=== PATIENT | male | born 1950 | race Caucasian/White ===

== ENCOUNTER 2017-01-09 20:58 | Observation (INO) | payer MEDICARE, OTHER ==
[~2017-01-09] VITALS: Ht 167.6 cm; Wt 79.6 kg
[~2017-01-09 20:58] MED LIST: ACET325T PO; BACL10TA PO; CARV3.12 PO; CLON0.5T PO; CLOP75TA PO; DEXI30CA PO; DONE10TA7 PO; FERR325T PO; FLUO40CA PO; GABA600T PO; LOVA10TA PO; MUCI30TA2 PO; MUCI600T PO; MULT-135 PO; NORC5TAB PO; OXYGENTANK NAS.CANULA; PRED10PA2 PO; SINE25TA PO; SYMB160A INH; TAMS0.4C4 PO; VENTAER INH
[2017-01-09 20:59] VITALS: BP 132/61; PULSE 100; RESP 18; TEMP 98.6; O2SAT 96
[2017-01-09 21:00] VITALS: O2SAT 91
[2017-01-09 21:08] VITALS: BP 101/56; PULSE 105; RESP 16; O2SAT 94
[2017-01-09] MEDS ORDERED: SODIUM CHLOR 0.9% 1000 ML INJ 1,000 ML IV ONE (21:16)
--- NOTE | 2017-01-09 21:16 | PD ---
HPI Chief Complaint: headache Time Seen by Provider: 21:16 Travel History International Travel<30 days: No Contact w/Intl Traveler<30days: No Traveled to known affect area: No History of Present Illness HPI 66-year-old male presents to the emergency department by EMS transport with 1-1/ 2 hour complaint of sudden onset right retro-orbital severe headache with photophobia and nausea no vomiting and en route to the hospital development of slurred speech. Patient with prior history of subarachnoid hemorrhage 3 years ago. Patient is presently on Plavix. Patient was found to be normotensive en route to the hospital. Blood sugar in normal range. Patient with history of COPD, anxiety depression, dyslipidemia, dementia, hematuria, parkinsonism, subarachnoid hemorrhage with seizure with previous coil placement 3 years ago in [place], [place] and laminectomy of cervical spine. PFSH Past Medical History Asthma: No Autoimmune Disease: No Blood Disorders: No Anxiety: Yes Depression: Yes Heart Rhythm Problems: Yes (Palpitations) Cancer: No Cardiovascular Problems: Yes (Stents) High Cholesterol: Yes Chemotherapy: No Chest Pain: No COPD: Yes Dementia: Yes Diabetes: No Diminished Hearing: No Diverticulitis: Yes Endocrine: No Genitourinary: Yes Hepatitis: No Hiatal Hernia: No Hypertension: Yes Immune Disorder: No Insomnia: Yes Musculoskeletal: Yes (Neck) Neurologic: Yes (Parkinsons) Psychiatric: Yes Reproductive: No Respiratory: Yes Immunizations Current: Yes Radiation Therapy: No Seizures: Yes (WHEN HAD SUARACHNOID HEMORRHAGE) Sleep Apnea: No Thyroid Disease: No Past Surgical History Abdominal Surgery: No Cardiac Surgery: No Ear Surgery: No Endocrine Surgery: No Eye Surgery: No Genitourinary Surgery: No Neurologic Surgery: Yes (STENT IN SUBARACHNOID ARTERY) Oral Surgery: No Thoracic Surgery: Yes (BACK, CERVICLE FUSION, LAMENECTOMY) Social History Alcohol Use: No (QUIT 3 MONTHS AGO) Tobacco Use: Yes (1 PPD) Substance Use: No Allergies-Medications (Allergen,Severity, Reaction): Coded Allergies: No Known Allergies (Unverified , 01/09/17) Reported Meds & Prescriptions Reported Meds & Active Scripts Active Oxygen tank (Oxygen) 1 Ea Tank 2 Liter CAMERON.CANULA CONTINUOUS Oxygen Concentrator Portable Gaseous 2 L/min via Nasal Cannula Continuous For 99 months Reported Meloxicam 15 Mg Tab 15 Mg PO DAILY Potassium Chloride ER (Potassium Chloride) 10 Meq Cap 10 Meq PO DAILY Lasix (Furosemide) 40 Mg Tab 40 Mg PO DAILY Acetaminophen 325 Mg Tab 650 Mg PO Q4H PRN Mucinex DM (Dextromethorphan-Guaifenesin) 30-600 Mg Tab 1 Tab PO BID PRN Gabapentin 600 Mg Tab 600 Mg PO TID Tamsulosin (Tamsulosin HCl) 0.4 Mg Cap 0.4 Mg PO HS Lovastatin 10 Mg Tab 10 Mg PO HS Donepezil 10 Mg Tab 10 Mg PO HS [place] (Hydrocodone-Acetaminophen) 5-325 mg Tab 1 Tab PO BID Sinemet (Carbidopa-Levodopa) 25-100 Mg Tab 1 Tab PO TID Symbicort Inh (Budesonide/Formoterol Fumarate) 160-4.5 Mcg/Act Aero 1 Puff INH Q12HR Mucinex ER 12 HR (Guaifenesin) 600 Mg Tasha 600 Mg PO BID Ferrous Sulfate 325 Mg Tab 325 Mg PO BID Clonazepam 0.5 Mg Tab 0.5 Mg PO BID Carvedilol 3.125 Mg Tab 3.125 Mg PO BID Multi Vitamin (Multiple Vitamin) 1 Tab Tab 1 Tab PO DAILY Fluoxetine (Fluoxetine HCl) 40 Mg Cap 40 Cap PO DAILY Dexilant (Dexlansoprazole) 30 Mg Cap 30 Mg PO DAILY Clopidogrel (Clopidogrel Bisulfate) 75 Mg Tab 75 Mg PO DAILY Ventolin Hfa 18 GM Inh (Albuterol Sulfate) 90 Mcg/Act Aer 2 Puff INH Q4H PRN Baclofen 10 Mg Tab 10 Mg PO TID Review of Systems Except as stated in HPI: all other systems reviewed are Neg General / Constitutional: No: Fever Eyes: Positive: Visual changes ( left field deficit --old) HENT: No: Congestion Cardiovascular: No: Chest Pain or Discomfort Respiratory: No: Cough Gastrointestinal: No: Nausea, Vomiting Genitourinary: No: Flank Pain Musculoskeletal: No: Myalgias, Arthralgias Skin: No Rash Neurologic: Positive: Weakness, Headache, Slurred Speech, No: Paresthesia Psychiatric: No: Anxiety Hematologic/Lymphatic: No: Easy Bruising Physical Exam Narrative GENERAL: Well-developed well-nourished male in obvious discomfort holding his head;; GCS 15 SKIN: Warm and dry. HEAD: Atraumatic. Normocephalic. EYES: Pupils equal and round. No scleral icterus. No injection or drainage. ENT: No nasal bleeding or discharge. Mucous membranes pink and moist. NECK: Trachea midline. No JVD. No nuchal rigidity. CARDIOVASCULAR: Regular rate and rhythm. RESPIRATORY: No accessory muscle use. Clear to auscultation. Breath sounds equal bilaterally. GASTROINTESTINAL: Abdomen soft, non-tender, nondistended. Hepatic and splenic margins not palpable. MUSCULOSKELETAL: Extremities without clubbing, cyanosis, or edema. No obvious deformities. NEUROLOGICAL: Awake and alert. No obvious cranial nerve deficits; patient was noted left eye left lateral field cut. Motor grossly within normal limits. Five out of 5 muscle strength in the arms and legs. Mild right-sided pronator drift. Mild lower extremity limb ataxia. Mild slurred speech speech. NIHSS:4 PSYCHIATRIC: Appropriate mood and affect; insight and judgment normal. Data Data Last Documented VS Vital Signs Date Time Temp Pulse Resp B/P Pulse Ox O2 Delivery O2 Flow Rate FiO2 01/09/17 21:39 94 Nasal Cannula 2 01/09/17 21:08 105 16 101/56 01/09/17 20:59 98.6 Orders Diet Npo (01/10/17 Breakfast) Activity Bed Rest (01/09/17 ) Electrocardiogram (01/09/17 ) I-Stat Creatinine (01/09/17 21:16) I-Stat Profile (01/09/17 21:16) Prothrombin Time / Inr (Pt) (01/09/17 21:16) Act Partial Throm Time (Ptt) (01/09/17 21:16) Complete Blood Count With Diff (01/09/17 21:16) Fibrinogen (01/09/17 21:16) Creatine Kinase (Cpk) (01/09/17 21:16) Troponin I (01/09/17 21:16) Ua Includes Microscopic (01/09/17 21:16) Drug Screen, Random Urine (01/09/17 21:16) Type And Screen (01/09/17 21:16) Ct Brain W/O Iv Contrast(Rout) (01/09/17 ) Consult Neurology (01/09/17 ) Blood Glucose (01/09/17 21:16) Ecg Monitoring (01/09/17 21:16) Neuro Checks Q2HX12,Q4H (01/09/17 21:16) Nursing Bedside Swallow Assess .ONCE (01/09/17 21:16) Iv Access Insert/Monitor (01/09/17 21:16) NPO (01/09/17 21:16) Oximetry (01/09/17 21:16) Oxygen Administration (01/09/17 21:16) Sodium Chlor 0.9% 1000 Ml Inj (Ns 1000 M (01/09/17 21:16) Resp Oxygen Cameron C Titrat 1-4 L (01/09/17 21:16) Cath For Specimen (01/09/17 21:16) (Hub Use Only)Inp Phy Cons/Ref (01/09/17 ) Iohexol 350 Inj (Omnipaque 350 Inj) (01/09/17 21:25) Cta Brain W Iv Contrast W 3d (01/09/17 ) Cta Neck W Iv Contrast W 3d (01/09/17 ) Ondansetron Inj (Zofran Inj) (01/09/17 21:45) Sodium Chlor 0.9% 1000 Ml Inj (Ns 1000 M (01/09/17 21:45) Morphine Inj (Morphine Inj) (01/09/17 22:15) Alcohol (Ethanol) (01/09/17 22:05) Magnesium (Mg) (01/09/17 22:05) Admit Order (Ed Use Only) (01/09/17 ) ^ Saline Lock (01/09/17 22:42) Resp Oxygen Cameron C Titrat 1-4 L (01/09/17 ) ^ Notify Dr: Other (01/09/17 22:42) Sodium Chloride 0.9% Flush (Ns Flush) (01/10/17 09:00) Sodium Chloride 0.9% Flush (Ns Flush) (01/09/17 22:45) Labs Laboratory Tests Test 01/09/17 21:00 White Blood Count 6.3 TH/MM3 Red Blood Count 4.68 MIL/MM3 Hemoglobin 15.5 GM/DL Bedside Hemoglobin 16.0 G/DL Hematocrit 45.5 % Bedside Hematocrit 47.0 % Mean Corpuscular Volume 97.3 FL Mean Corpuscular Hemoglobin 33.2 PG Mean Corpuscular Hemoglobin 34.1 % Concent Red Cell Distribution Width 13.2 % Platelet Count 217 TH/MM3 Mean Platelet Volume 8.4 FL Neutrophils (%) (Auto) 62.6 % Lymphocytes (%) (Auto) 27.1 % Monocytes (%) (Auto) 9.8 % Eosinophils (%) (Auto) 0.4 % Basophils (%) (Auto) 0.1 % Neutrophils # (Auto) 3.9 TH/MM3 Lymphocytes # (Auto) 1.7 TH/MM3 Monocytes # (Auto) 0.6 TH/MM3 Eosinophils # (Auto) 0.0 TH/MM3 Basophils # (Auto) 0.0 TH/MM3 CBC Comment DIFF FINAL Differential Comment Prothrombin Time 10.0 SEC Prothromb Time International 0.9 RATIO Ratio Activated Partial 25.9 SEC Thromboplast Time Fibrinogen 356 mg/dL Bedside Sodium 141 MMOL/L Bedside Potassium 3.9 MMOL/L Bedside Chloride 102 MMOL/L Bedside Blood Urea Nitrogen 18 MG/DL Bedside Creatinine 1.0 MG/DL Bedside Glucose 116 MG/DL Total Creatine Kinase 162 U/L Troponin I LESS THAN 0.02 NG/ML MDM Medical Decision Making Medical Screen Exam Complete: Yes Emergency Medical Condition: Yes Interpretation(s) I-STAT chemistries within normal range with normal creatinine 1.0; hemoglobin hematocrit 16/47% EKG normal sinus rhythm rate 87 first-degree AV block no acute ST elevation or injury pattern change noted baseline artifact is present. Differential Diagnosis stroke alert, ICH/SAH, migraine variant Narrative Course Stroke alert called @ 8:57PM NSR no h/o afib; prior SAH 3 years ago "same symptoms"; NIHSS: 4 patient is alert not his name and month and unknown age has normal opening and closing of eyes resolved gaze appears intact does have a visual field except deficit to the left upper outer field no facial paralysis slight drift of right upper extremity left upper extremity normal right lower extremity normal function right lower extremity normal function mild limb ataxia of right lower extremity normal sensory exam no aphasia mild dysarthria and no inattention. To CT @ 9:05 PM Patient has returned from CT patient reassessed still noted to have field deficit however upon further investigation this is a chronic issue for him also continues to have some minimal drift of right upper extremity alkalosis not as noticed at this time and patient notes that has chronic lower extremity weakness related to previous and patient now reports he has noted a change in his speech over the past 1-2 days but the severe sudden onset headache today just prior to arrival. CTA resulted no vascula or aneurysmal changes; patient relays that he has noted a change in his speech at least since yesterday but his speech is different and slurred. Again -- the patient reports that the headache is new, the left visual disturbance is not new, the lower extremity weakness is not new and he has chronic weakness of all of his extremities since his SAH and his cervical laminectomy. Patient states his headache is the same as his prior SAH and he does not normally have severe headaches and denies migraine or cluster headaches. No FH SAH or ICH. No injury or fall. No recent infections Critical Care Narrative Aggregate critical care time was 35 minutes. Time to perform other separately billable procedures was not included in the critical care time. My time did not include minutes spent treating any other patients simultaneously or on activities that did not directly contribute to the patient's treatment. The services I provided to this patient were to treat and/or prevent clinically significant deterioration that could result in: Intracranial hemorrhage, I provided critical care services requiring my management, as noted below: Chart data review, documentation time, medication orders and management, vital sign assessments/reviewing monitor data, ordering and reviewing lab tests, ordering and interpreting/reviewing x-rays and diagnostic studies, care of the patient and discussion of the patient with the admitting physicians. Physician Communication Physician Communication @ 21:[address] Galeana [phone] --not good TPA candidate in view of SAH history--notify w rad CT read ( no obvious bleed by my read); rad reading called to Dr Galeana 21:34 not TPA candidate -- per nathaly Howard "no bleed, questionable left cerebellar infarct" ---:>wants CTA --images done at time of non contrast CT results pending. @ 21:56 CTA results conveyed to the neurologist; per Dr Galeana --patient is not a TPA candidate Discussed with ASHLYN Landaverde --admit to Dr Carey Diagnosis Primary Impression: Cephalalgia Additional Impressions: TIA (transient ischemic attack) Qualified Code: G45.9 - Transient cerebral ischemia, unspecified type COPD (chronic obstructive pulmonary disease) Qualified Code: J44.9 - Chronic obstructive pulmonary disease, unspecified COPD type History of subarachnoid hemorrhage Parkinsons Dementia Qualified Code: F03.90 - Dementia without behavioral disturbance, unspecified dementia type Admitting Information Admitting Physician Requests: Admit Manju Rios MD Jan 09, 2017 21:16
[2017-01-09 21:24] LABS: I-STAT POTASSIUM 3.9 MMOL/L (3.5-4.9); I-STAT SODIUM 141 MMOL/L (138-146)
[2017-01-09] MEDS ORDERED: IOHEXOL 350 MG/ML 10 ML VIAL (for RAD DIAG) IV ONE (21:25)
[2017-01-09 21:32] LABS: AUTOMATED NEUTROPHIL # 3.9 TH/MM3 (1.8-7.7); BASOPHIL % 0.1 % (0.0-2.0); EOSINOPHIL % 0.4 % (0.0-4.0); HEMATOCRIT 45.5 % (39.0-51.0); HEMO FLAGS DIFF FINAL; LYMPH % 27.1 % (9.0-44.0); LYMPHOCYTE # 1.7 TH/MM3 (1.0-4.8); MEAN CELL VOLUME 97.3 FL (80.0-100.0); MEAN CORPUSCULAR HEMOGLOBIN 33.2 PG (27.0-34.0); MEAN CORPUSCULAR HGB CONC 34.1 % (32.0-36.0); MONO % 9.8 % (0.0-8.0); NEUT % 62.6 % (16.0-70.0); PLATELET COUNT 217 TH/MM3 (150-450); RED BLOOD COUNT 4.68 MIL/MM3 (4.50-5.90); RED CELL DISTRIBUTION WIDTH 13.2 % (11.6-17.2); WHITE BLOOD COUNT 6.3 TH/MM3 (4.0-11.0)
--- NOTE | 2017-01-09 21:35 | RADRPT ---
EXAM DATE/TIME: 01/09/2017 21:11 [facility] COMPARISON: No previous studies available for comparison. INDICATIONS : Stroke alert; right sided weakness and slurred speech. RADIATION DOSE: 37.79 CTDIvol (mGy) Dr. Rios notified of these findings at 9: [address] Howard. MEDICAL HISTORY : Non-responsive. SURGICAL HISTORY : Non-responsive. ENCOUNTER: Initial ACUITY: 1 day PAIN SCALE: Non-responsive LOCATION: cranial TECHNIQUE: Multiple contiguous axial images were obtained of the head. Using automated exposure control and adj ustment of the mA and/or kV according to patient size, radiation dose was kept as low as reasonably a chievable to obtain optimal diagnostic quality images. FINDINGS: CEREBRUM: Coils in the right suprasellar cistern. Nonspecific white matter changes. The ventricles are normal f or age. No evidence of midline shift, mass lesion, hemorrhage or acute infarction. No extra-axial f luid collections are seen. POSTERIOR FOSSA: Questionable left cerebellar infarct. The brainstem is intact. The 4th ventricle is midline. The ce rebellopontine angle is unremarkable. EXTRACRANIAL: The visualized portion of the orbits is intact. SKULL: The calvaria is intact. No evidence of skull fracture. CONCLUSION: 1. Questionable left cerebellar infarct. 2. Status post coiling in the right suprasellar cistern/distal internal carotid artery. Constantine Howard MD on January 09, 2017 at 21:29 Board Certified Radiologist. This report was verified electronically.
[2017-01-09 21:37] LABS: APTT (PATIENT) 25.9 SEC (24.3-30.1); INTERNATIONAL NORMALIZED RATIO 0.9 RATIO
[2017-01-09 21:43] LABS: CREATINE KINASE 162 U/L (39-308)
--- NOTE | 2017-01-09 21:44 | RADRPT ---
EXAM DATE/TIME: 01/09/2017 21:11 [facility] COMPARISON: No previous studies available for comparison. INDICATIONS : Stroke alert, right sided weakness, blurred vision. IV CONTRAST: 79 cc Omnipaque 350 (iohexol) IV ; Cumulative dose for multiple exams. RADIATION DOSE: 28.07 CTDIvol (mGy) ; Combined studies MEDICAL HISTORY : None SURGICAL HISTORY : None. ENCOUNTER: Initial ACUITY: 1 day PAIN SCALE: 0/10 LOCATION: cranial TECHNIQUE: Volumetric scanning was performed using a multi-row detector CT scanner. The data was post processed with a variety of visualization algorithms including full volume maximum intensity projection, multi -planar sliding thin slab reformation, curved planar reformation, and surface rendering techniques. Using automated exposure control and adjustment of the mA and/or kV according to patient size, radiat ion dose was kept as low as reasonably achievable to obtain optimal diagnostic quality images. FINDINGS: There is excellent visualization of the major intracranial arteries out to the second-order branch ve ssels. There is no evidence for aneurysm, vessel truncation or stenosis, and no evidence for vascula r malformation. There is a stent within the distal right internal carotid artery. There are also adjacent coils from previous intervention. No residual aneurysm. No thrombosis, aneurysm or significant stenosis within t he middle, anterior or posterior vertebral arteries. Vertebrobasilar junction normal. CONCLUSION: 1. Stent within the distal right internal carotid artery and adjacent coils. No residual aneurysm see n. 2. No thrombus or stenosis. Constantine Howard MD on January 09, 2017 at 21:35 Board Certified Radiologist. This report was verified electronically.
[2017-01-09] MEDS ORDERED: SODIUM CHLOR 0.9% 1000 ML INJ 1,000 ML IV SCH ×2 (21:45→23:09)
[2017-01-09] MEDS ORDERED: ONDANSETRON HCL 4 MG/2 ML VIAL IV PUSH ONE (21:45)
[2017-01-09] MEDS ORDERED: MORPHINE SULFATE 4 MG/ML INJ IV PUSH ONE (22:15)
--- NOTE | 2017-01-09 22:23 | RADRPT ---
EXAM DATE/TIME: 01/09/2017 21:11 [facility] COMPARISON: No previous studies available for comparison. INDICATIONS : Stroke alert; slurred speech. IV CONTRAST: 79 cc Omnipaque 350 (iohexol) IV ; Cumulative dose for multiple exams. RADIATION DOSE: 28.07 CTDIvol (mGy) ; Combined studies MEDICAL HISTORY : Non-responsive. SURGICAL HISTORY : Non-responsive. ENCOUNTER: Initial ACUITY: 1 day PAIN SCALE: Non-responsive LOCATION: neck Elevated flow velocities and ICA/CCA ratios have been found to correlate with increased degrees of vessel stenosis, calculated as percentage of diameter relative to a normal segment of distal ICA/CCA. TECHNIQUE: Volumetric scanning was performed using a multirow detector CT scanner. The data was post processed with a variety of visualization algorithms including full-volume maximum intensity projection, multip lanar sliding thin-slab reformation, curved-planar reformation, and surface-rendering techniques. Us ing automated exposure control and adjustment of the mA and/or kV according to patient size, radiatio n dose was kept as low as reasonably achievable to obtain optimal diagnostic quality images. FINDINGS: AORTIC ARCH: There is a three-vessel origin of the great vessels from the aorta. No evidence of ostial narrowing. RIGHT CAROTID: The common carotid artery is intact. The carotid bulb has a normal configuration without ulceration o r narrowing. The internal carotid artery lumen is smooth without stenosis. The external carotid zac ry is intact. LEFT CAROTID: The common carotid artery is intact. The carotid bulb has a normal configuration without ulceration or narrowing. The internal carotid artery lumen is smooth without stenosis. The external carotid ar aziza is intact. VERTEBRALS: The vertebral arteries have a symmetric diameter. No stenotic lesions are seen. CONCLUSION: 1. No carotid stenosis or thrombus. Constantine Howard MD on January 09, 2017 at 22:18 Board Certified Radiologist. This report was verified electronically.
[2017-01-09] MEDS ORDERED: POTA10CA PO (22:29)
[2017-01-09] MEDS ORDERED: MELO-1 PO (22:29)
[2017-01-09] MEDS ORDERED: FURO1TAB60 PO (22:29)
[2017-01-09 22:45] LABS: MAGNESIUM 2.3 MG/DL (1.5-2.5)
[2017-01-09] MEDS ORDERED: SODIUM CHLORIDE 0.9% FLUSH 5 ML FLUSH IVF PRN (22:45)
[2017-01-09 22:48] VITALS: O2SAT 91
[2017-01-09] MEDS ORDERED: ONDANSETRON HCL 4 MG/2 ML VIAL IVP PRN (23:15)
[2017-01-09] MEDS ORDERED: LORazepam 1 MG TAB PO PRN (23:15)
[2017-01-09] MEDS ORDERED: LORazepam 2 MG/ML VIAL IV PUSH PRN ×4 (23:15)
[2017-01-09] MEDS ORDERED: NALOXONE HCL 0.4 MG/ML AMP IV PRN (23:15)
[2017-01-09] MEDS ORDERED: SODIUM CHLORIDE 0.9% FLUSH 5 ML FLUSH FLUSH PRN (23:15)
[2017-01-09] MEDS ORDERED: LORazepam 2 MG TAB PO PRN (23:15)
[2017-01-09] MEDS ORDERED: ACETAMINOPHEN 325 MG TAB PO PRN (23:15)
[2017-01-10] VITALS (7 sets, daily range): BP systolic 106–130; BP diastolic 67–78; PULSE 66–75; RESP 18–20; TEMP 95.8–97; O2SAT 90–94
[2017-01-10 00:07] LABS: BLOOD, URINE NEG (NEG); GLUCOSE,URINE NEG (NEG); HYALINE CAST, URINE 4 /lpf (RARE); KETONE, URINE NEG (NEG); MUCUS URINE FEW /lpf (OCC); NITRITE,URINE NEG (NEG); PH, URINE 5.5 (5.0-8.5); URINE COLOR YELLOW (YELLW/STRAW)
[2017-01-10 00:09] LABS: AMPHETAMINE, URINE NEG (NEG); BARBITURATES, URINE NEG (NEG); COCAINE, URINE NEG (NEG)
[2017-01-10] MEDS: THIAMINE INJ 100 MG in SODIUM CHLORIDE 0.9% INJ 100 ML IV SCH (00:46)
[2017-01-10] MEDS ORDERED: MORPHINE SULFATE 4 MG/ML INJ IV ONE (02:45)
[2017-01-10] MEDS ORDERED: ACETAMINOPHEN 325 MG TAB PO PRN (02:45)
--- NOTE | 2017-01-10 08:50 | HHI.HP ---
[facility] Unknown Admission Diagnosis Acute cephalgia h/o SAH; TIA/CVA; COPD Diagnoses: Chief Complaint: headache (Zaida Shrestha Wil AGUIRRE) Travel History International Travel<30 Days: No Contact w/Intl Traveler <30 Da: No Traveled to Known Affected Are: No (Zaida ShresthaEryn AGUIRRE) History of Present Illness This is a 66-year-old male patient with history hypertension, bladder cancer on remission, seizure after subarachnoid hemorrhage 3 years ago for which she had stent placed intracranially, brain aneurysms, tobacco abuse, chronic back and neck pain secondary to cervical spine laminectomy. Patient has residual short- term memory and has chronic weakness of legs left greater than right as well as arms. He does use a walker for ambulation. Patient presented to the emergency room via EMS complaining of 1-1/2 hour sudden onset of right frontal orbital headache associated with photophobia and nausea no vomiting. Patient was concerned as this was the type of headache he had when he had the subarachnoid hemorrhage 3 years ago. Patient is on Plavix. Patient is also a resident at assisted living facility for the last year. Patient presented as a stroke alert. Initially he was thought to have a left lateral visual cut defect but this was noted to be old. He was also noted with some mild slurred speech. NIH stroke scale was 4. A CT of the head was completed that was suggestive of possible old left cerebellar infarct. CTA was negative. Head CTA shows stent within the right distal internal carotid artery and adjacent coils. No residual aneurysms were seen. No thrombus or stenosis. Neurology was contacted from the emergency room. No TPA was given. Last Impressions Neck CTA 01/09/17 0000 Signed Impressions: Service Date/Time: Monday, January 09, 2017 21:11 - CONCLUSION: 1. No carotid stenosis or thrombus. Constantine Howard MD Head CTA 01/09/17 0000 Signed Impressions: Service Date/Time: Monday, January 09, 2017 21:11 - CONCLUSION: 1. Stent within the distal right internal carotid artery and adjacent coils. No residual aneurysm seen. 2. No thrombus or stenosis. Constantine Howard MD Head CT 01/09/17 0000 Signed Impressions: Service Date/Time: Monday, January 09, 2017 21:11 - CONCLUSION: 1. Questionable left cerebellar infarct. 2. Status post coiling in the right suprasellar cistern/distal internal carotid artery. Constantine Howard MD Patient has been evaluated per neurology, neurology workup is in progress. At this time patient indicates headache is relieved. He is slow to respond, and has occasional trouble with more finding which is not new. He is a poor historian, endorses short-term memory loss. He does have some mild tremors to upper extremities for which he is on Sinemet. Patient denies alcohol abuse, however his ethyl alcohol level was 162. Patient is admitted for further evaluation and treatment. (Zaida Shrestha) Review of Systems ROS Limitations: Speech Impaired, Poor Historian Respiratory: COMPLAINS OF: Wheezing, Shortness of breath Neurologic: COMPLAINS OF: Abnormal gait, Headache, Localized weakness, Tremor, Poor Balance (Zaida Shrestha) Past Family Social History Past Medical History COPD Parkinson's disease SAH s/p stenting (seizures only with acute SAH) HTN HLD anxiety BPH Chronic neck/back pain Bladder cancer, on remission, sees Dr. Isabel Tobacco abuse ? ETOH use Short term memory loss Past Surgical History Cerebral artery stenting Cervical spine fusion Laminectomy Cystoscopies Reported Medications Reported Meds & Active Scripts Active Oxygen tank (Oxygen) 1 Ea Tank 2 Liter [place] CONTINUOUS Oxygen Concentrator Portable Gaseous 2 L/min via Nasal Cannula Continuous For 99 months Reported Meloxicam 15 Mg Tab 15 Mg PO DAILY Potassium Chloride ER (Potassium Chloride) 10 Meq Cap 10 Meq PO DAILY Lasix (Furosemide) 40 Mg Tab 40 Mg PO DAILY Acetaminophen 325 Mg Tab 650 Mg PO Q4H PRN Mucinex DM (Dextromethorphan-Guaifenesin) 30-600 Mg Tab 1 Tab PO BID PRN Gabapentin 600 Mg Tab 600 Mg PO TID Tamsulosin (Tamsulosin HCl) 0.4 Mg Cap 0.4 Mg PO HS Lovastatin 10 Mg Tab 10 Mg PO HS Donepezil 10 Mg Tab 10 Mg PO HS [place] (Hydrocodone-Acetaminophen) 5-325 mg Tab 1 Tab PO BID Sinemet (Carbidopa-Levodopa) 25-100 Mg Tab 1 Tab PO TID Symbicort Inh (Budesonide/Formoterol Fumarate) 160-4.5 Mcg/Act Aero 1 Puff INH Q12HR Mucinex ER 12 HR (Guaifenesin) 600 Mg Tasha 600 Mg PO BID Ferrous Sulfate 325 Mg Tab 325 Mg PO BID Clonazepam 0.5 Mg Tab 0.5 Mg PO BID Carvedilol 3.125 Mg Tab 3.125 Mg PO BID Multi Vitamin (Multiple Vitamin) 1 Tab Tab 1 Tab PO DAILY Fluoxetine (Fluoxetine HCl) 40 Mg Cap 40 Cap PO DAILY Dexilant (Dexlansoprazole) 30 Mg Cap 30 Mg PO DAILY Clopidogrel (Clopidogrel Bisulfate) 75 Mg Tab 75 Mg PO DAILY Ventolin Hfa 18 GM Inh (Albuterol Sulfate) 90 Mcg/Act Aer 2 Puff INH Q4H PRN Baclofen 10 Mg Tab 10 Mg PO TID (Zaida Shrestha) Allergies: Coded Allergies: No Known Allergies (Unverified , 01/09/17) Active Ordered Medications Inpatient Medications Acetaminophen (Tylenol) 650 mg Q4H PRN PO TEMP > 100.4; Start 01/09/17 at 23:15 Acetaminophen 650 mg 650 mg Q4H PRN PO PAIN SCALE 1 TO 10; Start 01/10/17 at 02 :45 Clopidogrel Bisulfate (Plavix) 75 mg DAILY PO ; Start 01/10/17 at 09:00 Folic Acid (Folate) 1 mg DAILY PO ; Start 01/10/17 at 09:00; Stop 01/15/17 at 08 :59 IV Flush (NS Flush) 2 ml BID FLUSH ; Start 01/10/17 at 09:00 Lorazepam (Ativan Inj) 2 mg Q15M PRN IV PUSH CIWA > 20; Start 01/09/17 at 23:15 Lorazepam (Ativan) 2 mg Q2H PRN PO CIWA 11-14; Start 01/09/17 at 23:15 Morphine Sulfate (Morphine Inj) 2 mg ONCE ONCE IV Last administered on t 04:47; Start 01/10/17 at 02:45; Stop 01/10/17 at 02:46; Status DC Multivitamins/ Minerals Therapeutic 1 tab 1 tab DAILY PO ; Start 01/10/17 at 09: 00; Stop 01/15/17 at 08:59 Naloxone HCl (Narcan Inj) 0.4 mg UNSCH PRN IV SEE LABEL COMMENTS; Start at 23:15 Ondansetron HCl (Zofran Inj) 4 mg Q6H PRN IVP NAUSEA OR VOMITING; Start at 23:15 Sodium Chloride (NS 1000 ml Inj) 1,000 ml @ 75 mls/hr [id number] IV ; Start at 08:03 Thiamine HCl (Vitamin B1) 100 mg DAILY PO ; Start 01/13/17 at 09:00 Thiamine HCl/ Sodium Chloride (Thiamine Inj/NS Inj) 101 ml @ 100 mls/hr Q24H IV Last administered on 01/10/17t 00:46; Start 01/10/17 at 00:00; Stop at 00:00 Family History Mother from old age Father from brain bleed Social History , has grown kids, lives at [facility] x 1 years. Smokes 1 ppd for "many years" , no illegal drug use, quit drinking 1 year ago. Uses walker for ambulation ( Zaida Shrestha) Physical Exam Vital Signs Vital Signs Date Time Temp Pulse Resp B/P Pulse Ox O2 Delivery O2 Flow Rate FiO2 01/10/17 08:14 95.8 67 18 130/78 94 01/10/17 04:45 96.3 71 20 118/68 92 01/10/17 02:24 95.8 73 18 106/73 93 01/09/17 22:48 91 Nasal Cannula 2.00 01/09/17 21:39 94 Nasal Cannula 2 01/09/17 21:08 105 16 101/56 94 Nasal Cannula 2 01/09/17 21:00 91 4.00 01/09/17 21:00 91 Nasal Cannula 4.00 01/09/17 20:59 98.6 100 18 132/61 96 Nasal Cannula 3 Physical Exam GENERAL: This is a well-nourished, well-developed patient, in no apparent distress. SKIN: No rashes, ecchymoses or lesions. Cool and dry. HEAD: Atraumatic. Normocephalic. No temporal or scalp tenderness. EYES: Pupils equal round and reactive. Extraocular motions intact. No scleral icterus. No injection or drainage. ENT: Nose without bleeding, purulent drainage or septal hematoma. Throat without erythema, tonsillar hypertrophy or exudate. Uvula midline. Airway patent. NECK: Trachea midline. No JVD or lymphadenopathy. Supple, nontender, no meningeal signs. CARDIOVASCULAR: Regular rate and rhythm without murmurs, gallops, or rubs. RESPIRATORY: Diminished, poor inspiratory effort, diffuse expiratory wheezing. GASTROINTESTINAL: Abdomen soft, non-tender, nondistended. No hepato-splenomegaly , or palpable masses. No guarding. MUSCULOSKELETAL: Extremities without clubbing, cyanosis, or edema. No joint tenderness, effusion, or edema noted. No calf tenderness. Negative Homans sign bilaterally. NEUROLOGICAL: Awake, alert oriented 3, slow to respond. Poor historian. At times has trouble with word finding. Follow simple commands. He is noted with mild tremors to upper extremities. Slight weakness noted lower extremities left greater than right which she indicates is chronic. Laboratory Laboratory Tests Test 01/09/17 01/09/17 01/09/17 21:00 23:40 23:50 White Blood Count 6.3 Red Blood Count 4.68 Hemoglobin 15.5 Bedside Hemoglobin 16.0 Hematocrit 45.5 Bedside Hematocrit 47.0 Mean Corpuscular Volume 97.3 Mean Corpuscular Hemoglobin 33.2 Mean Corpuscular Hemoglobin 34.1 Concent Red Cell Distribution Width 13.2 Platelet Count 217 Mean Platelet Volume 8.4 Neutrophils (%) (Auto) 62.6 Lymphocytes (%) (Auto) 27.1 Monocytes (%) (Auto) 9.8 Eosinophils (%) (Auto) 0.4 Basophils (%) (Auto) 0.1 Neutrophils # (Auto) 3.9 Lymphocytes # (Auto) 1.7 Monocytes # (Auto) 0.6 Eosinophils # (Auto) 0.0 Basophils # (Auto) 0.0 CBC Comment DIFF FINAL Differential Comment Prothrombin Time 10.0 Prothromb Time International 0.9 Ratio Activated Partial 25.9 Thromboplast Time Fibrinogen 356 Bedside Sodium 141 Bedside Potassium 3.9 Bedside Chloride 102 Bedside Blood Urea Nitrogen 18 Bedside Creatinine 1.0 Bedside Glucose 116 Magnesium Level 2.3 Total Creatine Kinase 162 Troponin I LESS THAN 0.02 Ethyl Alcohol Level 162 Urine Color YELLOW Urine Turbidity CLEAR Urine pH 5.5 Urine Specific [place] 1.033 Urine Protein NEG Urine Glucose (UA) NEG Urine Ketones NEG Urine Occult Blood NEG Urine Nitrite NEG Urine Bilirubin NEG Urine Urobilinogen LESS THAN 2.0 Urine Leukocyte Esterase NEG Urine RBC LESS THAN 1 Urine WBC 1 Urine Hyaline Casts 4 Urine Mucus FEW Microscopic Urinalysis Comment Urine Opiates Screen POS Urine Barbiturates Screen NEG Urine Amphetamines Screen NEG Urine Benzodiazepines Screen NEG Urine Cocaine Screen NEG Urine Cannabinoids Screen NEG Blood Type O POSITIVE Antibody Screen NEGATIVE Blood Bank Comment (Zaida Shrestha) Result Diagram: 01/09/17 2100 Imaging Last Impressions Neck CTA 01/09/17 0000 Signed Impressions: Service Date/Time: Monday, January 09, 2017 21:11 - CONCLUSION: 1. No carotid stenosis or thrombus. Constantine Howard MD Head CTA 01/09/17 0000 Signed Impressions: Service Date/Time: Monday, January 09, 2017 21:11 - CONCLUSION: 1. Stent within the distal right internal carotid artery and adjacent coils. No residual aneurysm seen. 2. No thrombus or stenosis. Constantine Howard MD Head CT 01/09/17 0000 Signed Impressions: Service Date/Time: Monday, January 09, 2017 21:11 - CONCLUSION: 1. Questionable left cerebellar infarct. 2. Status post coiling in the right suprasellar cistern/distal internal carotid artery. Constantine Howard MD (Zaida Shrestha) Assessment and Plan Problem List: (1) Cephalalgia (2) History of subarachnoid hemorrhage (3) COPD (chronic obstructive pulmonary disease) (4) Dementia (5) Parkinsons (6) HLD (hyperlipidemia) (7) HTN (hypertension) (8) Anxiety Assessment and Plan Admit to Dr. Carey 66-year-old male patient with history of brain aneurysm, seizure after subarachnoid hemorrhage 3 years ago for which he had stent placed intracranially , chronic back and neck pain secondary to cervical spine laminectomy. Patient presented with right frontal headache associated with photophobia, nausea, no vomiting. There was also reported slurred speech. Patient presented initially to stroke alert, however symptoms appear to be chronic and not new. CT showed possible cerebellar infarct. Admitted for possible CVA versus migraine, also with elevated blood alcohol level -Continue with neuro checks Head of bed down -Normal saline at 75 an hour Neurology has been consulted, workup is in progress. Their input is appreciated. -Brain MRI has been ordered, we will follow up on results PT, OT and speech therapy -Echo, EEG have been ordered. -Seizure precautions -Continue with thiamine Positive alcohol use -CIWA protocol -Continue with Thiamine Chronic back and neck pain, history of cervical laminectomy Continue with [place] twice a day for pain COPD, continues to smoke Tobacco abuse counseling completed Duo nebs when necessary for wheezing Hypertension, actually blood pressure is running 100s to 130s Permissive hypertension for the next 24 hours Hyperlipidemia Lipid profile has been ordered Resume statins Home medications have been reviewed, initiated as indicated SCDs for DVT prophylaxis Protonix for GI prophylaxis Plan of care has been discussed with the patient, attending and registered nurse. Further management of the patient will be dependent on the hospital course This patient was seen by myself and Dr. aCrey, this H&P is written on his behalf (Zaida Shrestha) Assessment and Plan pt is seen & Examined d.w PT d/w Zaida d/w RN Neuro input appreciated MRI brain [p] EEG [p] cont current tx see Orders will f/u (Sugar Carey MD) Physician Certification 2 Midnight Certification Type: Admission for Inpatient Services Order for Inpatient Services The services are ordered in accordance with Medicare regulations or non- Medicare payer requirements, as applicable. In the case of services not specified as inpatient-only, they are appropriately provided as inpatient services in accordance with the 2-midnight benchmark. Estimated LOS (days): 2 2 days is the estimated time the patient will need to remain in the hospital, assuming treatment plan goals are met and no additional complications. Post-Hospital Plan: [facility]E (Zaida Shrestha) Problem Qualifiers (1) Cephalalgia: (2) COPD (chronic obstructive pulmonary disease): Qualified Code: J44.9 - Chronic obstructive pulmonary disease, unspecified COPD type (3) Dementia: Qualified Code: F03.90 - Dementia without behavioral disturbance, unspecified dementia type (4) HLD (hyperlipidemia): Qualified Code: E78.5 - Hyperlipidemia, unspecified hyperlipidemia type (5) HTN (hypertension): Qualified Code: I10 - Essential hypertension Zaida Shrestha Jan 10, 2017 08:50 Sugar Carey MD Jan 10, 2017 11:42
[2017-01-10] MEDS ORDERED: SODIUM CHLORIDE 0.9% FLUSH 5 ML FLUSH IVF SCH (09:00)
[2017-01-10] MEDS: BUDESONIDE-FORMOTEROL 160/4.5 MCG INHALER INH SCH ×2 (09:00→20:37)
[2017-01-10] MEDS: BACLOFEN 10 MG TAB PO SCH ×3 (09:42→17:24)
[2017-01-10] MEDS: CARBIDOPA/LEVODOPA 25 MG/100 MG TAB PO SCH ×3 (09:42→17:25)
[2017-01-10] MEDS: GABAPENTIN 300 MG CAP PO SCH ×3 (09:42→17:25)
[2017-01-10] MEDS: FOLIC ACID 1 MG TAB PO SCH (09:42)
[2017-01-10] MEDS: MULTIVITAMINS/MINERALS THERAPEUTIC TAB PO SCH (09:42)
[2017-01-10] MEDS: guaiFENesin E.R. 600 MG TAB PO SCH ×2 (09:43→20:38)
[2017-01-10] MEDS: CLOPIDOGREL 75 MG TAB PO SCH (09:43)
[2017-01-10] MEDS: FERROUS SULFATE 325 MG (65 MG ELEMENTAL IRON) TAB PO SCH ×2 (09:43→20:40)
[2017-01-10] MEDS: PANTOPRAZOLE SOD 20 MG DELAYED RELEASE TAB PO SCH (09:44)
[2017-01-10] MEDS: FLUoxetine HCL 20 MG CAP PO SCH (09:44)
[2017-01-10] MEDS: SODIUM CHLORIDE 0.9% FLUSH 5 ML FLUSH FLUSH SCH ×2 (09:45→20:43)
[2017-01-10] MEDS: SODIUM CHLOR 0.9% 1000 ML INJ 1,000 ML IV SCH (09:45)
--- NOTE | 2017-01-10 10:23 | MB ---
cc: AURELIA BLACKMAN DATE OF CONSULTATION 01/10/2017 HISTORY OF PRESENT ILLNESS A 66-year-old right-handed man with a history of hypertension, bladder cancer about a year ago not currently being treated, seizure with subarachnoid hemorrhage three years ago for which he had Abie placed in his aneurysms and also a stent intracranially the which he takes Plavix at [facility] in [place], [place]. He has had a little bit of short-term memory problems, some tremors for which he has been treated with Sinemet for. He walks sometimes with a walker, sometimes without it. He is fairly independent, lives at [facility]. He had a headache, about one per week, usually starts at the back of his head on the left and comes up, then yesterday over about an hour he had developed a headache started in the front; it was throbbing, had some nausea and came into the hospital. A Stroke Alert was called. He had photophobia. He had some slurred speech. He was normotensive. His sugar was normal. He was noted to have a history of COPD, anxiety, depression, laminectomy of the cervical spine and it was thought he had a left lateral visual field cut but then it was noted that that was old. He says the sun [place] He had some mild slurred speech. His NIH Stroke Scale was 4. It was decided that the vision problem was old, his slurred speech was minimal and he was not given TPA. A CT scan of the brain suggested possible old left cerebellar infarct. The patient then noted he had some slurred speech over the last 1-2 days. CTA showed no aneurysm change. He was subsequently not given t-PA. REVIEW OF SYSTEMS He denies any history of diabetes, hypercholesterolemia, ID, stent angioplasty, A-fib, Coumadin, renal, hepatic disease. There is a history of COPD. No history of thyroid disease, lupus, ulcer. SOCIAL HISTORY He still smokes. I have asked him to stop. He is not a drinker. Lives in an [facility]. FAMILY HISTORY Negative for cancer, seizure or stroke. MEDICATIONS He takes oxygen. ALLERGIES No known drug allergies. MEDICATIONS 1. He is on Mobic 15 mg a day. 2. Potassium. 3. Lasix. 4. Tylenol. 5. Mucinex. 6. Neurontin 600 t.i.d. 7. Tamsulosin. 8. Lovastatin. 9. Aricept 10 at night. 10. [place]. 11. Sinemet 25/100 t.i.d. 12. Symbicort. 13. Iron. 14. Klonopin 0.5 b.i.d. 15. Carvedilol. 16. Multiple vitamin. 17. Duloxetine 40 a day. 18. Dexilant 30 mg per day. 19. Plavix 75 a day for the stent. 20. Ventolin. 21. Baclofen 10 t.i.d. PHYSICAL EXAMINATION VITAL SIGNS: Afebrile, 71, 21, 118/68. NECK: There are no carotid bruits. HEART: Regular rhythm. I do not detect a murmur. NEUROLOGIC: Pupils are equal. Visual trinh normal and full including the left eye. Extraocular movements intact without nystagmus. Face is symmetric with normal station. Tongue was midline. There is no drift. He had normal strength in upper and lower extremities bilaterally. Toes downgoing bilaterally. Pinprick and vibratory sense are intact throughout. He is not ataxic on [id number] but he does have a coarse tremor right more the left upper extremity with intention but not at rest and a little bit of tremor in the lower extremities also with intention. He is not ataxic on [id number]. LABORATORY DATA CBC was normal. The urine drug screen positive for opiates. Alcohol level was 162, although he says he is not really much of a drinker. UA was negative. Basic metabolic profile essentially normal. CPK and troponin normal. LFTs were normal in August of last year. Coags normal. 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 CTA [place] of [place] - Stent of the distal right internal carotid artery with adjacent coils. No aneurysm noted, although the patient said he did not have any coils. Neck CTA - No carotid stenosis, vertebrals were symmetric. IMPRESSION AND PLAN He appears to be back to his baseline. I wonder how much he was drinking. Although he says he does not drink much, he had some alcohol in his blood. Most likely a migraine attack. He says he is MRI compatible and we will go ahead and do an MRI of the brain and an EEG, check some B12 and thyroid on him. We can get him up, out of bed. He can ambulate. I would recommend he quit smoking. We will check an echo on him. Watch him on telemetry. MD SACHIN Franklin/JAMIE /8:00 AM /10:20 AM
[2017-01-10 10:32] LABS: FREE T4 0.86 NG/DL (0.76-1.46); HDL CHOLESTEROL 112.7 MG/DL (40.0-60.0)
[2017-01-10] MEDS: POTASSIUM CHLORIDE 10 MEQ CAP PO SCH (11:18)
--- NOTE | 2017-01-10 14:41 | EKG ---
Date Performed: 01/09/2017 Time Performed: 21:50:51 PTAGE: 66 years EKG: Sinus rhythm WITH FIRST DEGREE AV BLOCK ABNORMAL ECG PREVIOUS TRACING : 09/12/2016 15.19 Compared to prior tracing no significant change DOCTOR: Ramin Klein Interpretating Date/Time 01/10/2017 14:39:41
[2017-01-10 14:48] LABS: ANA SCREEN NEG (NEG)
--- NOTE | 2017-01-10 15:45 | EC ---
Study Study Date:01/10/2017 STUDY CONCLUSIONS SUMMARY - Left ventricle: The cavity size was normal. Wall thickness was normal. Systolic function was normal. The estimated ejection fraction was in the range of 55% to 60%. Wall motion was normal; there were no regional wall motion abnormalities. - Tricuspid valve: Mild regurgitation. If LV function is below 40, please consider prescribing an ACEI or ARB or document rationale for non-use. PROCEDURE DATA STUDY STATUS: Elective. Procedure: Transthoracic echocardiography. Image quality was good. Scanning was performed from the parasternal, apical, and subcostal acoustic windows. Study completion: The patient tolerated the procedure well. Transthoracic echocardiography. M-mode, complete 2D, complete spectral Doppler, and color Doppler. Patient status: Inpatient. CARDIAC ANATOMY LEFT VENTRICLE: The cavity size was normal. Wall thickness was normal. Systolic function was normal. The estimated ejection fraction was in the range of 55% to 60%. Wall motion was normal; there were no regional wall motion abnormalities. AORTIC VALVE: Trileaflet; normal thickness leaflets. Doppler: Transvalvular velocity was within the normal range. There was no stenosis. No regurgitation. AORTA: Aortic root: The aortic root was normal in size. MITRAL VALVE: Structurally normal valve. Doppler: Transvalvular velocity was within the normal range. There was no evidence for stenosis. No regurgitation. Peak gradient: 2mm Hg (D). LEFT ATRIUM: The atrium was normal in size. RIGHT VENTRICLE: The cavity size was normal. Wall thickness was normal. PULMONIC VALVE: Doppler: Transvalvular velocity was within the normal range. There was no evidence for stenosis. No regurgitation. TRICUSPID VALVE: Structurally normal valve. Doppler: Transvalvular velocity was within the normal range. Mild regurgitation. PULMONARY ARTERY: The main pulmonary artery was normal-sized. Systolic pressure was within the normal range. RIGHT ATRIUM: The atrium was normal in size. PERICARDIUM: There was no pericardial effusion. SYSTEMIC VEINS: Inferior vena cava: The vessel was normal in size. BASIC MEASUREMENTS ADULT Normal Left ventricle LV internal dimension, ED, chordal level, *40.6 mm 43-52 PLAX LV internal dimension, ES, chordal level, 31.2 mm 23-38 PLAX Fractional shortening, chordal level, PLAX *23 % >29 LV posterior wall thickness, ED 6.03 mm IVS/LVPW ratio, ED *1.44 <1.3 Ventricular septum Septal thickness, ED 8.69 mm Left atrium Anterior-posterior dimension 23 mm Right ventricle RV internal dimension, ED, PLAX 19.2 mm 19-38 DOPPLER MEASUREMENTS ADULT Normal Mitral valve Peak E-wave velocity 78.5 cm/s Peak A-wave velocity 86.9 cm/s Peak gradient, D 2 mm Hg Peak E/A ratio 0.9 Tricuspid valve Regurgitant peak velocity 262 cm/s Peak RV-RA gradient, S 27 mm Hg Maximal regurgitant velocity 262 cm/s LEGEND: Mean values are shown as u=mean value. Asterisk (*) vasquez values outside specified normal range. Prepared and signed by Sony Cardoso [id number]
[2017-01-10] MEDS ORDERED: GADODIAMIDE PF 287 MG/ML 5 ML VIAL (for RAD MRI) IV ONE (15:54)
[2017-01-10] MEDS: RESP: ALBUTEROL 2.5 MG/IPRATROPIUM 0.5 MG NEB (SCH) NEB ×2 (16:00→19:52)
[2017-01-10 16:53] LABS: RAPID PLASMA REAGIN SCREEN NON-REACTIVE (NON-REACTVE)
--- NOTE | 2017-01-10 17:05 | RADRPT ---
EXAM DATE/TIME: 01/10/2017 15:20 [place] COMPARISON: CTA BRAIN W 3D RECON, January 09, 2017, 21:11. INDICATIONS : CVA. CONTRAST: 15 cc Omniscan (gadodiamide) IV MEDICAL HISTORY : Chronic obstructive pulmonary disease. Hypertension. Asthma. SURGICAL HISTORY : Fusion, cervical. Intercranial coils. ENCOUNTER: Subsequent ACUITY: 2 day PAIN SCORE: 3/10 LOCATION: cranial TECHNIQUE: Multiplanar, multisequence MRI of the brain was performed both prior to and following the administrat ion of paramagnetic contrast. FINDINGS: CEREBRUM: The ventricles are normal for age. No evidence of midline shift, mass lesion, hemorrhage or acute in farction. No extraaxial fluid collections are seen. The pituitary gland and suprasellar cistern are normal in configuration. WHITE MATTER: There is some scattered areas of increased T2 signal in the white matter most consistent with mild mi crovascular ischemic demyelinative change. No significant signal abnormalities are seen in the white matter. POSTERIOR FOSSA: The cerebellum and brainstem are intact. The 4th ventricle is midline. The cerebellopontine angle is unremarkable. The cerebellar tonsils are normal in position. DIFFUSION IMAGING: No focal areas of restricted diffusion are seen. No evidence of acute infarction. EXTRACRANIAL: The visualized portions of the orbits and paranasal sinuses are unremarkable. POST-CONTRAST: No abnormal areas of parenchymal or dural enhancement. No evidence of blood-brain barrier breakdown. CONCLUSION: 1. Punctate areas of increased T2 signal white matter most consistent with mild microvascular ischemi c demyelinative change. 2. No findings to indicate acute cortical infarction identified. Wilfredo Fitch MD on January 10, 2017 at 16:59 Board Certified Radiologist. This report was verified electronically.
--- NOTE | 2017-01-10 18:33 | MG ---
cc: TERESA MEDINA MD Lab No: Date: 01/10/2017 Age: Sex: M Race: ELECTROENCEPHALOGRAM NUMBER [id number] DATE OF 1950 INDICATION A 66-year-old, there is some history of subarachnoid hemorrhage. Seizure history, headache. Taking DESCRIPTION High frequency beta alpha activity on the posterior channels, 10-30 microvolts. Good driving overall with photic stimulation. Good EEG variability reactivity. Some blink artifact noted. Attenuation background slowing suggestive of drowsy state. Single lead EKG showing sinus rhythm. INTERPRETATION Normal awake drowsy EEG. Clinical correlation. Teresa Medina MD MG/KK /5:28 PM /6:25 PM
[2017-01-10] MEDS: ACETAMINOPHEN/HYDROcodone 325 MG/5 MG TAB PO SCH (20:38)
[2017-01-10] MEDS: clonazePAM 0.5 MG TAB PO SCH (20:39)
[2017-01-10] MEDS: TAMSULOSIN HCL 0.4 MG CAP PO SCH (20:40)
[2017-01-10] MEDS: DONEPEZIL HCL 5 MG TAB PO SCH (20:40)
[2017-01-10] MEDS: PRAVASTATIN SOD 10 MG TAB PO SCH (20:41)
[2017-01-11] VITALS (10 sets, daily range): BP systolic 105–163; BP diastolic 63–83; PULSE 61–65; RESP 18–21; TEMP 96.4–98.7; O2SAT 94–98
[2017-01-11] MEDS: THIAMINE INJ 100 MG in SODIUM CHLORIDE 0.9% INJ 100 ML IV SCH ×2 (01:50→23:39)
[2017-01-11] MEDS: SODIUM CHLOR 0.9% 1000 ML INJ 1,000 ML IV SCH ×3 (01:50→22:21)
--- NOTE | 2017-01-11 07:48 | HHI.PR ---
Subjective Remarks sr Objective Vital Signs Date Time Temp Pulse Resp B/P Pulse Ox O2 Delivery O2 Flow Rate FiO2 01/11/17 07:45 97.2 64 18 133/83 95 01/11/17 05:04 65 01/11/17 04:56 97.5 62 20 127/77 95 01/11/17 00:57 97.1 63 21 105/63 94 01/10/17 20:09 97.0 75 19 110/67 91 01/10/17 16:26 96.9 66 18 111/69 91 01/10/17 11:59 92 Nasal Cannula 21 01/10/17 11:40 96.4 69 18 106/69 90 01/10/17 08:14 95.8 67 18 130/78 94 I/O 01/10/17 01/10/17 01/10/17 01/11/17 01/11/17 01/11/17 07:00 15:00 23:00 07:00 15:00 23:00 Intake Total 240 ml 1431 ml Output Total 600 ml Balance -360 ml 1431 ml Intake Oral 240 ml IV Total 1431 ml Output Urine Total 600 ml # Voids 1 0 0 # Bowel Movements 0 0 Result Diagram: 01/09/17 2100 Other Results mri eeg echo nl labs ok Objective Remarks awake alert no deficit focal Assessment and Plan Assessment and Plan imp he was drinking and may have been just that i added asa 81 to plavix ok dc by me after holter put on no cva Sony Hardin MD Jan 11, 2017 07:48
[2017-01-11] MEDS: RESP: ALBUTEROL 2.5 MG/IPRATROPIUM 0.5 MG NEB (SCH) NEB ×4 (07:52→19:58)
[2017-01-11] MEDS: ASPIRIN EC 81 MG TABEC PO SCH (09:00)
[2017-01-11] MEDS: BUDESONIDE-FORMOTEROL 160/4.5 MCG INHALER INH SCH ×2 (09:00→22:00)
[2017-01-11] MEDS: guaiFENesin E.R. 600 MG TAB PO SCH ×2 (10:00→21:57)
[2017-01-11] MEDS: FLUoxetine HCL 20 MG CAP PO SCH (10:00)
[2017-01-11] MEDS: ACETAMINOPHEN/HYDROcodone 325 MG/5 MG TAB PO SCH ×2 (10:01→18:13)
[2017-01-11] MEDS: CLOPIDOGREL 75 MG TAB PO SCH (10:01)
[2017-01-11] MEDS: FOLIC ACID 1 MG TAB PO SCH (10:01)
[2017-01-11] MEDS: POTASSIUM CHLORIDE 10 MEQ CAP PO SCH (10:01)
[2017-01-11] MEDS: BACLOFEN 10 MG TAB PO SCH ×3 (10:02→18:13)
[2017-01-11] MEDS: FERROUS SULFATE 325 MG (65 MG ELEMENTAL IRON) TAB PO SCH ×2 (10:02→21:58)
[2017-01-11] MEDS: MULTIVITAMINS/MINERALS THERAPEUTIC TAB PO SCH (10:02)
[2017-01-11] MEDS: PANTOPRAZOLE SOD 20 MG DELAYED RELEASE TAB PO SCH (10:02)
[2017-01-11] MEDS: clonazePAM 0.5 MG TAB PO SCH ×2 (10:02→21:58)
[2017-01-11] MEDS: GABAPENTIN 300 MG CAP PO SCH ×3 (10:02→18:12)
[2017-01-11] MEDS: CARBIDOPA/LEVODOPA 25 MG/100 MG TAB PO SCH ×3 (10:02→18:12)
[2017-01-11] MEDS: SODIUM CHLORIDE 0.9% FLUSH 5 ML FLUSH FLUSH SCH ×2 (10:03→22:06)
--- NOTE | 2017-01-11 14:07 | HHI.PR ---
Subjective Remarks sitting up in chair no paresthesias no headache no acute changes overnight admits to ETOH use, 2 glasses of wine Objective Objective Results - Vital Signs Date Time Temp Pulse Resp B/P Pulse Ox O2 Delivery O2 Flow Rate FiO2 01/11/17 12:11 96.8 64 20 163/79 98 01/11/17 11:01 15 01/11/17 08:00 65 01/11/17 07:53 95 Nasal Cannula 2.00 01/11/17 07:45 97.2 64 18 133/83 95 01/11/17 05:04 65 01/11/17 04:56 97.5 62 20 127/77 95 01/11/17 00:57 97.1 63 21 105/63 94 01/10/17 20:09 97.0 75 19 110/67 91 01/10/17 16:26 96.9 66 18 111/69 91 I/O 01/10/17 01/10/17 01/10/17 01/11/17 01/11/17 01/11/17 07:00 15:00 23:00 07:00 15:00 23:00 Intake Total 240 ml 1431 ml Output Total 600 ml Balance -360 ml 1431 ml Intake Oral 240 ml IV Total 1431 ml Output Urine Total 600 ml # Voids 1 0 0 # Bowel Movements 0 0 Result Diagram: 01/09/17 2100 Imaging Last Impressions Neck CTA 01/09/17 0000 Signed Impressions: Service Date/Time: Monday, January 09, 2017 21:11 - CONCLUSION: 1. No carotid stenosis or thrombus. Constantine Howard MD Head CTA 01/09/17 0000 Signed Impressions: Service Date/Time: Monday, January 09, 2017 21:11 - CONCLUSION: 1. Stent within the distal right internal carotid artery and adjacent coils. No residual aneurysm seen. 2. No thrombus or stenosis. Constantine Howard MD Head CT 01/09/17 0000 Signed Impressions: Service Date/Time: Monday, January 09, 2017 21:11 - CONCLUSION: 1. Questionable left cerebellar infarct. 2. Status post coiling in the right suprasellar cistern/distal internal carotid artery. Constantine Howard MD ROS General: Weakness, Other (poor historian ) Pulmonary: Wheezing Physical Exam Physical Exam GENERAL: This is a well-nourished, well-developed patient, in no apparent distress. SKIN: No rashes, ecchymoses or lesions. Cool and dry. HEAD: Atraumatic. Normocephalic. No temporal or scalp tenderness. EYES: Pupils equal round and reactive. Extraocular motions intact. No scleral icterus. No injection or drainage. ENT: Nose without bleeding, purulent drainage or septal hematoma. Throat without erythema, tonsillar hypertrophy or exudate. Uvula midline. Airway patent. NECK: Trachea midline. No JVD or lymphadenopathy. Supple, nontender, no meningeal signs. CARDIOVASCULAR: Regular rate and rhythm without murmurs, gallops, or rubs. RESPIRATORY: Diminished, poor inspiratory effort, diffuse expiratory wheezing. GASTROINTESTINAL: Abdomen soft, non-tender, nondistended. No hepato-splenomegaly , or palpable masses. No guarding. MUSCULOSKELETAL: Extremities without clubbing, cyanosis, or edema. No joint tenderness, effusion, or edema noted. No calf tenderness. Negative Homans sign bilaterally. NEUROLOGICAL: Awake, alert oriented 3, slow to respond. Poor historian. Following commands. He is noted with mild tremors to upper extremities. Slight weakness noted lower extremities left greater than right chronic Urinary Catheter: No Vascular Central Line Catheter: No A/P Diagnosis: (1) Cephalalgia (2) History of subarachnoid hemorrhage (3) COPD (chronic obstructive pulmonary disease) (4) Dementia (5) Parkinsons (6) HLD (hyperlipidemia) (7) HTN (hypertension) (8) Anxiety Assessment and Plan 66-year-old male patient with history of brain aneurysm, seizure after subarachnoid hemorrhage 3 years ago for which he had stent placed intracranially , chronic back and neck pain secondary to cervical spine laminectomy. Patient presented with right frontal headache associated with photophobia, nausea, no vomiting. There was also reported slurred speech. Patient presented initially to stroke alert, however symptoms appear to be chronic and not new. CT showed possible cerebellar infarct. Admitted for possible CVA versus migraine, also with elevated blood alcohol level. Neuro changes poss. sec. ETOH use. -work up negative -Echo EF 55-60% Head of bed down -DC IVF Neurology input appreciated, added ASA to Plavix PT, OT and speech therapy -EEG neg -Seizure precautions -Continue with thiamine -counselled about ETOH use -Holter ordered, has in place. Positive alcohol use -CIWA protocol -Continue with Thiamine -counseling done Chronic back and neck pain, history of cervical laminectomy Continue with [place] twice a day for pain COPD, continues to smoke Tobacco abuse counseling completed Duo nebs when necessary for wheezing Hypertension, actually blood pressure is running 100s to 130s stable, resume home meds tomorrow Hyperlipidemia Lipid profile results noted -continue statins SCDs for DVT prophylaxis Protonix for GI prophylaxis CM for HHC/PT Poss dc today F/U PCP F/U Dr. Hardin 2 weeks Diet -heart healthy, needs to stop drinking Activity-as tolerated. D/W RN D/W Dr. Carey D/W pt D/W CM This patient was seen by myself and Dr. Carey, this note is written on his behalf Problem Qualifiers (1) Cephalalgia: (2) COPD (chronic obstructive pulmonary disease): Qualified Code: J44.9 - Chronic obstructive pulmonary disease, unspecified COPD type (3) Dementia: Qualified Code: F03.90 - Dementia without behavioral disturbance, unspecified dementia type (4) HLD (hyperlipidemia): Qualified Code: E78.5 - Hyperlipidemia, unspecified hyperlipidemia type (5) HTN (hypertension): Qualified Code: I10 - Essential hypertension Zaida Shrestha Jan 11, 2017 14:07
[2017-01-11] MEDS ORDERED: ASPI81TA11 PO (15:00)
--- NOTE | 2017-01-11 15:14 | HHI.FF ---
Face to Face Verification Diagnosis: (1) History of subarachnoid hemorrhage (2) Parkinsons (3) Cephalalgia (4) ETOH abuse Physical Therapy Order: Evaluate and Treat Home Health Nursing Order: Medical education Nursing assessment with vital signs I have seen patient Tucker Campbell on 01/11/17. My clinical findings support the need for the requested home health care services because: Deconditioned w/ increased weakness Need for psychosocial assistance Impaired cognition/judgement I certify that my clinical findings support that this patient is homebound because: Impaired cognitive ability/safety Need for psychosocial assistance Zaida Shrestha Jan 11, 2017 15:14
--- NOTE | 2017-01-11 15:24 | HHI.DCPOC ---
Discharge Care Plan Diagnosis: (1) Dementia (2) Cephalalgia (3) HTN (hypertension) (4) HLD (hyperlipidemia) (5) Parkinsons (6) History of subarachnoid hemorrhage (7) ETOH abuse Your Health Problems Are: Anxiety Difficulty with ADL Goals to Promote Your Health * To prevent worsening of your condition and complications * To maintain your health at the optimal level Directions to Meet Your Goals Take your medications as prescribed Follow your dietary instruction Follow activity as directed Keep your appointments as scheduled Take your immunizations and boosters as scheduled If your symptoms worsen call your PCP, if no PCP go to Urgent Care Center or Emergency Room Smoking is Dangerous to Your Health. Avoid second hand smoke Call the 24-hour hour crisis hotline for domestic abuse at Zaida Shrestha Jan 11, 2017 15:24
[2017-01-11] MEDS: PRAVASTATIN SOD 10 MG TAB PO SCH (21:57)
[2017-01-11] MEDS: DONEPEZIL HCL 5 MG TAB PO SCH (21:58)
[2017-01-11] MEDS: TAMSULOSIN HCL 0.4 MG CAP PO SCH (21:58)
[2017-01-12] VITALS: BP 142/85; PULSE 63; RESP 20; TEMP 97.6; O2SAT 98
[2017-01-12] MEDS ORDERED: ACETAMINOPHEN/HYDROcodone 325 MG/5 MG TAB PO ONE
[2017-01-12 04:00] VITALS: BP 158/88; PULSE 57; RESP 20; TEMP 96.2; O2SAT 92
--- NOTE | 2017-01-12 07:58 | HHI.PR ---
Subjective Remarks sr Objective Vital Signs Date Time Temp Pulse Resp B/P Pulse Ox O2 Delivery O2 Flow Rate FiO2 01/12/17 04:00 96.2 57 20 158/88 92 01/12/17 00:39 18 01/12/17 00:00 97.6 63 20 142/85 98 01/11/17 20:01 94 21 01/11/17 20:00 98.7 61 20 141/75 94 01/11/17 20:00 98.7 61 20 141/75 94 01/11/17 16:08 96.4 61 20 163/82 95 01/11/17 12:11 96.8 64 20 163/79 98 01/11/17 11:01 15 01/11/17 08:00 65 I/O 01/11/17 01/11/17 01/11/17 01/12/17 01/12/17 01/12/17 07:00 15:00 23:00 07:00 15:00 23:00 Intake Total 120 ml 450 ml 450 ml Balance 120 ml 450 ml 450 ml Intake Oral 120 ml 450 ml 450 ml # Voids 0 2 1 1 # Bowel Movements 1 Result Diagram: 01/09/17 2100 Objective Remarks awake alert no deficit focal up walks with walker Assessment and Plan Assessment and Plan imp he was drinking and may have been just that i added asa 81 to plavix ok dc by me after holter put on no cva as above stable Sony Hardin MD Jan 12, 2017 07:58
[2017-01-12 08:11] VITALS: BP 160/93; PULSE 62; RESP 18; TEMP 97.1; O2SAT 93
[2017-01-12] MEDS: RESP: ALBUTEROL 2.5 MG/IPRATROPIUM 0.5 MG NEB (SCH) NEB ×2 (08:15→11:33)
[2017-01-12 08:16] VITALS: O2SAT 94
[2017-01-12] MEDS: BUDESONIDE-FORMOTEROL 160/4.5 MCG INHALER INH SCH (09:00)
[2017-01-12] MEDS: SODIUM CHLORIDE 0.9% FLUSH 5 ML FLUSH FLUSH SCH (09:37)
[2017-01-12] MEDS: ASPIRIN EC 81 MG TABEC PO SCH (09:39)
[2017-01-12] MEDS: POTASSIUM CHLORIDE 10 MEQ CAP PO SCH (09:39)
[2017-01-12] MEDS: guaiFENesin E.R. 600 MG TAB PO SCH (09:39)
[2017-01-12] MEDS: ACETAMINOPHEN/HYDROcodone 325 MG/5 MG TAB PO SCH (09:39)
[2017-01-12] MEDS: GABAPENTIN 300 MG CAP PO SCH (09:39)
[2017-01-12] MEDS: CLOPIDOGREL 75 MG TAB PO SCH (09:40)
[2017-01-12] MEDS: BACLOFEN 10 MG TAB PO SCH (09:40)
[2017-01-12] MEDS: PANTOPRAZOLE SOD 20 MG DELAYED RELEASE TAB PO SCH (09:40)
[2017-01-12] MEDS: FLUoxetine HCL 20 MG CAP PO SCH (09:40)
[2017-01-12] MEDS: CARBIDOPA/LEVODOPA 25 MG/100 MG TAB PO SCH (09:40)
[2017-01-12] MEDS: MULTIVITAMINS/MINERALS THERAPEUTIC TAB PO SCH (09:40)
[2017-01-12] MEDS: FOLIC ACID 1 MG TAB PO SCH (09:40)
[2017-01-12] MEDS: FERROUS SULFATE 325 MG (65 MG ELEMENTAL IRON) TAB PO SCH (09:40)
[2017-01-12] MEDS: clonazePAM 0.5 MG TAB PO SCH (09:41)
--- NOTE | 2017-01-12 10:34 | HHI.PR ---
Subjective Remarks sitting up in chair no paresthesias no headache no acute neuro changes pleasant, admits to drinking, will try to cut down Objective Objective Results - Vital Signs Date Time Temp Pulse Resp B/P Pulse Ox O2 Delivery O2 Flow Rate FiO2 01/12/17 08:16 94 21 01/12/17 08:11 97.1 62 18 160/93 93 01/12/17 04:00 96.2 57 20 158/88 92 01/12/17 00:39 18 01/12/17 00:00 97.6 63 20 142/85 98 01/11/17 20:01 94 21 01/11/17 20:00 98.7 61 20 141/75 94 01/11/17 20:00 98.7 61 20 141/75 94 01/11/17 16:08 96.4 61 20 163/82 95 01/11/17 12:11 96.8 64 20 163/79 98 01/11/17 11:01 15 I/O 01/11/17 01/11/17 01/11/17 01/12/17 01/12/17 01/12/17 07:00 15:00 23:00 07:00 15:00 23:00 Intake Total 120 ml 450 ml 450 ml Balance 120 ml 450 ml 450 ml Intake Oral 120 ml 450 ml 450 ml # Voids 0 2 1 1 # Bowel Movements 1 Result Diagram: 01/09/17 2100 Imaging Last Impressions Neck CTA 01/09/17 0000 Signed Impressions: Service Date/Time: Monday, January 09, 2017 21:11 - CONCLUSION: 1. No carotid stenosis or thrombus. Constantine Howard MD Head CTA 01/09/17 0000 Signed Impressions: Service Date/Time: Monday, January 09, 2017 21:11 - CONCLUSION: 1. Stent within the distal right internal carotid artery and adjacent coils. No residual aneurysm seen. 2. No thrombus or stenosis. Constantine Howard MD Head CT 01/09/17 0000 Signed Impressions: Service Date/Time: Monday, January 09, 2017 21:11 - CONCLUSION: 1. Questionable left cerebellar infarct. 2. Status post coiling in the right suprasellar cistern/distal internal carotid artery. Constantine Howard MD ROS General: Other (tremors, no headache) Pulmonary: Wheezing Physical Exam Physical Exam GENERAL: This is a well-nourished, well-developed patient, in no apparent distress. SKIN: No rashes, ecchymoses or lesions. Cool and dry. HEAD: Atraumatic. Normocephalic. No temporal or scalp tenderness. EYES: Pupils equal round and reactive. Extraocular motions intact. No scleral icterus. No injection or drainage. ENT: Nose without bleeding, purulent drainage or septal hematoma. Throat without erythema, tonsillar hypertrophy or exudate. Uvula midline. Airway patent. NECK: Trachea midline. No JVD or lymphadenopathy. Supple, nontender, no meningeal signs. CARDIOVASCULAR: Regular rate and rhythm without murmurs, gallops, or rubs. RESPIRATORY: Diminished, poor inspiratory effort, faint wheezing. GASTROINTESTINAL: Abdomen soft, non-tender, nondistended. No hepato-splenomegaly , or palpable masses. No guarding. MUSCULOSKELETAL: Extremities without clubbing, cyanosis, or edema. No joint tenderness, effusion, or edema noted. No calf tenderness. Negative Homans sign bilaterally. NEUROLOGICAL: Awake, alert oriented 3, slow to respond. Poor historian. Following commands. He is noted with mild tremors to upper extremities. Slight weakness noted lower extremities left greater than right chronic Urinary Catheter: No Vascular Central Line Catheter: No A/P Diagnosis: (1) Cephalalgia (2) History of subarachnoid hemorrhage (3) COPD (chronic obstructive pulmonary disease) (4) Dementia (5) Parkinsons (6) HLD (hyperlipidemia) (7) HTN (hypertension) (8) Anxiety Assessment and Plan 66-year-old male patient with history of brain aneurysm, seizure after subarachnoid hemorrhage 3 years ago for which he had stent placed intracranially , chronic back and neck pain secondary to cervical spine laminectomy. Patient presented with right frontal headache associated with photophobia, nausea, no vomiting. There was also reported slurred speech. Patient presented initially to stroke alert, however symptoms appear to be chronic and not new. CT showed possible cerebellar infarct. Admitted for possible CVA versus migraine, also with elevated blood alcohol level. Neuro changes poss. sec. ETOH use. -work up negative -Echo EF 55-60% -Neurology input appreciated, added ASA to Plavix. Cleared for discharge PT, OT and speech therapy -EEG neg -Seizure precautions -Continue with thiamine -counselled about ETOH use -Holter done, results pending, f/u neurology for results and further work up Positive alcohol use -CIWA protocol -Continue with Thiamine -counseling done Chronic back and neck pain, history of cervical laminectomy Continue with [place] twice a day for pain COPD, continues to smoke Tobacco abuse counseling completed Duo nebs when necessary for wheezing Hypertension, actually blood pressure is running 100s to 130s stable, resume home meds tomorrow Hyperlipidemia Lipid profile results noted -continue statins SCDs for DVT prophylaxis Protonix for GI prophylaxis CM for HHC/PT Discharge today to [facility] with HHC F/U PCP F/U Dr. Hardin 2 weeks Diet -heart healthy, needs to stop drinking, doubtful but will try to cut down Activity-as tolerated. D/W RN D/W Dr. Carey D/W pt D/W CM This patient was seen by myself and Dr. Carey, this note is written on his behalf Problem Qualifiers (1) Cephalalgia: (2) COPD (chronic obstructive pulmonary disease): Qualified Code: J44.9 - Chronic obstructive pulmonary disease, unspecified COPD type (3) Dementia: Qualified Code: F03.90 - Dementia without behavioral disturbance, unspecified dementia type (4) HLD (hyperlipidemia): Qualified Code: E78.5 - Hyperlipidemia, unspecified hyperlipidemia type (5) HTN (hypertension): Qualified Code: I10 - Essential hypertension Zaida Shrestha Jan 12, 2017 10:34
[2017-01-12 12:39] VITALS: BP 157/91; PULSE 67; RESP 19; TEMP 97.2; O2SAT 95
[2017-01-13] MEDS ORDERED: THIAMINE HCL 100 MG TAB PO SCH (09:00)
--- NOTE | 2017-01-14 17:56 | HHI.DS ---
Discharge Summary Admission Date Jan 09, 2017 at 22:45 Discharge Date: Jan 12, 2017 Admitting Diagnosis Acute cephalgia h/o SAH; TIA/CVA; COPD (1) Cephalalgia Diagnosis: Principal (2) History of subarachnoid hemorrhage Diagnosis: Secondary (3) COPD (chronic obstructive pulmonary disease) Diagnosis: Principal (4) Dementia Diagnosis: Secondary (5) Parkinsons Diagnosis: Secondary (6) HLD (hyperlipidemia) Diagnosis: Secondary (7) HTN (hypertension) Diagnosis: Secondary (8) Anxiety Diagnosis: Secondary Brief History This was a 66-year-old male patient with history hypertension, bladder cancer on remission, seizure after subarachnoid hemorrhage 3 years ago for which she had stent placed intracranially, brain aneurysms, tobacco abuse, chronic back and neck pain secondary to cervical spine laminectomy. Patient had residual short-term memory and has chronic weakness of legs left greater than right as well as arms. He did use a walker for ambulation. Patient presented to the emergency room via EMS complaining of 1-1/2 hour sudden onset of right frontal orbital headache associated with photophobia and nausea no vomiting. Patient was concerned as this was the type of headache he had when he had the subarachnoid hemorrhage 3 years ago. Patient was on Plavix. Patient was also a resident at assisted living facility for the last year. Neck CTA 01/09/17 0000 Signed Impressions: Service Date/Time: Monday, January 09, 2017 21:11 - CONCLUSION: 1. No carotid stenosis or thrombus. Constantine Howard MD Head CTA 01/09/17 0000 Signed Impressions: Service Date/Time: Monday, January 09, 2017 21:11 - CONCLUSION: 1. Stent within the distal right internal carotid artery and adjacent coils. No residual aneurysm seen. 2. No thrombus or stenosis. Constantine Howard MD Head CT 01/09/17 0000 Signed Impressions: Service Date/Time: Monday, January 09, 2017 21:11 - CONCLUSION: 1. Questionable left cerebellar infarct. 2. Status post coiling in the right suprasellar cistern/distal internal carotid artery. Constantine Howard MD Patient has been evaluated per neurology, neurology workup is in progress. At this time patient indicates headache is relieved. He is slow to respond, and has occasional trouble with more finding which is not new. He is a poor historian, endorses short-term memory loss. He does have some mild tremors to upper extremities for which he is on Sinemet. Patient denies alcohol abuse, however his ethyl alcohol level was 162. Patient is admitted for further evaluation and treatment. Imaging Last Impressions Brain MRI 01/10/17 0803 Signed Impressions: Service Date/Time: Tuesday, January 10, 2017 15:20 - CONCLUSION: 1. Punctate areas of increased T2 signal white matter most consistent with mild microvascular ischemic demyelinative change. 2. No findings to indicate acute cortical infarction identified. Wilfredo Fitch MD Neck CTA 01/09/17 0000 Signed Impressions: Service Date/Time: Monday, January 09, 2017 21:11 - CONCLUSION: 1. No carotid stenosis or thrombus. Constantine Howard MD Head CTA 01/09/17 0000 Signed Impressions: Service Date/Time: Monday, January 09, 2017 21:11 - CONCLUSION: 1. Stent within the distal right internal carotid artery and adjacent coils. No residual aneurysm seen. 2. No thrombus or stenosis. Constantine Howard MD Head CT 01/09/17 Signed Impressions: Service Date/Time: Monday, January 09, 2017 21:11 - CONCLUSION: 1. Questionable left cerebellar infarct. 2. Status post coiling in the right suprasellar cistern/distal internal carotid artery. Constantine Howard MD PE at Discharge GENERAL: This was a well-nourished, well-developed patient, in no apparent distress. SKIN: No rashes, ecchymoses or lesions. Cool and dry. HEAD: Atraumatic. Normocephalic. No temporal or scalp tenderness. EYES: Pupils equal round and reactive. Extraocular motions intact. No scleral icterus. No injection or drainage. ENT: Nose without bleeding, purulent drainage or septal hematoma. Throat without erythema, tonsillar hypertrophy or exudate. Uvula midline. Airway patent. NECK: Trachea midline. No JVD or lymphadenopathy. Supple, nontender, no meningeal signs. CARDIOVASCULAR: Regular rate and rhythm without murmurs, gallops, or rubs. RESPIRATORY: Diminished, poor inspiratory effort, faint wheezing. GASTROINTESTINAL: Abdomen soft, non-tender, nondistended. No hepato-splenomegaly , or palpable masses. No guarding. MUSCULOSKELETAL: Extremities without clubbing, cyanosis, or edema. No joint tenderness, effusion, or edema noted. No calf tenderness. Negative Homans sign bilaterally. NEUROLOGICAL: Awake, alert oriented 3, slow to respond. Poor historian. Following commands. He is noted with mild tremors to upper extremities. Slight weakness noted lower extremities left greater than right chronic Hospital Course In the ED, Patient presented as a stroke alert. Initially he was thought to have a left lateral visual cut defect but this was noted to be old. He was also noted with some mild slurred speech. NIH stroke scale was 4. A CT of the head was completed that was suggestive of possible old left cerebellar infarct. CTA was negative. Head CTA shows stent within the right distal internal carotid artery and adjacent coils. No residual aneurysms were seen. No thrombus or stenosis. Neurology was contacted from the emergency room. No TPA was given. After being admitted to the hospital these are the diagnoses that were used to treat patient and plan of care. (1) Cephalalgia (2) History of subarachnoid hemorrhage (3) COPD (chronic obstructive pulmonary disease) (4) Dementia (5) Parkinsons (6) HLD (hyperlipidemia) (7) HTN (hypertension) (8) Anxiety 66-year-old male patient with history of brain aneurysm, seizure after subarachnoid hemorrhage 3 years ago for which he had stent placed intracranially , chronic back and neck pain secondary to cervical spine laminectomy. Patient presented with right frontal headache associated with photophobia, nausea, no vomiting. There was also reported slurred speech. Patient presented initially to stroke alert, however symptoms appear to be chronic and not new. CT showed possible cerebellar infarct. Admitted for possible CVA versus migraine, also with elevated blood alcohol level. Neuro changes poss. sec. ETOH use. -work up negative -Echo was done which showed EF 55-60% -Neurology input appreciated, added ASA to Plavix. Cleared for discharge after MRI MRA reviewed PT, OT and speech therapy -EEG was obtained which showed negative results. -Seizure precautions -Continue with thiamine -counselled about ETOH use -Holter done, results pending, f/u neurology for results and further work up Positive alcohol use -CIWA protocol -Continue with Thiamine -counseling done Chronic back and neck pain, history of cervical laminectomy Continue with [place] twice a day for pain COPD, continues to smoke Tobacco abuse counseling completed Duo nebs when necessary for wheezing Hypertension, actually blood pressure is running 100s to 130s stable, resume home meds tomorrow Hyperlipidemia Lipid profile results noted -continue statins SCDs for DVT prophylaxis Protonix for GI prophylaxis Case management assisted with discharge planning. Patient was evaluated and seen date of discharge per ENGINEERING DRAWINGS CHECKER and physician. It was felt that he was safe to discharge today to [facility] with C F/U PCP F/U Dr. Hardin 2 weeks Diet -heart healthy, needs to stop drinking, doubtful but will try to cut down Activity-as tolerated. Pt Condition on Discharge: Stable Discharge Disposition: [facility] with [facility] Discharge Instructions DIET: Follow Instructions for: Heart Healthy Diet Speech Therapy-Diet Recommends: Regular Additional Diet Instructions: do not drink alcohol Activities you can perform: Weight Bearing as Leela Follow up Referrals: Neurology - 3 Weeks PCP Follow-up - 1 Week New Medications: Aspirin DR (Aspirin EC) 81 Mg Tabdr 81 MG PO DAILY blood thinner #30 TAB Continued Medications: Acetaminophen (Acetaminophen) 325 Mg Tab 650 MG PO Q4H PRN PAIN SCALE 3 TO 5 TAB Albuterol 18 GM Inh (Ventolin Hfa 18 GM Inh) 90 Mcg/Act Aer 2 PUFF INH Q4H PRN SHORTNESS OF BREATH #1 Ref 0 INHALER Baclofen (Baclofen) 10 Mg Tab 10 MG PO TID Muscle Spasm Ref 0 TAB Budesonide-Formoterol Inh (Symbicort Inh) 160-4.5 Mcg/Act Aero 1 PUFF INH Q12HR #1 Ref 0 INHALER Carbidopa-Levodopa (Sinemet) 25-100 Mg Tab 1 TAB PO TID Parkinson Disease Mgmt #90 Ref 0 TAB Carvedilol (Carvedilol) 3.125 Mg Tab 3.125 MG PO BID #60 Ref 0 TAB Clonazepam (Clonazepam) 0.5 Mg Tab 0.5 MG PO BID #60 Ref 0 TAB Clopidogrel (Clopidogrel) 75 Mg Tab 75 MG PO DAILY Blood Clot Prevention #30 Ref 0 TAB Dexlansoprazole (Dexilant) 30 Mg Cap 30 MG PO DAILY #30 Ref 0 CAP Dextromethorphan-Guaifenesin (Mucinex DM) 30-600 Mg Tab 1 TAB PO BID PRN CHEST CONGESTION AND/OR COUGH Ref 0 TAB Donepezil (Donepezil) 10 Mg Tab 10 MG PO HS Dementia #30 Ref 0 TAB Ferrous Sulfate (Ferrous Sulfate) 325 Mg Tab 325 MG PO BID Nutritional Supplement #30 Ref 0 TAB Fluoxetine (Fluoxetine) 40 Mg Cap 40 CAP PO DAILY #30 Ref 0 CAP Furosemide (Lasix) 40 Mg Tab 40 MG PO DAILY #30 Ref 0 TAB Gabapentin (Gabapentin) 600 Mg Tab 600 MG PO TID #90 Ref 0 TAB Hydrocodone-Acetaminophen ([place]) 5-325 mg Tab 1 TAB PO BID PAIN Ref 0 TAB Lovastatin (Lovastatin) 10 Mg Tab 10 MG PO HS Cholesterol Management #30 Ref 0 TAB Meloxicam (Meloxicam) 15 Mg Tab 15 MG PO DAILY Arthritis Pain #30 Ref 0 TAB Multiple Vitamin (Multi Vitamin) 1 Tab Tab 1 TAB PO DAILY TAB Potassium Chloride ER (Potassium Chloride ER) 10 Meq Cap 10 MEQ PO DAILY Electrolyte Replacement #30 Ref 0 CAP Tamsulosin (Tamsulosin) 0.4 Mg Cap 0.4 MG PO HS Manage Prostate Problems #30 Ref 0 CAP Discontinued Medications: Guaifenesin ER 12 HR (Mucinex ER 12 HR) 600 Mg Tasha 600 MG PO BID Chest Congestion/Cough Ref 0 TAB Alexandria Laboy Jan 14, 2017 17:56
== END 2017-01-12 14:19 ==
LOC: NEPC 20:58 → NEDA 22:45 → INTOOBSV 22:45 → N05A 01-10 01:12
PROVIDERS: ADMIT Specialist; ATTEND Specialist
DX: R51 Headache (principal); G20 Parkinson's disease; I10 Essential (primary) hypertension; E78.5 Hyperlipidemia, unspecified; J44.9 Chronic obstructive pulmonary disease, unspecified; F03.90 Unspecified dementia, unspecified severity, without behavioral disturbance, psychotic disturbance, mood disturbance, and anxiety; F41.9 Anxiety disorder, unspecified; G89.29 Other chronic pain; M54.9 Dorsalgia, unspecified; N40.0 Benign prostatic hyperplasia without lower urinary tract symptoms; F17.200 Nicotine dependence, unspecified, uncomplicated; F32.9 Major depressive disorder, single episode, unspecified; E78.00 Pure hypercholesterolemia, unspecified; Z85.51 Personal history of malignant neoplasm of bladder; Z86.69 Personal history of other diseases of the nervous system and sense organs; Z98.1 Arthrodesis status; Z79.02 Long term (current) use of antithrombotics/antiplatelets; Z79.51 Long term (current) use of inhaled steroids; Z79.899 Other long term (current) drug therapy; R94.31 Abnormal electrocardiogram [ECG] [EKG]
CPT/HCPCS: 70450; 70496; 70498; 70553; 80061; 80307; 81001; 82435; 82550; 82565; 82607; 82947; 83735; 84132; 84295; 84425; 84439; 84443; 84484; 84520; 85025; 85384; 85610; 85652; 85730; 86038; 86592; 86850; 86900; 86901; 92526; 92610; 93005; 93306; 94640; 94664; 95819; 96361; 96374; 96375; 97162; 97167; 99291; A9579; G0378; G8987; G8988; G8989; J2060; J2270; J2405; J3411; J7030; Q9967

== ENCOUNTER 2017-04-09 21:03 | Inpatient (IN) | payer MEDICARE, MEDICAID ==
[~2017-04-09] VITALS: Ht 170.2 cm; Wt 76.0 kg
[~2017-04-09 21:03] MED LIST changes: +ASPI81TA11 PO; +FURO1TAB60 PO; +MELO-1 PO; -MUCI600T PO; +POTA10CA PO; -PRED10PA2 PO
[2017-04-09 21:10] VITALS: BP 113/69; PULSE 92; RESP 26; TEMP 99; O2SAT 96
[2017-04-09 21:13] VITALS: BP 113/69; PULSE 105; RESP 14; O2SAT 97
[2017-04-09] MEDS ORDERED: SODIUM CHLORIDE 0.9% FLUSH 10 ML FLUSH IVF PRN (21:15)
[2017-04-09] MEDS ORDERED: methylPREDNISolone SOD SUCC 125 MG/2 ML VIAL IVP ONE (21:15)
--- NOTE | 2017-04-09 21:20 | PD ---
HPI Chief Complaint: Respiratory Symptoms Time Seen by Provider: 21:12 Travel History International Travel<30 days: No Contact w/Intl Traveler<30days: No Traveled to known affect area: No History of Present Illness HPI Patient is a 66-year-old with history of COPD still smoking, bladder cancer who presents emergency Department with shortness of breath. Patient had bladder cancer status post cystoscopy/turbt by Dr. Isabel. States that he is supposed to follow up in [facility] a 4-6 months, but at this time he believes he is cancer free. Patient has not been doing his breathing treatments at home "just because". He has them, but is simply noncompliant. He notes that for the last 1-2 hours he's had increasing shortness of breath, cough, chest congestion. No fevers or chills. Patient also notes that he's been unable to urinate throughout the day today. He has not had any burning, dysuria, hematuria. He' s had 5 cups of coffee, 3 glasses of soda and 3 glasses of water throughout the day and has not been able to urinate. Notes associated suprapubic pressure and the urge to urinate but cannot. PFSH Past Medical History Hx Anticoagulant Therapy: Yes Asthma: No Autoimmune Disease: No Blood Disorders: No Anxiety: Yes Depression: Yes Heart Rhythm Problems: Yes (Palpitations) Cancer: Yes (bladder) Cardiovascular Problems: Yes (carotid stents) High Cholesterol: Yes Chemotherapy: No Chest Pain: No COPD: Yes Cerebrovascular Accident: Yes Dementia: Yes Diabetes: No Diminished Hearing: No Diverticulitis: Yes Endocrine: No Genitourinary: Yes Hepatitis: No Hiatal Hernia: No Hypertension: Yes Immune Disorder: No Insomnia: Yes Musculoskeletal: Yes (Neck) Neurologic: Yes (Parkinsons) Parkinson's Disease: Yes Psychiatric: Yes Reproductive: No Respiratory: Yes Immunizations Current: Yes Radiation Therapy: No Seizures: Yes (WHEN HAD SUARACHNOID HEMORRHAGE) Sleep Apnea: No Thyroid Disease: No Past Surgical History Abdominal Surgery: No Cardiac Surgery: No Ear Surgery: No Endocrine Surgery: No Eye Surgery: No Genitourinary Surgery: No Neurologic Surgery: Yes (STENT IN SUBARACHNOID ARTERY) Oral Surgery: No Thoracic Surgery: Yes (BACK, CERVICLE FUSION, LAMENECTOMY) Social History Alcohol Use: Yes (several times per week) Tobacco Use: Yes (1ppd) Substance Use: No Allergies-Medications (Allergen,Severity, Reaction): Coded Allergies: No Known Allergies (Unverified , 04/09/17) Reported Meds & Prescriptions Reported Meds & Active Scripts Active Aspirin EC (Aspirin) 81 Mg Tabdr 81 Mg PO DAILY Oxygen tank (Oxygen) 1 Ea Tank 2 Liter [place]ER[place].CANULA CONTINUOUS Oxygen Concentrator Portable Gaseous 2 L/min via Nasal Cannula Continuous For 99 months Reported Ventolin Hfa 18 GM Inh (Albuterol Sulfate) 90 Mcg/Act Aer 2 Puff INH Q4-6H PRN Tramadol (Tramadol HCl) 50 Mg Tab 50 Mg PO Q6H PRN Trazodone (Trazodone HCl) 50 Mg Tab 50 Mg PO HS Buspirone (Buspirone HCl) 10 Mg Tab 10 Mg PO TID Symbicort Inh (Budesonide/Formoterol Fumarate) 160-4.5 Mcg/Act Aero 1 Puff INH Q12HR Feosol (Ferrous Sulfate) 200 Mg Tab 325 Mg PO DAILY Multiple Vitamin 1 Tab 1 Tab PO DAILY Meloxicam 15 Mg Tab 15 Mg PO DAILY Potassium Chloride ER (Potassium Chloride) 10 Meq Cap 10 Meq PO DAILY Lasix (Furosemide) 40 Mg Tab 40 Mg PO DAILY Gabapentin 600 Mg Tab 600 Mg PO TID Tamsulosin (Tamsulosin HCl) 0.4 Mg Cap 0.4 Mg PO HS Lovastatin 10 Mg Tab 10 Mg PO HS Donepezil 10 Mg Tab 10 Mg PO HS Sinemet (Carbidopa-Levodopa) 25-100 Mg Tab 1 Tab PO TID Clonazepam 0.5 Mg Tab 0.5 Mg PO BID Carvedilol 3.125 Mg Tab 3.125 Mg PO BID Fluoxetine (Fluoxetine HCl) 40 Mg Cap 40 Cap PO DAILY Clopidogrel (Clopidogrel Bisulfate) 75 Mg Tab 75 Mg PO DAILY Ventolin Hfa 18 GM Inh (Albuterol Sulfate) 90 Mcg/Act Aer 2 Puff INH Q4H PRN Review of Systems Except as stated in HPI: all other systems reviewed are Neg Physical Exam Narrative GENERAL: Well-appearing male appearing older than stated age smelling heavily of tobacco in moderate respiratory distress SKIN: Focused skin assessment warm/dry. HEAD: Normocephalic. EYES: No scleral icterus. No injection or drainage. ENT: Mucous membranes pink and moist. NECK: Supple CARDIOVASCULAR: Borderline tachycardia with heart rate in the 90s to 100s, regular rhythm. No murmur appreciated. RESPIRATORY: Mild to moderate respiratory distress with tachypnea wrist respiratory rate in the mid 20s, increased work of breathing with pursed lips, diffuse expiratory wheezing GASTROINTESTINAL: Abdomen soft, suprapubic tenderness to palpation without rebound or guarding MUSCULOSKELETAL: No obvious deformities. No edema. NEUROLOGICAL: Awake and alert. Normal speech. PSYCHIATRIC: Appropriate mood and affect; insight and judgment normal. Data Data Last Documented VS Vital Signs Date Time Temp Pulse Resp B/P Pulse Ox O2 Delivery O2 Flow Rate FiO2 04/09/17 21:30 96 Nasal Cannula 3.00 04/09/17 21:13 93 26 04/09/17 21:13 113/69 04/09/17 21:10 99.0 Orders Complete Blood Count With Diff (04/09/17 21:12) Basic Metabolic Panel (Bmp) (04/09/17 21:12) D-Dimer (04/09/17 21:12) Troponin I (04/09/17 21:12) Urinalysis - C+S If Indicated (04/09/17 21:12) Iv Access Insert/Monitor (04/09/17 21:12) Electrocardiogram (04/09/17 21:12) Ecg Monitoring (04/09/17 21:12) Oximetry (04/09/17 21:12) Chest, Single Ap (04/09/17 21:12) Sodium Chloride 0.9% Flush (Ns Flush) (04/09/17 21:15) Methylprednisolone So Succ Inj (Solumedr (04/09/17 21:15) Albuterol-Ipratropium Neb (Duoneb Neb) (04/09/17 21:15) Urinary Catheter Insert/Apply (04/09/17 21:12) Lorazepam Inj (Ativan Inj) (04/09/17 22:00) Arterial Blood Gas (Abg) (04/09/17 21:49) Resp Bipap / Cpap Non Invas Vt (04/09/17 21:49) Ct Pulmonary Angiogram (04/09/17 21:58) Cefepime Inj (Maxipime Inj) (04/09/17 22:24) Azithromycin Inj (Zithromax Inj) (04/09/17 22:24) Iohexol 350 Inj (Omnipaque 350 Inj) (04/09/17 22:34) Labs Laboratory Tests Test 04/09/17 04/09/17 04/09/17 21:15 21:49 22:04 White Blood Count 5.9 TH/MM3 Red Blood Count 4.64 MIL/MM3 Hemoglobin 15.4 GM/DL Hematocrit 45.2 % Mean Corpuscular Volume 97.6 FL Mean Corpuscular Hemoglobin 33.2 PG Mean Corpuscular Hemoglobin 34.1 % Concent Red Cell Distribution Width 14.3 % Platelet Count 249 TH/MM3 Mean Platelet Volume 8.5 FL Neutrophils (%) (Auto) 57.5 % Lymphocytes (%) (Auto) 30.2 % Monocytes (%) (Auto) 11.1 % Eosinophils (%) (Auto) 0.8 % Basophils (%) (Auto) 0.4 % Neutrophils # (Auto) 3.4 TH/MM3 Lymphocytes # (Auto) 1.8 TH/MM3 Monocytes # (Auto) 0.7 TH/MM3 Eosinophils # (Auto) 0.0 TH/MM3 Basophils # (Auto) 0.0 TH/MM3 CBC Comment DIFF FINAL Differential Comment D-Dimer Quantitative (PE/DVT) 0.51 MG/L FEU Sodium Level 137 MEQ/L Potassium Level 3.5 MEQ/L Chloride Level 100 MEQ/L Carbon Dioxide Level 25.1 MEQ/L Anion Gap 12 MEQ/L Blood Urea Nitrogen 8 MG/DL Creatinine 0.81 MG/DL Estimat Glomerular Filtration 95 ML/MIN Rate Random Glucose 79 MG/DL Calcium Level 8.7 MG/DL Troponin I LESS THAN 0.02 NG/ML Urine Color YELLOW Urine Turbidity CLEAR Urine pH 5.5 Urine Specific [place] 1.007 Urine Protein NEG mg/dL Urine Glucose (UA) NEG mg/dL Urine Ketones NEG mg/dL Urine Occult Blood NEG Urine Nitrite NEG Urine Bilirubin NEG Urine Urobilinogen LESS THAN 2.0 MG/DL Urine Leukocyte Esterase NEG Urine RBC LESS THAN 1 /hpf Urine WBC LESS THAN 1 /hpf Urine Squamous Epithelial <1 /hpf Cells Microscopic Urinalysis Comment CULT NOT INDICATED Blood Gas Puncture Site RT RADIAL Blood Gas Patient Temperature 98.6 Blood Gas HCO3 24 mmol/L Blood Gas Base Excess 0.0 mmol/L Blood Gas Oxygen Saturation 93 % Arterial Blood pH 7.43 Arterial Blood Partial 36 mmHg Pressure CO2 Arterial Blood Partial 113 mmHG Pressure O2 Arterial Blood Oxygen Content 19.6 Vol % Arterial Blood 5.4 % Carboxyhemoglobin Arterial Blood Methemoglobin 0.7 % Blood Gas Hemoglobin 15.0 G/DL Oxygen Delivery Device BiPAP Blood Gas Ventilator Setting IPAP12/[id number] Blood Gas Inspired Oxygen 40 % MDM Medical Decision Making Medical Screen Exam Complete: Yes Emergency Medical Condition: Yes Medical Record Reviewed: Yes Differential Diagnosis 66-year-old male with history of COPD still smoking, bladder cancer here with shortness of breath and inability to urinate. With regard to his shortness of breath, differential includes COPD exacerbation, pneumonia, pulmonary embolism, medication nonadherence, arrhythmia, symptomatic anemia, and less likely ACS. With regards to his inability to urinate this is likely obstructive uropathy from enlarged prostate, differential includes UTI, ureterolithiasis. Narrative Course Patient placed on monitor, IV established and blood obtained. Given 125 mg Solu -Medrol and DuoNeb 3. Twelve-lead EKG showed sinus rhythm without notable ST or T-wave abnormalities and normal intervals. Portable chest x-ray obtained that shows mild/early pneumonia in the right midlung. CBC, BMP, d-dimer, troponin, urinalysis notable for d-dimer 0.51. Breathing did not significantly improved with the above treatment and patient was placed on BiPAP. ABG was obtained shortly after patient was placed on BiPAP showing pH 7.43, PCO2 36, PO2 113, bicarbonate 24. Carboxyhemoglobin level elevated at 5.4, consistent with patient's continued tobacco abuse. Patient was treated with cefepime and azithromycin for pneumonia. Patient is adamant that he is DNR and would not want intubation or chest compressions, has his DNR paperwork with him. CT pulmonary angiogram showed showed a right middle lobe infiltrate but no evidence of PE. Patient will be admitted for further management of his COPD exacerbation and concurrent pneumonia. Critical Care Narrative Aggregate critical care time was 55 minutes. Time to perform other separately billable procedures was not included in the critical care time. My time did not include minutes spent treating any other patients simultaneously or on activities that did not directly contribute to the patient's treatment. The services I provided to this patient were to treat and/or prevent clinically significant deterioration that could result in: Cardiopulmonary decompensation, , disability I provided critical care services requiring my management, as noted below: Chart data review, documentation time, medication orders and management, vital sign assessments/reviewing monitor data, ordering and reviewing lab tests, ordering and interpreting/reviewing x-rays and diagnostic studies, care of the patient and discussion of the patient with the admitting physicians. Diagnosis Primary Impression: Pneumonia Qualified Code: J18.1 - Pneumonia of right middle lobe due to infectious organism Additional Impressions: Acute respiratory failure Qualified Code: J96.00 - Acute respiratory failure, unspecified whether with hypoxia or hypercapnia Dyspnea Qualified Code: R06.02 - Shortness of breath Obstructive uropathy COPD (chronic obstructive pulmonary disease) Qualified Code: J44.1 - Chronic obstructive pulmonary disease with acute exacerbation Admitting Information Admitting Physician Requests: it Patt Yang MD Apr 09, 2017 21:20
[2017-04-09 21:30] VITALS: O2SAT 96
[2017-04-09] MEDS: RESP: ALBUTEROL 2.5 MG/IPRATROPIUM 0.5 MG NEB (SCH) INH (21:31)
[2017-04-09] MEDS ORDERED: SYMB160A INH (21:33)
[2017-04-09] MEDS ORDERED: MULTTAB67 PO (21:33)
[2017-04-09] MEDS ORDERED: TRAZ50TA12 PO (21:33)
[2017-04-09] MEDS ORDERED: VENTAER INH (21:33)
[2017-04-09] MEDS ORDERED: BUSP10TA PO (21:33)
[2017-04-09] MEDS ORDERED: TRAM50TA PO (21:33)
[2017-04-09] MEDS ORDERED: FERR200T PO (21:33)
[2017-04-09 21:43] LABS: AUTOMATED NEUTROPHIL # 3.4 TH/MM3 (1.8-7.7); BASOPHIL % 0.4 % (0.0-2.0); EOSINOPHIL % 0.8 % (0.0-4.0); HEMATOCRIT 45.2 % (39.0-51.0); HEMO FLAGS DIFF FINAL; LYMPH % 30.2 % (9.0-44.0); LYMPHOCYTE # 1.8 TH/MM3 (1.0-4.8); MEAN CELL VOLUME 97.6 FL (80.0-100.0); MEAN CORPUSCULAR HEMOGLOBIN 33.2 PG (27.0-34.0); MEAN CORPUSCULAR HGB CONC 34.1 % (32.0-36.0); MONO % 11.1 % (0.0-8.0); NEUT % 57.5 % (16.0-70.0); PLATELET COUNT 249 TH/MM3 (150-450); RED BLOOD COUNT 4.64 MIL/MM3 (4.50-5.90); RED CELL DISTRIBUTION WIDTH 14.3 % (11.6-17.2); WHITE BLOOD COUNT 5.9 TH/MM3 (4.0-11.0)
--- NOTE | 2017-04-09 21:55 | RADRPT ---
EXAM DATE/TIME: 04/09/2017 21:29 [facility] COMPARISON: CHEST SINGLE AP, September 12, 2016, 15:47. INDICATIONS : Shortness of Breath MEDICAL HISTORY : Chronic obstructive pulmonary disease. SURGICAL HISTORY : None. ENCOUNTER: Initial ACUITY: 1 day PAIN SCORE: 0/10 LOCATION: Bilateral chest FINDINGS: Chronic left hemidiaphragm elevation and mild left base atelectasis again noted. On the right, a mild infiltrate is suspected in the mid lung. No effusion seen. No pneumothorax. Heart size stable, within normal limits. CONCLUSION: 1. Early/mild pneumonia suspected in the right midlung. 2. Chronic atelectasis and hemidiaphragm elevation again noted on the left. Kirill Conte MD on April 09, 2017 at 21:51 Board Certified Radiologist. This report was verified electronically.
[2017-04-09 21:59] LABS: ANION GAP 12 MEQ/L (5-15); BICARBONATE 25.1 MEQ/L (21.0-32.0); BLOOD UREA NITROGEN 8 MG/DL (7-18); CHLORIDE 100 MEQ/L (98-107); GLOMERULAR FILTRATION RATE 95 ML/MIN (>89); POTASSIUM 3.5 MEQ/L (3.5-5.1); SODIUM (NA) 137 MEQ/L (136-145)
[2017-04-09 22:00] VITALS: BP 102/59; PULSE 96; O2SAT 98
[2017-04-09] MEDS ORDERED: LORazepam 2 MG/ML VIAL IV PUSH ONE (22:00)
[2017-04-09 22:16] LABS: BLOOD GAS CARBOXYHEMOGLOBIN 5.4 % (0-4); BLOOD GAS HCO3 24 mmol/L (22-26); BLOOD GAS METHEMOGLOBIN 0.7 % (0-2); BLOOD GAS O2 HGB SATURATION 93 % (90-100); BLOOD GAS OXYGEN CONTENT 19.6 Vol % (12.0-20.0); BLOOD GAS PCO2 36 mmHg (38-42); BLOOD GAS PO2 113 mmHG (61-120); CRITICAL VALUE YES; DRAW SITE RT RADIAL; FIO2 40 %; NUMBER OF ARTERIAL PUNCTURES 1; OXYGEN DEVICE BiPAP; STAT YES; TEMP CORR TO 98.6; ULNAR PULSE PRESENT; VENT SETTINGS IPAP12/EPAP5
[2017-04-09] MEDS ORDERED: CEFEPIME INJ 2,000 MG in SODIUM CHLORIDE 0.9% INJ 100 ML IV STA (22:24)
[2017-04-09] MEDS ORDERED: AZITHROMYCIN INJ 500 MG in SODIUM CHLOR 0.9% 250 ML INJ 250 ML IV STA (22:24)
[2017-04-09 22:30] VITALS: O2SAT 98
[2017-04-09] MEDS ORDERED: IOHEXOL 350 MG/ML 10 ML VIAL (for RAD DIAG) IV ONE (22:34)
[2017-04-09 22:44] LABS: BLOOD, URINE NEG (NEG); GLUCOSE,URINE NEG (NEG); KETONE, URINE NEG (NEG); NITRITE,URINE NEG (NEG); PH, URINE 5.5 (5.0-8.5); SQUAMOUS EPITHELIAL CELL URINE <1 /hpf (0-5); URINE COLOR YELLOW (YELLW/STRAW)
[2017-04-09 22:49] LABS: COMMENT (UR) CULT NOT INDICATED; CULTURE IF INDICATED CULT NOT INDICATED
--- NOTE | 2017-04-09 22:53 | RADRPT ---
EXAM DATE/TIME: 04/09/2017 22:31 [facility] COMPARISON: CHEST SINGLE AP, March 20, 2015, 15:58. CHEST SINGLE AP, April 09, 2017, 21:29. INDICATIONS : Dyspnea; rule out pulmonary embolus. IV CONTRAST: 70 cc Omnipaque 350 (iohexol) IV RADIATION DOSE: 13.72 CTDIvol (mGy) MEDICAL HISTORY : Chronic obstructive pulmonary disease. Hypertension. Parkinsons.Cardiac stents, prior SAH SURGICAL HISTORY : None. ENCOUNTER: Initial ACUITY: 1 day PAIN SCALE: 2/10 LOCATION: chest TECHNIQUE: Volumetric scanning of the chest was performed using a pulmonary embolism protocol MIP images were re constructed. Using automated exposure control and adjustment of the mA and/or kV according to patien t size, radiation dose was kept as low as reasonably achievable to obtain optimal diagnostic quality images. FINDINGS: There is no pulmonary embolus. Heart size is normal. There is right and left-sided coronary artery ca lcification. Thoracic aorta is tortuous, non-aneurysmal. Mild infiltrate seen in the right mid lung, mostly posterior segment of the right upper lobe area and there is trace atelectasis at both bases. Chronic elevation of the left hemidiaphragm noted. CONCLUSION: 1. No pulmonary embolus. 2. Mild right upper lobe infiltrate. 3. Mild bibasilar atelectasis. 4. Elevated left hemidiaphragm, at least present since February of 2015 but exact age uncertain and etiolo gy also uncertain. 5. Coronary artery calcification. Kirill Conte MD on April 09, 2017 at 22:45 Board Certified Radiologist. This report was verified electronically.
[2017-04-09 23:00] VITALS: BP 99/61; PULSE 84; RESP 19; O2SAT 96
[2017-04-09] MEDS ORDERED: ONDANSETRON HCL 4 MG/2 ML VIAL IV PRN (23:45)
[2017-04-09] MEDS ORDERED: SODIUM CHLORIDE 0.9% FLUSH 10 ML FLUSH IV FLUSH PRN (23:45)
[2017-04-09] MEDS ORDERED: RESP: ALBUTEROL 2.5 MG/IPRATROPIUM 0.5 MG NEB (PRN) INH (23:45)
[2017-04-09] MEDS ORDERED: ACETAMINOPHEN 325 MG TAB PO PRN (23:45)
[2017-04-10] VITALS (14 sets, daily range): BP systolic 95–140; BP diastolic 58–75; PULSE 65–98; RESP 16–34; TEMP 96.8–98.4; O2SAT 94–99
[2017-04-10] MEDS: ENOXAPARIN SODIUM 40 MG/0.4 ML SYRINGE SQ SCH ×2 (00:10→23:11)
[2017-04-10] MEDS: SODIUM CHLOR 0.9% 1000 ML INJ 1,000 ML IV SCH ×4 (00:32→21:53)
[2017-04-10] MEDS ORDERED: CHLORHEXIDINE GLUCONATE 2 % 1 PACK (2 CLOTHS)(extra cloths) TOPICAL PRN (02:00)
[2017-04-10] MEDS: methylPREDNISolone SOD SUCC 40 MG/1 ML VIAL IV SCH ×4 (03:00→21:50)
[2017-04-10] MEDS: RESP: ALBUTEROL 2.5 MG/IPRATROPIUM 0.5 MG NEB (SCH) INH ×4 (03:34→19:23)
[2017-04-10] MEDS: CHLORHEXIDINE GLUCONATE 2 % 1 PACK (2 CLOTHS)(taper/protocol) TOPICAL SCH (04:00)
--- NOTE | 2017-04-10 06:55 | HHI.HP ---
HPI Service [facility] Primary Care Physician Mal Bey MD (Paul) Admission Diagnosis respiratory failure, pneumonia, COPD exacerbation Diagnoses: Chief Complaint: SOB (Zaida Shrestha) Travel History International Travel<30 Days: No Contact w/Intl Traveler <30 Da: No Traveled to Known Affected Are: No (Zaida Shrestha) History of Present Illness This is a 66-year-old male patient with history hypertension, bladder cancer on remission, seizure after subarachnoid hemorrhage 3 years ago for which he had stent placed intracranially, brain aneurysms, tobacco abuse, chronic back and neck pain secondary to cervical spine laminectomy. Patient presented to the emergency room for increasing shortness of breath. Patient indicates increased shortness of breath, cough, minimal sputum, chest congestion. Denies any fever , no chills. He also complained of difficulty urinating and had been drinking water all day long. He complain of suprapubic pressure and urge to urinate. In the emergency room, patient was evaluated and was noted in respiratory distress with tachypnea and diffuse expiratory wheezes. Patient was given IV Solu-Medrol and DuoNeb's. Laboratory workup was completed, he was noted with elevated d-dimer 0.51. CTA of the chest was negative for pulmonary emboli, showed a right middle lobe infiltrate. Patient was started on empiric antibiotics. Patient indicated that he is DNR and will not want intubation or chest compressions. He had his DNR paperwork with him. Patient was put on BiPAP and admitted to the intensive care unit for closer monitoring. A Blum catheter was placed and patient indicated relief. At this time, patient is evaluated in the intensive care unit. He is on BiPAP and feels improved. He is asking if the mass can be removed. He denies any chest pain at this time, shortness of breath has improved. Indicates that he still smokes 1 pack every 3 days. Patient indicates that his cancer is in remission, he follows up regularly with Dr. Isabel. Patient is admitted for further evaluation and treatment. (Zaida Shrestha) Review of Systems Constitutional: DENIES: Diaphoretic episodes, Fatigue, Fever, Weight gain, Weight loss, Chills, Dizziness, Change in appetite, Night Sweats Endocrine: DENIES: Heat/cold intolerance, Polydipsia, Polyuria, Polyphagia Eyes: DENIES: Blurred vision, Diplopia, Eye inflammation, Eye pain, Vision loss , Photosensitivity, Double Vision Ears, nose, mouth, throat: DENIES: Tinnitus, Hearing loss, Vertigo, Nasal discharge, Oral lesions, Throat pain, Hoarseness, Ear Pain, Running Nose, Epistaxis, Sinus Pain, Toothache, Odynophagia Respiratory: COMPLAINS OF: Cough, Wheezing, Shortness of breath, DENIES: Apneas, Snoring, Hemoptysis, Sputum production Cardiovascular: DENIES: Chest pain, Palpitations, Syncope, Dyspnea on Exertion , PND, Lower Extremity Edema, Orthopnea, Claudication Gastrointestinal: DENIES: Abdominal pain, Black stools, Bloody stools, Constipation, Diarrhea, Nausea, Vomiting, Difficulty Swallowing, Anorexia Genitourinary: DENIES: Sexual dysfunction, Urinary frequency, Urinary incontinence, Urgency, Hematuria, Dysuria, Nocturia, Penile Discharge, Testicular Pain, Testicular Swelling Musculoskeletal: COMPLAINS OF: Back pain, DENIES: Joint pain, Muscle aches, Stiffness, Joint Swelling, Neck pain Integumentary: DENIES: Abnormal pigmentation, Nail changes, Pruritus, Rash Hematologic/lymphatic: DENIES: Bruising, Lymphadenopathy Immunologic/allergic: DENIES: Eczema, Urticaria Neurologic: DENIES: Abnormal gait, Headache, Localized weakness, Paresthesias, Seizures, Speech Problems, Tremor, Poor Balance Psychiatric: DENIES: Anxiety, Confusion, Mood changes, Depression, Hallucinations, Agitation, Suicidal Ideation, Homicidal Ideation, Delusions Other could not void (Zaida Shrestha) Past Family Social History Past Medical History COPD Parkinson's disease SAH s/p stenting (seizures only with acute SAH) HTN HLD anxiety BPH Chronic neck/back pain Bladder cancer, on remission, sees Dr. Isabel Tobacco abuse ? ETOH use Short term memory loss Past Surgical History Cerebral artery stenting Cervical spine fusion Laminectomy Cystoscopies Reported Medications Reported Meds & Active Scripts Active Aspirin EC (Aspirin) 81 Mg Tabdr 81 Mg PO DAILY Oxygen tank (Oxygen) 1 Ea Tank 2 Liter CAMERON.CANULA CONTINUOUS Oxygen Concentrator Portable Gaseous 2 L/min via Nasal Cannula Continuous For 99 months Reported Ventolin Hfa 18 GM Inh (Albuterol Sulfate) 90 Mcg/Act Aer 2 Puff INH Q4-6H PRN Tramadol (Tramadol HCl) 50 Mg Tab 50 Mg PO Q6H PRN Trazodone (Trazodone HCl) 50 Mg Tab 50 Mg PO HS Buspirone (Buspirone HCl) 10 Mg Tab 10 Mg PO TID Symbicort Inh (Budesonide/Formoterol Fumarate) 160-4.5 Mcg/Act Aero 1 Puff INH Q12HR Feosol (Ferrous Sulfate) 200 Mg Tab 325 Mg PO DAILY Multiple Vitamin 1 Tab 1 Tab PO DAILY Meloxicam 15 Mg Tab 15 Mg PO DAILY Potassium Chloride ER (Potassium Chloride) 10 Meq Cap 10 Meq PO DAILY Lasix (Furosemide) 40 Mg Tab 40 Mg PO DAILY Gabapentin 600 Mg Tab 600 Mg PO TID Tamsulosin (Tamsulosin HCl) 0.4 Mg Cap 0.4 Mg PO HS Lovastatin 10 Mg Tab 10 Mg PO HS Donepezil 10 Mg Tab 10 Mg PO HS Sinemet (Carbidopa-Levodopa) 25-100 Mg Tab 1 Tab PO TID Clonazepam 0.5 Mg Tab 0.5 Mg PO BID Carvedilol 3.125 Mg Tab 3.125 Mg PO BID Fluoxetine (Fluoxetine HCl) 40 Mg Cap 40 Cap PO DAILY Clopidogrel (Clopidogrel Bisulfate) 75 Mg Tab 75 Mg PO DAILY Ventolin Hfa 18 GM Inh (Albuterol Sulfate) 90 Mcg/Act Aer 2 Puff INH Q4H PRN ( Zaida Shrestha) Allergies: Coded Allergies: No Known Allergies (Unverified , 04/09/17) Active Ordered Medications Inpatient Medications Acetaminophen (Tylenol) 650 mg Q4H PRN PO TEMPERATURE > 101 F; Start 04/09/17 at 23:45 Albuterol/ Ipratropium (Duoneb Neb) 1 ampule Q4HR NEB PRN INH SHORTNESS OF BREATH; Start 04/09/17 at 23:45 Azithromycin 500 mg/Sodium Chloride 250 ml @ 250 mls/hr ONCE STAT IV Last administered on 04/09/17 22:49; Start 04/09/17 at 22:24; Stop 04/09/17 at 23:23 ; Status DC Azithromycin/ Sodium Chloride (Zithromax Inj/ NS 250 ml Inj) 250 ml @ 250 mls/ hr Q24H IV ; Start 04/10/17 at 23:00 Cefepime HCl 2000 mg/Sodium Chloride 100 ml @ 200 mls/hr ONCE STAT IV Last administered on 04/10/17 00:31; Start 04/09/17 at 22:24; Stop 04/09/17 at 22:53 ; Status DC Ceftriaxone Sodium 1000 mg/ Sodium Chloride 100 ml @ 200 mls/hr Q24H IV ; Start 04/10/17 at 22:00 Chlorhexidine Gluconate (Chlorhexidine 2% Cloth) 3 pack UNSCH PRN TOPICAL HYGIENIC CARE; Start 04/10/17 at 02:00; Stop 04/15/17 at 01:49 Enoxaparin Sodium (Lovenox Inj) 40 mg Q24H SQ Last administered on 04/10/17 00 :10; Start 04/10/17 at 00:00 Lorazepam 1 mg 1 mg ONCE ONCE IV PUSH Last administered on 04/09/17 22:00; Start 04/09/17 at 22:00; Stop 04/09/17 at 22:01; Status DC Methylprednisolone Sodium Succinate (SoluMEDROL INJ) 40 mg Q6H IV Last administered on 04/10/17 03:00; Start 04/10/17 at 03:00 Miscellaneous Information Patient in critical care unit? Ass... [id number] .[id number] ; Start 04/10/17 at 02:00 Ondansetron HCl (Zofran Inj) 4 mg Q6H PRN IV NAUSEA; Start 04/09/17 at 23:45 Sodium Chloride (NS 1000 ml Inj) 1,000 ml @ 100 mls/hr Q10H IV Last administered on 04/10/17 00:32; Start 04/09/17 at 23:37 Sodium Chloride (NS Flush) 2 ml UNSCH PRN IV FLUSH FLUSH AFTER USING IV ACCESS ; Start 04/09/17 at 23:45 Sodium Chloride 2 ml 2 ml BID IV FLUSH ; Start 04/10/17 at 09:00 Family History Reported Medications Reported Meds & Active Scripts Active Oxygen tank (Oxygen) 1 Ea Tank 2 Liter CAMERON.CANULA CONTINUOUS Oxygen Concentrator Portable Gaseous 2 L/min via Nasal Cannula Continuous For 99 months Reported Meloxicam 15 Mg Tab 15 Mg PO DAILY Potassium Chloride ER (Potassium Chloride) 10 Meq Cap 10 Meq PO DAILY Lasix (Furosemide) 40 Mg Tab 40 Mg PO DAILY Mother from old age Father from brain bleed Social History , has grown kids, lives at [facility] x 1 years. Smokes 1 ppd for "many years" , no illegal drug use, quit drinking 1 year ago. Uses walker for ambulation ( Zaida Shrestha) Physical Exam Vital Signs Vital Signs Date Time Temp Pulse Resp B/P Pulse Ox O2 Delivery O2 Flow Rate FiO2 04/10/17 04:00 98.0 70 17 95/58 97 04/10/17 04:00 70 04/10/17 03:34 99 40 04/10/17 02:14 74 04/10/17 02:11 98.4 74 16 110/63 97 04/10/17 01:45 98 40 04/10/17 01:30 99 15.00 100 04/10/17 00:00 96 20 101/72 98 BiPAP 40 04/09/17 23:00 84 19 99/61 96 BiPAP 40 04/09/17 22:30 98 15.00 100 04/09/17 22:00 98 40 04/09/17 22:00 96 102/59 BiPAP 40 04/09/17 21:30 96 Nasal Cannula 3.00 04/09/17 21:13 93 26 97 Room Air 04/09/17 21:13 105 14 113/69 97 Room Air 04/09/17 21:10 99.0 92 26 113/69 96 Physical Exam GENERAL: This is a well-nourished, well-developed patient, in no apparent distress. PT. currently on BIPAP SKIN: No rashes, ecchymoses or lesions. Cool and dry. HEAD: Atraumatic. Normocephalic. No temporal or scalp tenderness. EYES: Pupils equal round and reactive. Extraocular motions intact. No scleral icterus. No injection or drainage. ENT: Nose without bleeding, purulent drainage or septal hematoma. Throat without erythema, tonsillar hypertrophy or exudate. Uvula midline. Airway patent. NECK: Trachea midline. No JVD or lymphadenopathy. Supple, nontender, no meningeal signs. CARDIOVASCULAR: Regular rate and rhythm without murmurs, gallops, or rubs. RESPIRATORY: on BIPAP, breath sounds diminished at bases GASTROINTESTINAL: Abdomen soft, non-tender, nondistended. No hepato-splenomegaly , or palpable masses. No guarding. MUSCULOSKELETAL: Extremities without clubbing, cyanosis, or edema. No joint tenderness, effusion, or edema noted. No calf tenderness. Negative Homans sign bilaterally. NEUROLOGICAL: Awakes to voice, oriented x 3. Following commands, appropriate, speech clear. No focal deficits. Mild tremors to LUE Laboratory Laboratory Tests Test 04/09/17 04/09/17 04/09/17 04/10/17 21:15 21:49 22:04 02:00 White Blood Count 5.9 Red Blood Count 4.64 Hemoglobin 15.4 Hematocrit 45.2 Mean Corpuscular Volume 97.6 Mean Corpuscular Hemoglobin 33.2 Mean Corpuscular Hemoglobin 34.1 Concent Red Cell Distribution Width 14.3 Platelet Count 249 Mean Platelet Volume 8.5 Neutrophils (%) (Auto) 57.5 Lymphocytes (%) (Auto) 30.2 Monocytes (%) (Auto) 11.1 Eosinophils (%) (Auto) 0.8 Basophils (%) (Auto) 0.4 Neutrophils # (Auto) 3.4 Lymphocytes # (Auto) 1.8 Monocytes # (Auto) 0.7 Eosinophils # (Auto) 0.0 Basophils # (Auto) 0.0 CBC Comment DIFF FINAL Differential Comment D-Dimer Quantitative (PE/DVT) 0.51 Sodium Level 137 Potassium Level 3.5 Chloride Level 100 Carbon Dioxide Level 25.1 Anion Gap 12 Blood Urea Nitrogen 8 Creatinine 0.81 Estimat Glomerular Filtration 95 Rate Random Glucose 79 Calcium Level 8.7 Troponin I LESS THAN 0.02 Urine Color YELLOW Urine Turbidity CLEAR Urine pH 5.5 Urine Specific [place] 1.007 Urine Protein NEG Urine Glucose (UA) NEG Urine Ketones NEG Urine Occult Blood NEG Urine Nitrite NEG Urine Bilirubin NEG Urine Urobilinogen LESS THAN 2.0 Urine Leukocyte Esterase NEG Urine RBC LESS THAN 1 Urine WBC LESS THAN 1 Urine Squamous Epithelial <1 Cells Microscopic Urinalysis Comment CULT NOT INDICATED Blood Gas Puncture Site RT RADIAL Blood Gas Patient Temperature 98.6 Blood Gas HCO3 24 Blood Gas Base Excess 0.0 Blood Gas Oxygen Saturation 93 Arterial Blood pH 7.43 Arterial Blood Partial 36 Pressure CO2 Arterial Blood Partial 113 Pressure O2 Arterial Blood Oxygen Content 19.6 Arterial Blood 5.4 Carboxyhemoglobin Arterial Blood Methemoglobin 0.7 Blood Gas Hemoglobin 15.0 Oxygen Delivery Device BiPAP Blood Gas Ventilator Setting IPAP12/EPAP5 Blood Gas Inspired Oxygen 40 Nasal Screen MRSA (PCR) MRSA NOT DETECTED (Zaida Shrestha) Result Diagram: 04/09/17211404/09/172114 Imaging Last Impressions CT Angiography 04/09/172157 Signed Impressions: Service Date/Time: Sunday, April 09, 2017 22:31 - CONCLUSION: 1. No pulmonary embolus. 2. Mild right upper lobe infiltrate. 3. Mild bibasilar atelectasis. 4. Elevated left hemidiaphragm, at least present since February of 2015 but exact age uncertain and etiology also uncertain. 5. Coronary artery calcification. Kirill Conte MD Chest X-Ray 04/09/172111 Signed Impressions: Service Date/Time: Sunday, April 09, 2017 21:29 - CONCLUSION: 1. Early/mild pneumonia suspected in the right midlung. 2. Chronic atelectasis and hemidiaphragm elevation again noted on the left. Kirill Conte MD (Zaida Shrestha [facility]) Assessment and Plan Problem List: (1) Acute respiratory failure (2) COPD (chronic obstructive pulmonary disease) (3) Obstructive uropathy (4) History of subarachnoid hemorrhage (5) Parkinsons (6) HLD (hyperlipidemia) (7) HTN (hypertension) (8) hx brain aneurysm Assessment and Plan Admit to Dr. Carey 66-year-old male with history of COPD still smoking, history of bladder cancer. Patient presented to the emergency room with shortness of breath and difficulty urinating complaining of suprapubic tenderness. Acute respiratory failure on BIPAP COPD exacerbation with possible pneumonia versus bronchitis. CXR showing RML infiltrate Tobaccoism Continue with Solu-Medrol 40 mg IV every 6 Continue with BiPAP and wean off as tolerated Pulmonology has been consulted Continue with empiric antibiotics and follow cultures Continue with [facility] Tobacco abuse counseling Urinary retention, history of BPH History of bladder cancer, now in remission according to patient. Previous cystoscopy with TURBT per Dr. Isabel. Continue Blum catheter Resume Flomax 0.4 mg by mouth daily We will DC Blum catheter tomorrow and monitor for voiding Chronic back and neck pain, history of cervical laminectomy Continue with pain management Hypertension, -continue home meds Hyperlipidemia -continue statins Parkinson -continue home medications Home medications have been reviewed, initiated as indicated SCDs/Lovenox for DVT prophylaxis Protonix for GI prophylaxis Pt. is a DNR, this was confirmed with pt. His wishes will be respected. Plan of care has been discussed with the patient, attending and registered nurse. Further management of the patient will be dependent on the hospital course This patient was seen by myself and Dr. Carey, this H&P is written on his behalf (Zaida Shrestha) Assessment and Plan PT is seen & Examined d/w PT d/w Zaida turner w above cont current tx am labs Dr Arauz will f/u (Sugar Carey MD) Physician Certification 2 Midnight Certification Type: Admission for Inpatient Services Order for Inpatient Services The services are ordered in accordance with Medicare regulations or non- Medicare payer requirements, as applicable. In the case of services not specified as inpatient-only, they are appropriately provided as inpatient services in accordance with the 2-midnight benchmark. Estimated LOS (days): 2 2 days is the estimated time the patient will need to remain in the hospital, assuming treatment plan goals are met and no additional complications. Post-Hospital Plan: [facility]it[facility] (Zaida Shrestha) Problem Qualifiers (1) Acute respiratory failure: Qualified Code: J96.00 - Acute respiratory failure, unspecified whether with hypoxia or hypercapnia (2) COPD (chronic obstructive pulmonary disease): Qualified Code: J44.1 - Chronic obstructive pulmonary disease with acute exacerbation (3) HLD (hyperlipidemia): Qualified Code: E78.5 - Hyperlipidemia, unspecified hyperlipidemia type (4) HTN (hypertension): Qualified Code: I10 - Essential hypertension Zaida Shrestha Apr 10, 2017 06:55 Sugar Carey MD Apr 10, 2017 14:30
[2017-04-10] MEDS: SODIUM CHLORIDE 0.9% FLUSH 10 ML FLUSH IV FLUSH SCH ×2 (07:47→21:51)
[2017-04-10] MEDS: BUDESONIDE-FORMOTEROL 160/4.5 MCG INHALER INH SCH ×2 (09:00→21:50)
[2017-04-10] MEDS: POTASSIUM CHLORIDE 10 MEQ CAP PO SCH (09:00)
[2017-04-10] MEDS: CARBIDOPA/LEVODOPA 25 MG/100 MG TAB PO SCH ×3 (10:30→17:21)
[2017-04-10] MEDS: CARVEDILOL 3.125 MG TAB PO SCH ×2 (10:30→21:50)
[2017-04-10] MEDS: busPIRone HCL 10 MG TAB PO SCH ×3 (10:30→17:20)
[2017-04-10] MEDS: FUROSEMIDE 40 MG TAB PO SCH (10:30)
[2017-04-10] MEDS: FERROUS SULFATE 325 MG (65 MG ELEMENTAL IRON) TAB PO SCH (10:30)
[2017-04-10] MEDS: ASPIRIN EC 81 MG TABEC PO SCH (10:30)
[2017-04-10] MEDS: CLOPIDOGREL 75 MG TAB PO SCH (10:31)
[2017-04-10] MEDS: GABAPENTIN 300 MG CAP PO SCH ×3 (10:31→17:21)
[2017-04-10] MEDS: FLUoxetine HCL 20 MG CAP PO SCH (10:31)
--- NOTE | 2017-04-10 12:16 | EKG ---
Date Performed: 04/09/2017 Time Performed: 21:21:21 PTAGE: 66 years EKG: Sinus rhythm NORMAL ECG PREVIOUS TRACING : 01/09/2017 21.50 Compared to prior tracing no significant change DOCTOR: Ramin Klein Interpretating Date/Time 04/10/2017 12:12:48
--- NOTE | 2017-04-10 16:07 | MB ---
cc: KEM BROWNLEE M.D. DATE OF CONSULTATION: 04/10/2017. REASON FOR CONSULTATION: COPD exacerbation, respiratory failure. HISTORY OF PRESENT ILLNESS: Mr. Campbell is a 66-year-old male who was admitted with increasing shortness of breath, cough, expectoration of whitish yellowish mucoid sputum, failing outpatient therapy. The patient does have an extensive medical history including treated bladder cancer, hypertension, previous subarachnoid bleed. The patient had a CTA with evidence of right middle lobe lung infiltrate. His symptoms are improving with bronchodilator therapy and antibiotic therapy. PAST MEDICAL HISTORY: His past medical history is that of: 1. COPD. 2. Parkinson's disease. 3. Hypertension. 4. Hyperlipidemia. 5. History of treated bladder cancer. 6. He had a cervical spine fusion and laminectomy in the past. MEDICATIONS: His medications at home include: 1. Oxygen at 2 liters nasal cannula. 2. Tramadol. 3. Trazodone. 4. Buspirone. 5. Symbicort twice a day. 6. Albuterol PRN. 7. Lasix. 8. Potassium. 9. Meloxicam. 10. Gabapentin. 11. Tamsulosin. 12. Lovastatin. 13. Donepezil. 14. Sinemet. 15. Clonazepam. 16. Carvedilol. 17. Fluoxetine. ALLERGIES: NONE KNOWN TO MEDICATIONS. FAMILY HISTORY: Noncontributory. REVIEW OF SYSTEMS: A twelve-point review of systems is as per the history of present illness and past history, otherwise negative. PHYSICAL EXAMINATION: GENERAL: On exam, the patient is alert. VITAL SIGNS: Temperature is 98, pulse 80, respirations 18, blood pressure 113/70. HEAD, EYES, EARS, NOSE, THROAT: Unremarkable. Eyes without icterus. NECK: No adenopathy. No thyroid enlargement. CHEST: Scattered rhonchi bilaterally. CARDIAC: PMI distant. S1-S2 audible. 1/6 systolic ejection murmur at the left sternal border. ABDOMEN: Lax. Bowel sounds audible. EXTREMITIES: No cyanosis, clubbing or edema. LABS: White count 5.6, hemoglobin 15, hematocrit 45, platelet count 249,000. Sodium 137, potassium 3.5, BUN 8, creatinine 0.8. IMAGING STUDIES: CT angiogram: No pulmonary emboli identified. Right middle lobe infiltrate, elevated left hemidiaphragm and coronary artery calcification. IMPRESSION: 1. COPD exacerbation. 2. Acute respiratory failure. 3. Parkinson's disease. 4. Hypertension. 5. Hyperlipidemia. 6. History of subarachnoid bleed. 7. History of bladder cancer, treated. 8. Pneumonia. PLAN: 1. The patient was admitted to the hospital. 2. Oxygen therapy and bronchodilator therapy will be continued. 3. Antibiotic therapy instituted. 4. Counselling for tobacco abuse would be appropriate as well. 5. Follow up the patient's chest x-ray until complete resolution of lung infiltrate. I do thank you for asking me to partake in Mr. Campbell's care. Kem Brownlee MD WWW/Megha /2:15 PM /4:01 PM
[2017-04-10] MEDS: TAMSULOSIN HCL 0.4 MG CAP PO SCH (21:50)
[2017-04-10] MEDS: cefTRIAXone INJ 1,000 MG in SODIUM CHLORIDE 0.9% INJ 100 ML IV SCH (21:50)
[2017-04-10] MEDS: traZODone HCL 50 MG TAB PO SCH (21:50)
[2017-04-10] MEDS: PRAVASTATIN SOD 10 MG TAB PO SCH (21:50)
[2017-04-10] MEDS: DONEPEZIL HCL 5 MG TAB PO SCH (22:05)
[2017-04-10] MEDS: AZITHROMYCIN INJ 500 MG in SODIUM CHLOR 0.9% 250 ML INJ 250 ML IV SCH (23:11)
[2017-04-11] VITALS (8 sets, daily range): BP systolic 124–147; BP diastolic 64–79; PULSE 64–83; RESP 16–32; TEMP 98–98.8; O2SAT 94–98
[2017-04-11] MEDS: RESP: ALBUTEROL 2.5 MG/IPRATROPIUM 0.5 MG NEB (SCH) INH ×4 (04:00→21:17)
[2017-04-11] MEDS: CHLORHEXIDINE GLUCONATE 2 % 1 PACK (2 CLOTHS)(taper/protocol) TOPICAL SCH ×2 (04:00→21:10)
[2017-04-11] MEDS: methylPREDNISolone SOD SUCC 40 MG/1 ML VIAL IV SCH ×4 (05:04→21:08)
[2017-04-11] MEDS: FERROUS SULFATE 325 MG (65 MG ELEMENTAL IRON) TAB PO SCH (08:39)
[2017-04-11] MEDS: CARVEDILOL 3.125 MG TAB PO SCH ×2 (08:39→21:10)
[2017-04-11] MEDS: BUDESONIDE-FORMOTEROL 160/4.5 MCG INHALER INH SCH ×2 (08:39→21:07)
[2017-04-11] MEDS: GABAPENTIN 300 MG CAP PO SCH ×3 (08:39→17:18)
[2017-04-11] MEDS: CLOPIDOGREL 75 MG TAB PO SCH (08:40)
[2017-04-11] MEDS: busPIRone HCL 10 MG TAB PO SCH ×3 (08:40→17:18)
[2017-04-11] MEDS: ASPIRIN EC 81 MG TABEC PO SCH (08:40)
[2017-04-11] MEDS: SODIUM CHLORIDE 0.9% FLUSH 10 ML FLUSH IV FLUSH SCH ×2 (08:40→21:08)
[2017-04-11] MEDS: CARBIDOPA/LEVODOPA 25 MG/100 MG TAB PO SCH ×3 (08:40→17:18)
[2017-04-11] MEDS: FUROSEMIDE 40 MG TAB PO SCH (08:40)
[2017-04-11] MEDS: FLUoxetine HCL 20 MG CAP PO SCH (08:41)
[2017-04-11] MEDS: POTASSIUM CHLORIDE 10 MEQ CAP PO SCH (09:00)
--- NOTE | 2017-04-11 09:18 | HHI.PR ---
Subjective Subjective Remarks Alert Answering questions appropriately Generalized weakness Mild wheezing noted at rest O2 at 4 L nasal cannula Denies any chest pain (Alexandria Laboy) Review of Systems Constitutional Constitutional: Fatigue, Weakness Constitutional Remarks 12 point ROS done positives noted (Alexandria Laboy) Eyes Eyes Remarks PEA RLA (Alexandria Laboy) Pulmonary Respiratory: Coughing (randomly at rest), Shortness of Breath (low volumes), Wheezing (expiratory and audible) (Alexandria Laboy) Genitourinary Remarks Urinary retention Blum catheter in place, (Alexandria Laboy) Musculoskeletal MS: Weakness, Stiffness (Alexandria Laboy) Psychiatric Psychiatric: Normal Mood (Alexandria Laboy) Vitals/Results Intake & Output 04/10/17 04/10/17 04/11/17 15:00 23:00 07:00 Intake Total 1400 ml 1110 ml 708 ml Output Total 1350 ml 800 ml 625 ml Balance 50 ml 310 ml 83 ml Intake Oral 450 ml 240 ml 50 ml IV Total 950 ml 870 ml 658 ml Output Urine Total 1350 ml 800 ml 625 ml # Bowel Movements 0 0 1 Vital Signs Vital Signs Date Time Temp Pulse Resp B/P Pulse Ox O2 Delivery O2 Flow Rate FiO2 04/11/17 08:03 98 Nasal Cannula 4.00 04/11/17 08:00 98.0 83 22 147/70 97 04/11/17 08:00 83 04/11/17 04:00 98.5 74 32 126/64 98 04/11/17 00:00 98.3 66 16 124/64 97 04/10/17 20:00 98.0 98 28 111/63 94 04/10/17 19:29 95 Nasal Cannula 3.00 04/10/17 16:00 98.2 95 20 101/65 94 04/10/17 16:00 95 04/10/17 12:00 98.1 86 34 140/75 96 04/10/17 12:00 86 04/10/17 09:18 96 Nasal Cannula 3.00 (Alexandria Laboy) CBC/BMP: 04/09/17211404/09/172114 Current Medications Administered Medications Medications (Trade) Dose Ordered Sig/Kvng Route PRN Reason Start Time Stop Time Status Last Admin Dose Admin Sodium Chloride (NS 1000 ml Inj) 1,000 ml @ 100 mls/hr Q10H IV 04/09/17 23:37 04/10/17 21:53 Sodium Chloride 2 ml 2 ml BID IV FLUSH 04/10/17 09:00 04/11/17 08:40 Ceftriaxone Sodium 1000 mg/ Sodium Chloride 100 ml @ 200 mls/hr Q24H IV 04/10/17 22:00 04/10/17 21:50 Azithromycin/ Sodium Chloride (Zithromax Inj/ NS 250 ml Inj) 250 ml @ 250 mls/hr Q24H IV 04/10/17 23:00 04/10/17 23:11 Methylprednisolone Sodium Succinate (SoluMEDROL INJ) 40 mg Q6H IV 04/10/17 03:00 04/11/17 08:39 Enoxaparin Sodium (Lovenox Inj) 40 mg Q24H SQ 04/10/17 00:00 04/10/17 23:11 Chlorhexidine Gluconate (Chlorhexidine 2% Cloth) 3 pack DAILY@04 TOPICAL 04/10/17 04:00 04/14/17 04:01 04/11/17 04:00 Aspirin (Ecotrin Ec) 81 mg DAILY PO 04/10/17 09:00 04/11/17 08:40 Budesonide/ Formoterol Fumarate (Symbicort 160-4.5 Inh) 1 puff Q12HR INH 04/10/17 09:00 04/11/17 08:39 Buspirone HCl (Buspar) 10 mg TID PO 04/10/17 09:00 04/11/17 08:40 Carbidopa/Levodopa (Sinemet 25-100 Mg) 1 tab TID PO 04/10/17 09:00 04/11/17 08:40 Carvedilol (Coreg) 3.125 mg BID PO 04/10/17 09:00 04/11/17 08:39 Clopidogrel Bisulfate (Plavix) 75 mg DAILY PO 04/10/17 09:00 04/11/17 08:40 Donepezil HCl (Aricept) 10 mg HS PO 04/10/17 21:00 04/10/17 22:05 Ferrous Sulfate (Ferrous Sulfate) 325 mg DAILY PO 04/10/17 09:00 04/11/17 08:39 Fluoxetine HCl (PROzac) 40 mg DAILY PO 04/10/17 09:00 04/11/17 08:41 Furosemide (Lasix) 40 mg DAILY PO 04/10/17 09:00 04/11/17 08:40 Gabapentin (Neurontin) 600 mg TID PO 04/10/17 09:00 04/11/17 08:39 Pravastatin Sodium (Pravachol) 10 mg HS PO 04/10/17 21:00 04/10/17 21:50 Tamsulosin HCl (Flomax) 0.4 mg HS PO 04/10/17 21:00 04/10/17 21:50 Trazodone HCl (Desyrel) 50 mg HS PO 04/10/17 21:00 04/10/17 21:50 (Alexandria Laboy) Physical Exam General General Appearance: Comfortable, Anxious (mild) (Alexandria Laboy) Eyes Eye Exam: Pupils Equal (Alexandria Laboy) Ears & Nose Ears & Nose Exam: Nasal Mucosa [place] (Alexandria Laboy) Throat Throat Exam: Oral Mucosa [place] & Moist (pale) (Alexandria Laboy) Neck Neck Exam: Neck Supple (Alexandria Laboy) Pulmonary Resp Exam: Decreased Bases, Diminished Breath Sounds, Poor Inspiratory Effort ( low volumes) Resp Remarks Expiratory wheezes (Alexandria Laboy) Cardiology CV Exam: Regular (Alexandria Laboy) Gastrointestinal/Abdomen GI Exam: Soft, Bowel Sounds Present (Alexandria Laboy) Genitourinary Remarks Blum catheter recent urinary retention noted according to patient (Alexandria Laboy) Musculoskeletal MS Exam: Joints Intact, Atrophy (Alexandria Laboy) Integumentary Skin Exam: Warm, Dry, Intact (and turgor) (Alexandria Laboy) Extremeties Extremities Exam: No Edema (Alexandria Laboy) Neurologic Neuro Exam: Awake, Oriented (Alexandria Laboy) Assessment/Plan Assessment/Plan (1) Acute respiratory failure (2) COPD (chronic obstructive pulmonary disease) (3) Obstructive uropathy (4) History of subarachnoid hemorrhage (5) Parkinsons (6) HLD (hyperlipidemia) (7) HTN (hypertension) (8) hx brain aneurysm 66-year-old male with history of COPD still smoking, history of bladder cancer. Patient presented to the emergency room with shortness of breath and difficulty urinating complaining of suprapubic tenderness. Ruled out for PE, possible pneumonia seen on chest x-ray Acute respiratory failure, off BiPAP this morning, O2 noted at 4 L COPD exacerbation, medical management with dual nebs O2 and steroids, medications, antibiotics Patient continues to smoke, decreased amounts now he states, education given well as encouragement for smoking Pulmonology consult did and appreciate input Patient's now drinking by mouth fluids well we'll discontinue antibiotics and monitor labs Urinary retention, history of BPH History of bladder cancer, now in remission according to patient. Previous cystoscopy with TURBT per Dr. Isabel. Blum catheter, medical management, will discontinue Blum and monitor for voiding patterns. If unable to void we'll consult urology. Chronic back and neck pain, history of cervical laminectomy Continue with pain management Hypertension, -continue home meds Hyperlipidemia Medical management SCDs/Lovenox for DVT prophylaxis Protonix for GI prophylaxis Pt. is a DNR, this was confirmed with pt. His wishes will be respected. Plan of care has been discussed with the patient, attending and registered nurse. 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
[2017-04-11 12:37] LABS: HEMATOCRIT 41.2 % (39.0-51.0); MEAN CELL VOLUME 99.2 FL (80.0-100.0); MEAN CORPUSCULAR HGB CONC 33.3 % (32.0-36.0); PLATELET COUNT 214 TH/MM3 (150-450); RED BLOOD COUNT 4.16 MIL/MM3 (4.50-5.90); RED CELL DISTRIBUTION WIDTH 14.5 % (11.6-17.2); REVIEW FLAG FINAL; WHITE BLOOD COUNT 10.4 TH/MM3 (4.0-11.0)
[2017-04-11 13:09] LABS: POTASSIUM 3.9 MEQ/L (3.5-5.1)
--- NOTE | 2017-04-11 16:25 | HHI.PR ---
Subjective Remarks aler no SOB at rest on O2 via NC Objective Vital Signs Date Time Temp Pulse Resp B/P Pulse Ox O2 Delivery O2 Flow Rate FiO2 04/11/17 12:00 72 04/11/17 12:00 98.4 72 26 143/74 97 04/11/17 08:03 98 Nasal Cannula 4.00 04/11/17 08:00 98.0 83 22 147/70 97 04/11/17 08:00 83 04/11/17 04:00 98.5 74 32 126/64 98 04/11/17 00:00 98.3 66 16 124/64 97 04/10/17 20:00 98.0 98 28 111/63 94 04/10/17 19:29 95 Nasal Cannula 3.00 I/O 04/10/17 04/10/17 04/10/17 04/11/17 04/11/17 04/11/17 07:00 15:00 23:00 07:00 15:00 23:00 Intake Total 731 ml 1400 ml 1110 ml 708 ml Output Total 775 ml 1350 ml 800 ml 625 ml 1400 ml Balance -44 ml 50 ml 310 ml 83 ml -1400 ml Intake Oral 240 ml 450 ml 240 ml 50 ml IV Total 491 ml 950 ml 870 ml 658 ml Output Urine Total 775 ml 1350 ml 800 ml 625 ml 1400 ml # Bowel Movements 0 0 0 1 1 Result Diagram: 04/11/17 1222 04/11/17 1222 Objective Remarks GENERAL: SKIN: Warm and dry. HEAD: Atraumatic. Normocephalic. EYES: Pupils equal and round. No scleral icterus. No injection or drainage. ENT: No nasal bleeding or discharge. Mucous membranes pink and moist. NECK: Trachea midline. No JVD. CARDIOVASCULAR: Regular rate and rhythm. RESPIRATORY: No accessory muscle use. Clear to auscultation. Breath sounds equal bilaterally. GASTROINTESTINAL: Abdomen soft, non-tender, nondistended. Hepatic and splenic margins not palpable. MUSCULOSKELETAL: Extremities without clubbing, cyanosis, or edema. No obvious deformities. NEUROLOGICAL: Awake and alert. No obvious cranial nerve deficits. Motor grossly within normal limits. Five out of 5 muscle strength in the arms and legs. Normal speech. PSYCHIATRIC: Appropriate mood and affect; insight and judgment normal. Assessment and Plan Assessment and Plan ASS COPD RESPIRATORY FAILURE PLAN O2 NEEDED BRONCHODILATOR THERAPY INCREASE ACTIVITY Kem,Kem Wadie MD Apr 11, 2017 16:25
[2017-04-11] MEDS: PRAVASTATIN SOD 10 MG TAB PO SCH (21:09)
[2017-04-11] MEDS: DONEPEZIL HCL 5 MG TAB PO SCH (21:09)
[2017-04-11] MEDS: TAMSULOSIN HCL 0.4 MG CAP PO SCH (21:09)
[2017-04-11] MEDS: traZODone HCL 50 MG TAB PO SCH (21:09)
[2017-04-11] MEDS: cefTRIAXone INJ 1,000 MG in SODIUM CHLORIDE 0.9% INJ 100 ML IV SCH (21:10)
[2017-04-11] MEDS: AZITHROMYCIN INJ 500 MG in SODIUM CHLOR 0.9% 250 ML INJ 250 ML IV SCH (21:10)
[2017-04-11] MEDS: ENOXAPARIN SODIUM 40 MG/0.4 ML SYRINGE SQ SCH (23:17)
[2017-04-12] VITALS (11 sets, daily range): BP systolic 116–151; BP diastolic 67–91; PULSE 59–81; RESP 22–44; TEMP 97.9–98.3; O2SAT 89–96
[2017-04-12] MEDS: methylPREDNISolone SOD SUCC 40 MG/1 ML VIAL IV SCH ×2 (03:00→08:14)
[2017-04-12] MEDS: RESP: ALBUTEROL 2.5 MG/IPRATROPIUM 0.5 MG NEB (SCH) INH ×4 (04:00→21:05)
[2017-04-12 06:07] LABS: BICARBONATE 32.3 MEQ/L (21.0-32.0)
[2017-04-12] MEDS: BUDESONIDE-FORMOTEROL 160/4.5 MCG INHALER INH SCH ×2 (08:14→21:00)
[2017-04-12] MEDS: SODIUM CHLORIDE 0.9% FLUSH 10 ML FLUSH IV FLUSH SCH ×2 (08:14→20:51)
[2017-04-12] MEDS: CLOPIDOGREL 75 MG TAB PO SCH (08:15)
[2017-04-12] MEDS: POTASSIUM CHLORIDE 10 MEQ CAP PO SCH (08:15)
[2017-04-12] MEDS: GABAPENTIN 300 MG CAP PO SCH ×3 (08:16→20:32)
[2017-04-12] MEDS: FERROUS SULFATE 325 MG (65 MG ELEMENTAL IRON) TAB PO SCH (08:16)
[2017-04-12] MEDS: CARBIDOPA/LEVODOPA 25 MG/100 MG TAB PO SCH ×3 (08:16→20:32)
[2017-04-12] MEDS: busPIRone HCL 10 MG TAB PO SCH ×3 (08:16→20:33)
[2017-04-12] MEDS: FLUoxetine HCL 20 MG CAP PO SCH (08:16)
[2017-04-12] MEDS: ASPIRIN EC 81 MG TABEC PO SCH (08:16)
[2017-04-12] MEDS: CARVEDILOL 3.125 MG TAB PO SCH ×2 (08:16→20:33)
[2017-04-12] MEDS: FUROSEMIDE 40 MG TAB PO SCH (08:16)
--- NOTE | 2017-04-12 13:11 | HHI.PR ---
Subjective Subjective Remarks Awake Resting in bed Wearing O2 per nasal cannula, Denies any shortness of breath at rest Urinating since Blum has been DC'd several times (Alexandria Laboy) Review of Systems Constitutional Constitutional: Fatigue, Weakness Constitutional Remarks 12 point ROS done positives noted (Alexandria Laboy) Eyes Eyes Remarks PEA RLA (Alexandria Laboy) Pulmonary Respiratory: Coughing, Shortness of Breath, Wheezing (Alexandria Laboy) Genitourinary Remarks Blum catheter DC'd on 619 (Alexandria Laboy) Musculoskeletal MS: Weakness, Stiffness (Alexandria Laboy) Psychiatric Psychiatric: Normal Mood (Alexandria Laboy) Vitals/Results Intake & Output 04/11/17 04/11/17 04/12/17 15:00 23:00 07:00 Intake Total 625 ml 200 ml Output Total 1400 ml 425 ml 600 ml Balance -1400 ml 200 ml -400 ml Intake Oral 240 ml 200 ml IV Total 385 ml 0 ml Output Urine Total 1400 ml 425 ml 600 ml # Voids 1 # Bowel Movements 1 Vital Signs Vital Signs Date Time Temp Pulse Resp B/P Pulse Ox O2 Delivery O2 Flow Rate FiO2 04/12/17 08:00 98.3 68 22 151/84 95 04/12/17 08:00 61 04/12/17 04:00 60 04/12/17 04:00 98.1 60 23 134/76 96 04/12/17 00:00 97.9 59 25 116/67 96 04/12/17 00:00 59 04/11/17 20:00 98.3 67 22 131/71 94 04/11/17 20:00 67 04/11/17 19:05 95 Nasal Cannula 3.00 04/11/17 16:00 98.8 64 26 143/79 95 04/11/17 16:00 64 (Alexandria Laboy) CBC/BMP: 04/11/17 1222 04/12/17 0506 Lab Results Laboratory Tests Test 04/12/17 05:06 Sodium Level 142 MEQ/L Potassium Level 4.0 MEQ/L Chloride Level 104 MEQ/L Carbon Dioxide Level 32.3 MEQ/L Anion Gap 6 MEQ/L Blood Urea Nitrogen 18 MG/DL Creatinine 0.78 MG/DL Estimat Glomerular Filtration 99 ML/MIN Rate Random Glucose 123 MG/DL Calcium Level 8.4 MG/DL Current Medications Administered Medications Medications (Trade) Dose Ordered Sig/Kvng Route PRN Reason Start Time Stop Time Status Last Admin Dose Admin Sodium Chloride 2 ml 2 ml BID IV FLUSH 04/10/17 09:00 04/12/17 08:14 Ceftriaxone Sodium 1000 mg/ Sodium Chloride 100 ml @ 200 mls/hr Q24H IV 04/10/17 22:00 04/11/17 21:10 Azithromycin/ Sodium Chloride (Zithromax Inj/ NS 250 ml Inj) 250 ml @ 250 mls/hr Q24H IV 04/10/17 23:00 04/11/17 21:10 Methylprednisolone Sodium Succinate (SoluMEDROL INJ) 40 mg Q6H IV 04/10/17 03:00 04/12/17 08:14 Enoxaparin Sodium (Lovenox Inj) 40 mg Q24H SQ 04/10/17 00:00 04/11/17 23:17 Chlorhexidine Gluconate (Chlorhexidine 2% Cloth) 3 pack DAILY@04 TOPICAL 04/10/17 04:00 04/14/17 04:01 04/11/17 21:10 Aspirin (Ecotrin Ec) 81 mg DAILY PO 04/10/17 09:00 04/12/17 08:16 Budesonide/ Formoterol Fumarate (Symbicort 160-4.5 Inh) 1 puff Q12HR INH 04/10/17 09:00 04/12/17 08:14 Buspirone HCl (Buspar) 10 mg TID PO 04/10/17 09:00 04/12/17 08:16 Carbidopa/Levodopa (Sinemet 25-100 Mg) 1 tab TID PO 04/10/17 09:00 04/12/17 08:16 Carvedilol (Coreg) 3.125 mg BID PO 04/10/17 09:00 04/12/17 08:16 Clopidogrel Bisulfate (Plavix) 75 mg DAILY PO 04/10/17 09:00 04/12/17 08:15 Donepezil HCl (Aricept) 10 mg HS PO 04/10/17 21:00 04/11/17 21:09 Ferrous Sulfate (Ferrous Sulfate) 325 mg DAILY PO 04/10/17 09:00 04/12/17 08:16 Fluoxetine HCl (PROzac) 40 mg DAILY PO 04/10/17 09:00 04/12/17 08:16 Furosemide (Lasix) 40 mg DAILY PO 04/10/17 09:00 04/12/17 08:16 Gabapentin (Neurontin) 600 mg TID PO 04/10/17 09:00 04/12/17 08:16 Pravastatin Sodium (Pravachol) 10 mg HS PO 04/10/17 21:00 04/11/17 21:09 Tamsulosin HCl (Flomax) 0.4 mg HS PO 04/10/17 21:00 04/11/17 21:09 Trazodone HCl (Desyrel) 50 mg HS PO 04/10/17 21:00 04/11/17 21:09 (Alexandria Laboy) Physical Exam General General Appearance: Comfortable, Anxious (Alexandria Laboy) Eyes Eye Exam: Pupils Equal (Alexandria Laboy) Ears & Nose Ears & Nose Exam: Nasal Mucosa [place] (Alexandria Laboy) Throat Throat Exam: Oral Mucosa [place] & Moist (Alexandria Laboy) Neck Neck Exam: Neck Supple (Alexandria Laboy) Pulmonary Resp Exam: Decreased Bases, Diminished Breath Sounds, Poor Inspiratory Effort Resp Remarks Expiratory wheezes improved, and pretty much resolved (Alexandria Laboy) Cardiology CV Exam: Regular (Alexandria Laboy) Gastrointestinal/Abdomen GI Exam: Soft, Bowel Sounds Present (Alexandria Laboy) Genitourinary Remarks Blum catheter recent urinary retention noted according to patient (Alexandria Laboy) Musculoskeletal MS Exam: Joints Intact, Atrophy (Alexandria Laboy) Integumentary Skin Exam: Warm, Dry, Intact (Alexandria Laboy) Extremeties Extremities Exam: No Edema (Alexandria Laboy) Neurologic Neuro Exam: Awake, Oriented (Alexandria Laboy) Assessment/Plan Assessment/Plan Acute respiratory failure, currently managed on O2 per nasal cannula, IV steroids decreased today from every 6 hours to every 12 hours. COPD exacerbation, medical management with dual nebs O2 and steroids, medications, antibiotics Patient continues to smoke, decreased amounts now he states, education given well as encouragement for smoking Pulmonology consult did and appreciate input Appetite good, eating and drinking adequate amounts, no wheezing noted today Urinary retention, history of BPH History of bladder cancer, now in remission according to patient. Previous cystoscopy with TURBT per Dr. Isabel. Patient is voiding several times since Blum DC'd. Medical management with Flomax Hypertension, -continue home meds Hyperlipidemia Medical management SCDs/Lovenox for DVT prophylaxis Protonix for GI prophylaxis Pt. is a DNR, this was confirmed with pt. His wishes will be respected. Plan of care has been discussed with the patient, attending and registered nurse. (Alexandria Laboy) Discussed with nurse Discussed with patient Discussed with Dr. Arauz, patient seen on his behalf Patient has transfer orders out of the intensive care setting but no available beds, his care is based on stepdown level for now. Continuous monitoring Discharge planning , patient will need physical therapy on 6-21` (Alexandria Laboy) Assessment/Plan pt seen and examined labs and meds reviwed steroid chnage to po and monitor inhouse vickie pulm input if stable hopefully dc tomorrow dw pt alexis rn (Mikhail Arauz MD) Alexandria Laboy Apr 12, 2017 13:11 Mikhail Arauz MD Apr 12, 2017 15:09
--- NOTE | 2017-04-12 16:36 | HHI.PR ---
Subjective Remarks aler no SOB at rest on O2 via NC Objective Vital Signs Date Time Temp Pulse Resp B/P Pulse Ox O2 Delivery O2 Flow Rate FiO2 04/12/17 12:00 67 04/12/17 12:00 98.1 67 26 145/74 93 04/12/17 08:00 98.3 68 22 151/84 95 04/12/17 08:00 61 04/12/17 04:00 60 04/12/17 04:00 98.1 60 23 134/76 96 04/12/17 00:00 97.9 59 25 116/67 96 04/12/17 00:00 59 04/11/17 20:00 98.3 67 22 131/71 94 04/11/17 20:00 67 04/11/17 19:05 95 Nasal Cannula 3.00 I/O 04/11/17 04/11/17 04/11/17 04/12/17 04/12/17 04/12/17 07:00 15:00 23:00 07:00 15:00 23:00 Intake Total 708 ml 625 ml 200 ml Output Total 625 ml 1400 ml 425 ml 600 ml 1650 ml Balance 83 ml -1400 ml 200 ml -400 ml -1650 ml Intake Oral 50 ml 240 ml 200 ml IV Total 658 ml 385 ml 0 ml Output Urine Total 625 ml 1400 ml 425 ml 600 ml 1650 ml # Voids 1 # Bowel Movements 1 1 2 Result Diagram: 04/11/17 1222 04/12/17 0506 Objective Remarks GENERAL: SKIN: Warm and dry. HEAD: Atraumatic. Normocephalic. EYES: Pupils equal and round. No scleral icterus. No injection or drainage. ENT: No nasal bleeding or discharge. Mucous membranes pink and moist. NECK: Trachea midline. No JVD. CARDIOVASCULAR: Regular rate and rhythm. RESPIRATORY: No accessory muscle use. Clear to auscultation. Breath sounds equal bilaterally. GASTROINTESTINAL: Abdomen soft, non-tender, nondistended. Hepatic and splenic margins not palpable. MUSCULOSKELETAL: Extremities without clubbing, cyanosis, or edema. No obvious deformities. NEUROLOGICAL: Awake and alert. No obvious cranial nerve deficits. Motor grossly within normal limits. Five out of 5 muscle strength in the arms and legs. Normal speech. PSYCHIATRIC: Appropriate mood and affect; insight and judgment normal. Assessment and Plan Assessment and Plan ASS COPD RESPIRATORY FAILURE PLAN O2 NEEDED BRONCHODILATOR THERAPY INCREASE ACTIVITY F/U CXRAY Kem Brownlee MD Apr 12, 2017 16:36
--- NOTE | 2017-04-12 17:03 | RADRPT ---
EXAM DATE/TIME: 04/12/2017 16:41 [facility] COMPARISON: CT PULMONARY ANGIOGRAM, April 09, 2017, 22:31. CHEST SINGLE AP, April 09, 2017, 21:29. INDICATIONS : Shortness of breath. Pneumonia. MEDICAL HISTORY : Chronic obstructive pulmonary disease. SURGICAL HISTORY : None. ENCOUNTER: Subsequent ACUITY: 4 - 6 days PAIN SCORE: 0/10 LOCATION: Bilateral chest FINDINGS: There is elevation of the left hemidiaphragm. There is minimal atelectatic change at the left lung ba se. Right lung is clear. The osseous structures are intact. CONCLUSION: Elevated left hemidiaphragm. The lungs are clear. Wilfredo Fitch MD on April 12, 2017 at 16:59 Board Certified Radiologist. This report was verified electronically.
[2017-04-12] MEDS: DONEPEZIL HCL 5 MG TAB PO SCH (20:32)
[2017-04-12] MEDS: TAMSULOSIN HCL 0.4 MG CAP PO SCH (20:33)
[2017-04-12] MEDS: traZODone HCL 50 MG TAB PO SCH (20:33)
[2017-04-12] MEDS: predniSONE 20 MG TAB PO SCH (20:33)
[2017-04-12] MEDS: AZITHROMYCIN INJ 500 MG in SODIUM CHLOR 0.9% 250 ML INJ 250 ML IV SCH (20:33)
[2017-04-12] MEDS: PRAVASTATIN SOD 10 MG TAB PO SCH (20:33)
[2017-04-12] MEDS: cefTRIAXone INJ 1,000 MG in SODIUM CHLORIDE 0.9% INJ 100 ML IV SCH (20:34)
[2017-04-12] MEDS: CHLORHEXIDINE GLUCONATE 2 % 1 PACK (2 CLOTHS)(taper/protocol) TOPICAL SCH (20:51)
[2017-04-12] MEDS ORDERED: methylPREDNISolone SOD SUCC 40 MG/1 ML VIAL IV SCH (21:00)
[2017-04-13] VITALS: BP 129/80; PULSE 58; RESP 18; TEMP 97.8; O2SAT 91
[2017-04-13] MEDS: ENOXAPARIN SODIUM 40 MG/0.4 ML SYRINGE SQ SCH
[2017-04-13] MEDS: RESP: ALBUTEROL 2.5 MG/IPRATROPIUM 0.5 MG NEB (SCH) INH ×2 (02:58→08:48)
[2017-04-13 04:00] VITALS: BP 115/69; PULSE 60; RESP 32; TEMP 97.9; O2SAT 93
[2017-04-13 08:00] VITALS: BP 163/94; PULSE 68; RESP 27; TEMP 98; O2SAT 91
[2017-04-13] MEDS: predniSONE 20 MG TAB PO SCH (08:23)
[2017-04-13] MEDS: CARVEDILOL 3.125 MG TAB PO SCH (08:23)
[2017-04-13] MEDS: ASPIRIN EC 81 MG TABEC PO SCH (08:23)
[2017-04-13] MEDS: CARBIDOPA/LEVODOPA 25 MG/100 MG TAB PO SCH ×2 (08:23→13:28)
[2017-04-13] MEDS: GABAPENTIN 300 MG CAP PO SCH ×2 (08:23→13:28)
[2017-04-13] MEDS: FUROSEMIDE 40 MG TAB PO SCH (08:23)
[2017-04-13] MEDS: FERROUS SULFATE 325 MG (65 MG ELEMENTAL IRON) TAB PO SCH (08:23)
[2017-04-13] MEDS: CLOPIDOGREL 75 MG TAB PO SCH (08:23)
[2017-04-13] MEDS: POTASSIUM CHLORIDE 10 MEQ CAP PO SCH (08:23)
[2017-04-13] MEDS: busPIRone HCL 10 MG TAB PO SCH ×2 (08:23→13:28)
[2017-04-13] MEDS: SODIUM CHLORIDE 0.9% FLUSH 10 ML FLUSH IV FLUSH SCH (08:24)
[2017-04-13] MEDS: BUDESONIDE-FORMOTEROL 160/4.5 MCG INHALER INH SCH (08:24)
[2017-04-13] MEDS: FLUoxetine HCL 20 MG CAP PO SCH (08:30)
[2017-04-13 09:48] VITALS: O2SAT 93
[2017-04-13 12:00] VITALS: BP 173/98; PULSE 69; RESP 23; TEMP 98.2; O2SAT 91
[2017-04-13] MEDS ORDERED: PRED20 PO (14:10)
[2017-04-13] MEDS ORDERED: CEFT250S PO (14:10)
[2017-04-13] MEDS ORDERED: CLON0.5T PO (14:10)
[2017-04-13] MEDS ORDERED: TRAM50TA PO (14:10)
--- NOTE | 2017-04-13 14:21 | HHI.PR ---
Subjective Subjective Remarks Awake, anxious to go home Resting in bed, but wants to ambulate soon No acute SOB, feeling better Urinating since Blum has been DC'd several times (Alexandria Laboy) Review of Systems Constitutional Constitutional: Fatigue (improved), Weakness Constitutional Remarks 12 point ROS done positives noted (Alexandria Laboy) Eyes Eyes Remarks PEA RLA (Alexandria Laboy) Pulmonary Respiratory: Coughing, Shortness of Breath, Wheezing (Alexandria Laboy) Genitourinary Remarks Blum catheter DC'd on 619 (Alexandria Laboy) Musculoskeletal MS: Weakness, Stiffness (Alexandria Laboy) Psychiatric Psychiatric: Normal Mood Psychiatric Remarks wants to go home (Alexandria Laboy) Vitals/Results Intake & Output 04/12/17 04/12/17 04/13/17 15:00 23:00 07:00 Intake Total 400 ml Output Total 1650 ml 500 ml 400 ml Balance -1650 ml -100 ml -400 ml Intake Oral 400 ml Output Urine Total 1650 ml 500 ml 400 ml # Bowel Movements 2 Vital Signs Vital Signs Date Time Temp Pulse Resp B/P Pulse Ox O2 Delivery O2 Flow Rate FiO2 04/13/17 12:00 69 04/13/17 12:00 98.2 69 23 173/98 91 04/13/17 09:48 93 21 04/13/17 08:00 68 04/13/17 08:00 98.0 68 27 163/94 91 04/13/17 04:00 60 04/13/17 04:00 97.9 60 32 115/69 93 04/13/17 00:00 58 04/13/17 00:00 97.8 58 18 129/80 91 04/12/17 21:06 91 21 04/12/17 20:00 98.0 67 40 148/91 93 04/12/17 20:00 67 04/12/17 17:00 81 44 89 04/12/17 16:00 66 04/12/17 16:00 98.2 66 24 90 04/12/17 15:00 72 32 89 (Alexandria Laboy) CBC/BMP: 04/11/17 1222 04/12/17 0506 Physical Exam General General Appearance: Comfortable, Anxious (Alexandria Laboy. RN NEUROSURGICAL) Eyes Eye Exam: Pupils Equal (Alexandria Laboy M. RN NEUROSURGICAL) Ears & Nose Ears & Nose Exam: Nasal Mucosa [place] (WillitsShawna bradfordan M. RN NEUROSURGICAL) Throat Throat Exam: Oral Mucosa [place] & Moist (Alexandria Laboy M. RN NEUROSURGICAL) Neck Neck Exam: Neck Supple (Willits,Susan M. RN NEUROSURGICAL) Pulmonary Resp Exam: Decreased Bases, Diminished Breath Sounds, Poor Inspiratory Effort Resp Remarks low volumes, but clear sounds (Willits,Alexandria M. RN NEUROSURGICAL) Cardiology CV Exam: Regular (Willits,Alexandria M. RN NEUROSURGICAL) Gastrointestinal/Abdomen GI Exam: Soft, Bowel Sounds Present (Narda,Alexandria M. RN NEUROSURGICAL) Genitourinary Remarks Blum catheter recent urinary retention noted according to patient (Alexandria Laboy M. RN NEUROSURGICAL) Musculoskeletal MS Exam: Joints Intact, Atrophy (Alexandria Laboy M. RN NEUROSURGICAL) Integumentary Skin Exam: Warm, Dry, Intact (WillitsAlexandria bradford M. RN NEUROSURGICAL) Extremeties Extremities Exam: No Edema (Alexandria Laboy M. RN NEUROSURGICAL) Neurologic Neuro Exam: Awake, Oriented (Alexandria Laboy M. RN NEUROSURGICAL) Assessment/Plan Assessment/Plan vitals and labs reviewed. Acute respiratory failure, currently managed on O2 per nasal cannula, placed on PO steroids yesterday. tolerated well, No SOB COPD exacerbation, medical management , much improved. stable without SOB Patient continues to smoke, decreased amounts now he states, education given well as encouragement for smoking Pulmonology consult did and appreciate input Urinary retention, history of BPH History of bladder cancer, now in remission according to patient. Previous cystoscopy with TURBT per Dr. Isabel. Patient is voiding well since Kulwant GARCIA'd. Medical management with Flomax SCDs/Lovenox for DVT prophylaxis Protonix for GI prophylaxis Pt. is a DNR, this was confirmed with pt. His wishes will be respected. Plan of care has been discussed with the patient, attending and registered nurse. (Alexandria Laboy. RN NEUROSURGICAL) Discussed with nurse Discussed with patient Discussed with Dr. Arauz, patient seen on his behalf DC planning, ambulating around in with nurse present, will eval patient safety for dc today. Home, (Alexandria Laboy) Assessment/Plan Patient seen and examined as above Plan of care discussed with TIMOTHY Medications and labs reviewed Discussed with patient about DC planning. Counseling about smoking cessation has been given Discussed with RN Discussed with director case management Plan to discharge to [facility] to be followed by primary care doctor and pulmonary as outpatient (Mikhail Arauz MD) Alexandria Laboy Apr 13, 2017 14:21 Mikhail Arauz MD Apr 13, 2017 15:09
--- NOTE | 2017-04-13 14:50 | HHI.DS ---
Discharge Summary Admission Date Apr 09, 2017 at 23:22 Discharge Date: Apr 13, 2017 Admitting Diagnosis respiratory failure, pneumonia, COPD exacerbation (1) Acute respiratory failure Diagnosis: Principal (2) COPD (chronic obstructive pulmonary disease) Diagnosis: Principal (3) Obstructive uropathy Diagnosis: Principal (4) History of subarachnoid hemorrhage Diagnosis: Secondary (5) Parkinsons Diagnosis: Secondary (6) HLD (hyperlipidemia) Diagnosis: Secondary (7) HTN (hypertension) Diagnosis: Secondary (8) hx brain aneurysm Diagnosis: Secondary Brief History This was a 66-year-old male patient with history hypertension, bladder cancer on remission, seizure after subarachnoid hemorrhage 3 years ago for which he had stent placed intracranially, brain aneurysms, tobacco abuse, chronic back and neck pain secondary to cervical spine laminectomy. Patient presented to the emergency room for increasing shortness of breath. Patient indicated increased shortness of breath, cough, minimal sputum, chest congestion. Denied any fever, no chills. He also complained of difficulty urinating and had been drinking water all day long. He complain of suprapubic pressure and urge to urinate. CBC/BMP: 04/11/17 1222 04/12/17 0506 Significant Findings Laboratory Tests Test 04/11/17 04/12/17 12:22 05:06 Red Blood Count 4.16 MIL/MM3 (4.50-5.90) Random Glucose 140 MG/DL 123 MG/DL (74-106) (74-106) Calcium Level 8.2 MG/DL 8.4 MG/DL (8.5-10.1) (8.5-10.1) Carbon Dioxide Level 32.3 MEQ/L (21.0-32.0) Imaging Last Impressions Chest X-Ray 04/12/17 0000 Signed Impressions: Service Date/Time: Wednesday, April 12, 2017 16:41 - CONCLUSION: Elevated left hemidiaphragm. The lungs are clear. Wilfredo Fitch MD CT Angiography 04/09/17 2158 Signed Impressions: Service Date/Time: Sunday, April 09, 2017 22:31 - CONCLUSION: 1. No pulmonary embolus. 2. Mild right upper lobe infiltrate. 3. Mild bibasilar atelectasis. 4. Elevated left hemidiaphragm, at least present since February of 2015 but exact age uncertain and etiology also uncertain. 5. Coronary artery calcification. Kirill Conte MD PE at Discharge General Appearance: Comfortable, Anxious Eyes Eye Exam: Pupils Equal Ears & Nose Ears & Nose Exam: open and clear Throat Throat Exam: Oral Mucosa Orrum & Moist Neck Neck Exam: Neck Supple Pulmonary Resp Exam: Decreased Bases, Diminished Breath Sounds, Poor Inspiratory Effort Resp Remarks Expiratory wheezes improved, and pretty much resolved Cardiology CV Exam: Regular Gastrointestinal/Abdomen GI Exam: Soft, Bowel Sounds Present Genitourinary Remarks Blum catheter recent urinary retention noted according to patient Musculoskeletal MS Exam: Joints Intact, Atrophy Integumentary Skin Exam: Warm, Dry, Intact Extremeties Extremities Exam: No Edema Neurologic Neuro Exam: Awake, Oriented Hospital Course In the emergency room, patient was evaluated and was noted in respiratory distress with tachypnea and diffuse expiratory wheezes. Patient was given IV Solu-Medrol and DuoNeb's. Laboratory workup was completed, he was noted with elevated d-dimer 0.51. CTA of the chest was negative for pulmonary emboli, showed a right middle lobe infiltrate. Patient was started on empiric antibiotics. Patient indicated that he is DNR and will not want intubation or chest compressions. He had his DNR paperwork with him. Patient was put on BiPAP and admitted to the intensive care unit for closer monitoring. A Blum catheter was placed and patient indicated relief. At this time, patient was evaluated in the intensive care unit. He was on BiPAP and feels improved. He was asking if the mass can be removed. He denied any chest pain at this time, shortness of breath has improved. Indicated that he still smokes 1 pack every 3 days. Patient indicated that his cancer is in remission, he follows up regularly with Dr. Isabel. Patient was admitted for further evaluation and treatment. Please note the diagnoses listed above for patient's plan of care. Patient was initially placed in the ICU setting, and stabilized from his respiratory failure and COPD exacerbation with the medical management listed below. Patient responded well to O2 dual nebs, antibiotics and home medication. Patient was transitioned to by mouth steroids 24 hours before discharge and tolerated well. Test x-ray reevaluated his lung status and showed his lungs to be essentially clear. Patient was started on Flomax and Blum catheter was used for approximately 24 hours until medication was effective. Patient was able to void and has had no issues for the rest of the admission. He will follow-up with urology on an outpatient basis for any further needs. Acute respiratory failure, currently managed on O2 per nasal cannula, IV steroids decreased today from every 6 hours to every 12 hours. COPD exacerbation, medical management with dual nebs O2 and steroids, medications, antibiotics Patient continues to smoke, decreased amounts now he states, education given well as encouragement for smoking Pulmonology consult did and appreciate input Appetite good, eating and drinking adequate amounts, no wheezing noted today Urinary retention, history of BPH History of bladder cancer, now in remission according to patient. Previous cystoscopy with TURBT per Dr. Isabel. Patient is voiding several times since Blum DC'd. Medical management with Flomax throughout hospital stay Hypertension, monitored vital signs every 4 and as warranted throughout hospital stay. Treatment and plan of care was based on any acute needs -continue home meds Hyperlipidemia Medical management SCDs/Lovenox for DVT prophylaxis Protonix for GI prophylaxis Pt. is a DNR, this was confirmed with pt. His wishes will be respected. Plan of care has been discussed with the patient, attending and registered nurse. Patient's plan of care was discussed daily with nurse, patient, and Dr. Arauz Patient has transfer orders out of the intensive care setting but no available beds, his care is based on stepdown level for now. On p.m. discharge patient ambulated in room and in chair without any acute shortness of breath. Was medical stable for discharge. Pt Condition on Discharge: Fair Discharge Disposition: [facility] Discharge Instructions DIET: Follow Instructions for: Heart Healthy Diet Activities you can perform: Weight Bearing as Leela Follow up Referrals: PCP Follow-up - 1 Week Pulmonology - 2 Weeks with Kem Brownlee MD New Medications: Cefuroxime Liq (Ceftin Liq) 250 Mg/5 Ml Susp 500 MG PO BID Infection #10 Ref 0 TAB Prednisone (Prednisone) 20 Mg Tab 40 MG PO BID inflammation #20 TAB Continued Medications: Albuterol 18 GM Inh (Ventolin Hfa 18 GM Inh) 90 Mcg/Act Aer 2 PUFF INH Q4H PRN SHORTNESS OF BREATH #1 Ref 0 INHALER Albuterol 18 GM Inh (Ventolin Hfa 18 GM Inh) 90 Mcg/Act Aer 2 PUFF INH Q4-6H PRN SHORTNESS OF BREATH #1 Ref 0 INHALER Aspirin (Aspirin EC) 81 Mg Tabdr 81 MG PO DAILY blood thinner #30 TAB Budesonide-Formoterol Inh (Symbicort Inh) 160-4.5 Mcg/Act Aero 1 PUFF INH Q12HR #1 Ref 0 INHALER Buspirone (Buspirone) 10 Mg Tab 10 MG PO TID Anxiety Ref 0 TAB Carbidopa-Levodopa (Sinemet) 25-100 Mg Tab 1 TAB PO TID Parkinson Disease Mgmt #90 Ref 0 TAB Carvedilol (Carvedilol) 3.125 Mg Tab 3.125 MG PO BID #60 Ref 0 TAB Clonazepam (Clonazepam) 0.5 Mg Tab 0.5 MG PO BID #60 Ref 0 TAB (This prescription has been renewed) Clopidogrel (Clopidogrel) 75 Mg Tab 75 MG PO DAILY Blood Clot Prevention #30 Ref 0 TAB Donepezil (Donepezil) 10 Mg Tab 10 MG PO HS Dementia #30 Ref 0 TAB Ferrous Sulfate (Feosol) 200 Mg Tab 325 MG PO DAILY Nutritional Supplement #30 Ref 0 TAB Fluoxetine (Fluoxetine) 40 Mg Cap 40 CAP PO DAILY #30 Ref 0 CAP Furosemide (Lasix) 40 Mg Tab 40 MG PO DAILY #30 Ref 0 TAB Gabapentin (Gabapentin) 600 Mg Tab 600 MG PO TID #90 Ref 0 TAB Lovastatin (Lovastatin) 10 Mg Tab 10 MG PO HS Cholesterol Management #30 Ref 0 TAB Meloxicam (Meloxicam) 15 Mg Tab 15 MG PO DAILY Arthritis Pain #30 Ref 0 TAB Multiple Vitamin (Multiple Vitamin) 1 Tab 1 TAB PO DAILY Nutritional Supplement Ref 0 TAB Potassium Chloride ER (Potassium Chloride ER) 10 Meq Cap 10 MEQ PO DAILY Electrolyte Replacement #30 Ref 0 CAP Tamsulosin (Tamsulosin) 0.4 Mg Cap 0.4 MG PO HS Manage Prostate Problems #30 Ref 0 CAP Tramadol (Tramadol) 50 Mg Tab 50 MG PO Q6H PRN PAIN #30 Ref 0 TAB (This prescription has been renewed) Trazodone (Trazodone) 50 Mg Tab 50 MG PO HS Control Depression #30 Ref 0 TAB Alexandria Laboy Apr 13, 2017 14:50
--- NOTE | 2017-04-13 15:33 | HHI.PR ---
Subjective Remarks aler no SOB at rest on O2 via NC Objective Vital Signs Date Time Temp Pulse Resp B/P Pulse Ox O2 Delivery O2 Flow Rate FiO2 04/13/17 12:00 69 04/13/17 12:00 98.2 69 23 173/98 91 04/13/17 09:48 93 21 04/13/17 08:00 68 04/13/17 08:00 98.0 68 27 163/94 91 04/13/17 04:00 60 04/13/17 04:00 97.9 60 32 115/69 93 04/13/17 00:00 58 04/13/17 00:00 97.8 58 18 129/80 91 04/12/17 21:06 91 21 04/12/17 20:00 98.0 67 40 148/91 93 04/12/17 20:00 67 04/12/17 17:00 81 44 89 04/12/17 16:00 66 04/12/17 16:00 98.2 66 24 90 I/O 04/12/17 04/12/17 04/12/17 04/13/17 04/13/17 04/13/17 07:00 15:00 23:00 07:00 15:00 23:00 Intake Total 200 ml 400 ml 350 ml Output Total 600 ml 1650 ml 500 ml 400 ml 750 ml Balance -400 ml -1650 ml -100 ml -400 ml -400 ml Intake Oral 200 ml 400 ml 350 ml IV Total 0 ml Output Urine Total 600 ml 1650 ml 500 ml 400 ml 750 ml # Bowel Movements 2 1 Result Diagram: 04/11/17 1222 04/12/17 0506 Objective Remarks GENERAL: SKIN: Warm and dry. HEAD: Atraumatic. Normocephalic. EYES: Pupils equal and round. No scleral icterus. No injection or drainage. ENT: No nasal bleeding or discharge. Mucous membranes pink and moist. NECK: Trachea midline. No JVD. CARDIOVASCULAR: Regular rate and rhythm. RESPIRATORY: No accessory muscle use. Clear to auscultation. Breath sounds equal bilaterally. GASTROINTESTINAL: Abdomen soft, non-tender, nondistended. Hepatic and splenic margins not palpable. MUSCULOSKELETAL: Extremities without clubbing, cyanosis, or edema. No obvious deformities. NEUROLOGICAL: Awake and alert. No obvious cranial nerve deficits. Motor grossly within normal limits. Five out of 5 muscle strength in the arms and legs. Normal speech. PSYCHIATRIC: Appropriate mood and affect; insight and judgment normal. Assessment and Plan Assessment and Plan ASS COPD ex. , improved RESPIRATORY FAILURE PLAN O2 NEEDED, D/C IF POSSIBLE BRONCHODILATOR THERAPY INCREASE ACTIVITY CXRAY CLEAR OK FOR D/C OFFICE 1 WEEK Kem Brownlee MD Apr 13, 2017 15:33
== END 2017-04-13 15:30 | DRG 189 ==
LOC: NEPE 21:03 → NEDA 23:22 → HIMN 04-10 01:35
PROVIDERS: ADMIT Specialist; ATTEND Specialist
PROC: 5A09357 Assistance with Respiratory Ventilation, Less than 24 Consecutive Hours, Continuous Positive Airway Pressure (ICD-10-PCS; principal; 2017-04-10)
DX: J96.00 Acute respiratory failure, unspecified whether with hypoxia or hypercapnia (principal); J18.9 Pneumonia, unspecified organism; J44.0 Chronic obstructive pulmonary disease with (acute) lower respiratory infection; J44.1 Chronic obstructive pulmonary disease with (acute) exacerbation; N13.8 Other obstructive and reflux uropathy; I10 Essential (primary) hypertension; G20 Parkinson's disease; F32.9 Major depressive disorder, single episode, unspecified; F41.9 Anxiety disorder, unspecified; F17.210 Nicotine dependence, cigarettes, uncomplicated; Z66 Do not resuscitate; G89.29 Other chronic pain; M54.2 Cervicalgia; E78.5 Hyperlipidemia, unspecified; N40.1 Benign prostatic hyperplasia with lower urinary tract symptoms; R33.9 Retention of urine, unspecified; Z91.19 Patient's noncompliance with other medical treatment and regimen; Z85.51 Personal history of malignant neoplasm of bladder; Z86.73 Personal history of transient ischemic attack (TIA), and cerebral infarction without residual deficits; Z79.82 Long term (current) use of aspirin; Z99.81 Dependence on supplemental oxygen
CPT/HCPCS: 36600; 51702; 71010; 71275; 80048; 81001; 82805; 84484; 85025; 85027; 85379; 87641; 93005; 94002; 94003; 94150; 94640; 94664; 96374; 96375; J0456; J0692; J0696; J1650; J2060; J2920; J2930; J7030; J7050; J7512; Q9967

== ENCOUNTER 2017-05-26 22:37 | Emergency (ER) | payer MEDICARE, MEDICAID ==
[~2017-05-26] VITALS: Ht 170.2 cm; Wt 75.0 kg
[~2017-05-26 22:37] MED LIST changes: -ACET325T PO; +ASPI-110 PO; -BACL10TA PO; +BUSP10TA PO; -DEXI30CA PO; +DEXI30CA2 PO; -FERR325T PO; +FERR325T20 PO; +HYDR-3516 PO; +LEVO750T3 PO; -MELO-1 PO; -MUCI30TA2 PO; -MULT-135 PO; +MULTTAB67 PO; -NORC5TAB PO; -OXYGENTANK NAS.CANULA; +PRED20 PO; +TRAM50TA PO; +TRAZ100T6 PO
[2017-05-26 23:15] VITALS: BP 127/84; PULSE 82; RESP 26; TEMP 98; O2SAT 97
[2017-05-26 23:27] VITALS: RESP 24
[2017-05-26] MEDS ORDERED: SODIUM CHLORIDE 0.9% FLUSH 10 ML FLUSH IVF PRN (23:30)
[2017-05-26 23:54] LABS: APTT (PATIENT) 29.4 SEC (24.3-30.1); INTERNATIONAL NORMALIZED RATIO 0.9 RATIO; PROTHROMBIN TIME - PATIENT 10.3 SEC (9.8-11.6)
--- NOTE | 2017-05-27 00:03 | RADRPT ---
EXAM DATE/TIME: 05/26/2017 23:22 [facility] COMPARISON: CHEST SINGLE AP, April 12, 2017, 16:41. INDICATIONS : Pt fell earlier, complaining of shortness of breath. MEDICAL HISTORY : Hypercholesterolemia. Chronic obstructive pulmonary disease. Parkinson's, cva SURGICAL HISTORY : Carotid stent ENCOUNTER: Initial ACUITY: 1 day PAIN SCORE: 7/10 LOCATION: Bilateral chest FINDINGS: The cardiac silhouette is enlarged in transverse diameter. There is elevation of the left hemidiaphra gm. There is prominence of the central pulmonary vasculature with indistinct vascular margins compati ble with vascular congestion but no evidence of overt failure. There is subsegmental atelectasis in t he left base. CONCLUSION: 1. Cardiomegaly and findings of vascular congestion without overt failure. Sony Gavin MD on May 26, 2017 at 23:59 Board Certified Radiologist. This report was verified electronically.
[2017-05-27 00:17] LABS: ALT (GPT) 15 U/L (12-78); ANION GAP 11 MEQ/L (5-15); AST (GOT) 19 U/L (15-37); BICARBONATE 29.4 MEQ/L (21.0-32.0); BLOOD UREA NITROGEN 11 MG/DL (7-18); CHLORIDE 102 MEQ/L (98-107); GLOMERULAR FILTRATION RATE 94 ML/MIN (>89); POTASSIUM 3.7 MEQ/L (3.5-5.1); SODIUM (NA) 142 MEQ/L (136-145)
[2017-05-27 00:20] LABS: ALKALINE PHOSPHATASE 84 U/L (45-117); TOTAL BILIRUBIN ADULT 0.2 MG/DL (0.2-1.0)
[2017-05-27 00:28] LABS: CREATINE KINASE 99 U/L (39-308)
[2017-05-27 00:36] LABS: AUTOMATED NEUTROPHIL # 4.5 TH/MM3 (1.8-7.7); BASOPHIL % 0.5 % (0.0-2.0); EOSINOPHIL % 0.1 % (0.0-4.0); HEMATOCRIT 42.9 % (39.0-51.0); HEMO FLAGS DIFF FINAL; LYMPH % 12.3 % (9.0-44.0); LYMPHOCYTE # 0.7 TH/MM3 (1.0-4.8); MEAN CELL VOLUME 100.4 FL (80.0-100.0); MEAN CORPUSCULAR HEMOGLOBIN 33.8 PG (27.0-34.0); MEAN CORPUSCULAR HGB CONC 33.7 % (32.0-36.0); NEUT % 83.1 % (16.0-70.0); PLATELET COUNT 223 TH/MM3 (150-450); RED BLOOD COUNT 4.28 MIL/MM3 (4.50-5.90); RED CELL DISTRIBUTION WIDTH 13.9 % (11.6-17.2); WHITE BLOOD COUNT 5.5 TH/MM3 (4.0-11.0)
[2017-05-27 00:49] LABS: BACTERIA, URINE RARE /hpf; BLOOD, URINE SMALL (NEG); COMMENT (UR) CULT NOT INDICATED; CULTURE IF INDICATED CULT NOT INDICATED; GLUCOSE,URINE NEG (NEG); HYALINE CAST, URINE 2 /lpf (RARE); KETONE, URINE NEG (NEG); MUCUS URINE FEW /lpf (OCC); NITRITE,URINE NEG (NEG); PH, URINE 5.5 (5.0-8.5); URINE COLOR YELLOW (YELLW/STRAW)
--- NOTE | 2017-05-27 01:21 | PD ---
HPI Chief Complaint: Fall Time Seen by Provider: 23:12 Travel History International Travel<30 days: No Contact w/Intl Traveler<30days: No Traveled to known affect area: No History of Present Illness HPI 66-year-old male arrives by EMS. He had an unwitnessed fall at [facility]. A loss of consciousness is indeterminant. EMS reports the patient was ambulatory on scene and smoking when they arrived. Pt c/o headache and pleuritic chest pain. O2 sat was 90% on RA per EMS. Onset sudden. Timing constant. Evidently the patient had a few drinks tonight, rum and Coke. PFSH Past Medical History Hx Anticoagulant Therapy: Yes Asthma: No Autoimmune Disease: No Blood Disorders: No Anxiety: Yes Depression: Yes Heart Rhythm Problems: Yes (Palpitations) Cancer: Yes (bladder) Cardiovascular Problems: Yes (carotid stents) High Cholesterol: Yes Chemotherapy: No Chest Pain: No COPD: Yes Cerebrovascular Accident: Yes Dementia: Yes Diabetes: No Diminished Hearing: No Diverticulitis: Yes Endocrine: No Gastrointestinal Disorders: Yes (Divurticulitis) Genitourinary: Yes Hepatitis: No Hiatal Hernia: No Hypertension: Yes Immune Disorder: No Implanted Vascular Access Dvce: No Insomnia: Yes Medical other: No Musculoskeletal: Yes (Neck) Neurologic: Yes (Parkinsons) Parkinson's Disease: Yes Psychiatric: Yes Reproductive: No Respiratory: Yes Immunizations Current: Yes Radiation Therapy: No Seizures: Yes (WHEN HAD SUBARACHNOID HEMORRHAGE) Sleep Apnea: No Thyroid Disease: No Tetanus Vaccination: Unknown Influenza Vaccination: Yes Past Surgical History Abdominal Surgery: No Cardiac Surgery: No Ear Surgery: No Endocrine Surgery: No Eye Surgery: No Genitourinary Surgery: No Neurologic Surgery: Yes (STENT IN SUBARACHNOID ARTERY) Oral Surgery: No Thoracic Surgery: Yes (BACK, CERVICLE FUSION, LAMENECTOMY) Other Surgery: Yes Social History Alcohol Use: Yes (several times per week) Tobacco Use: Yes (1/2ppd) Substance Use: No Allergies-Medications (Allergen,Severity, Reaction): Coded Allergies: No Known Allergies (Unverified , 05/26/17) Reported Meds & Prescriptions Reported Meds & Active Scripts Active Levofloxacin 750 Mg Tablet 750 Mg PO DAILY Clonazepam 0.5 Mg Tab 0.5 Mg PO BID Aspirin EC (Aspirin) 81 Mg Tabdr 81 Mg PO DAILY Reported Fluoxetine (Fluoxetine HCl) 40 Mg Cap 40 Cap PO DAILY Trazodone (Trazodone HCl) 100 Mg Tablet 100 Mg PO HS Hydrocodone-Acetaminophen 5-325 mg Tab 1 Tab PO DIRECTED PRN Prednisone 20 Mg Tab 20 Mg PO DIRECTED 40 MG twice a day x 3 days, then 20 MG daily x 3 days, then 10 MG daily x 3 days Tramadol (Tramadol HCl) 50 Mg Tab 50 Mg PO TID PRN Ferosul (Ferrous Sulfate) 325 Mg Tablet 325 Mg PO BID Dexilant (Dexlansoprazole) 30 Mg Cap.bp 30 Mg PO DAILY@0600 Ventolin Hfa 18 GM Inh (Albuterol Sulfate) 90 Mcg/Act Aer 2 Puff INH Q4-6H PRN Buspirone (Buspirone HCl) 10 Mg Tab 10 Mg PO TID Symbicort Inh (Budesonide/Formoterol Fumarate) 160-4.5 Mcg/Act Aero 1 Puff INH Q12HR Multiple Vitamin 1 Tab 1 Tab PO DAILY Potassium Chloride ER (Potassium Chloride) 10 Meq Cap 10 Meq PO DAILY Lasix (Furosemide) 40 Mg Tab 40 Mg PO DAILY Gabapentin 600 Mg Tab 600 Mg PO TID Tamsulosin (Tamsulosin HCl) 0.4 Mg Cap 0.4 Mg PO HS Lovastatin 10 Mg Tab 10 Mg PO HS Donepezil 10 Mg Tab 10 Mg PO HS Sinemet (Carbidopa-Levodopa) 25-100 Mg Tab 1 Tab PO TID Carvedilol 3.125 Mg Tab 3.125 Mg PO BID Clopidogrel (Clopidogrel Bisulfate) 75 Mg Tab 75 Mg PO DAILY Review of Systems Except as stated in HPI: all other systems reviewed are Neg General / Constitutional: No: Fever Physical Exam Narrative GENERAL: 66 yo M, mild distress, WNWD SKIN: Warm and dry. HEAD: Atraumatic. Normocephalic. EYES: Pupils equal and round. No scleral icterus. No injection or drainage. ENT: No nasal bleeding or discharge. Mucous membranes pink and moist. NECK: Trachea midline. No JVD. C-Collar present. CARDIOVASCULAR: Regular rate and rhythm. RESPIRATORY: No accessory muscle use. Clear to auscultation. Breath sounds equal bilaterally. GASTROINTESTINAL: Abdomen soft, non-tender, nondistended. Hepatic and splenic margins not palpable. MUSCULOSKELETAL: Extremities without clubbing, cyanosis, or edema. No obvious deformities. NEUROLOGICAL: Awake and alert. No obvious cranial nerve deficits. Motor grossly within normal limits. Five out of 5 muscle strength in the arms and legs. Normal speech. PSYCHIATRIC: Appropriate mood and affect; insight and judgment normal. Data Data Last Documented VS Vital Signs Date Time Temp Pulse Resp B/P Pulse Ox O2 Delivery O2 Flow Rate FiO2 05/27/17 06:00 76 93 05/27/17 02:45 20 121/82 Nasal Cannula 2 05/26/17 23:15 98.0 VS reviewed Orders Complete Blood Count With Diff (05/26/17 23:23) Comprehensive Metabolic Panel (05/26/17 23:23) B-Type Natriuretic Peptide (05/26/17 23:23) Act Partial Throm Time (Ptt) (05/26/17 23:23) Prothrombin Time / Inr (Pt) (05/26/17 23:23) Ckmb (Isoenzyme) Profile (05/26/17 23:23) Troponin I (05/26/17 23:23) Urinalysis - C+S If Indicated (05/26/17 23:23) Iv Access Insert/Monitor (05/26/17 23:23) Electrocardiogram (05/26/17 23:23) Ecg Monitoring (05/26/17 23:23) Oximetry (05/26/17 23:23) Oxygen Administration (05/26/17 23:23) Chest, Single Ap (05/26/17 23:23) Sodium Chloride 0.9% Flush (Ns Flush) (05/26/17 23:30) Cath For Specimen (05/26/17 23:23) Ct Brain W/O Iv Contrast(Rout) (05/27/17 01:21) Labs Laboratory Tests Test 05/26/17 05/27/17 05/27/17 23:30 00:15 00:30 Prothrombin Time 10.3 SEC Prothromb Time International 0.9 RATIO Ratio Activated Partial 29.4 SEC Thromboplast Time Sodium Level 142 MEQ/L Potassium Level 3.7 MEQ/L Chloride Level 102 MEQ/L Carbon Dioxide Level 29.4 MEQ/L Anion Gap 11 MEQ/L Blood Urea Nitrogen 11 MG/DL Creatinine 0.82 MG/DL Estimat Glomerular Filtration 94 ML/MIN Rate Random Glucose 102 MG/DL Calcium Level 8.6 MG/DL Total Bilirubin 0.2 MG/DL Aspartate Amino Transf 19 U/L (AST/SGOT) Alanine Aminotransferase 15 U/L (ALT/SGPT) Alkaline Phosphatase 84 U/L Total Creatine Kinase 99 U/L Troponin I LESS THAN 0.02 NG/ML B-Type Natriuretic Peptide 14 PG/ML Total Protein 7.5 GM/DL Albumin 3.5 GM/DL White Blood Count 5.5 TH/MM3 Red Blood Count 4.28 MIL/MM3 Hemoglobin 14.4 GM/DL Hematocrit 42.9 % Mean Corpuscular Volume 100.4 FL Mean Corpuscular Hemoglobin 33.8 PG Mean Corpuscular Hemoglobin 33.7 % Concent Red Cell Distribution Width 13.9 % Platelet Count 223 TH/MM3 Mean Platelet Volume 8.4 FL Neutrophils (%) (Auto) 83.1 % Lymphocytes (%) (Auto) 12.3 % Monocytes (%) (Auto) 4.0 % Eosinophils (%) (Auto) 0.1 % Basophils (%) (Auto) 0.5 % Neutrophils # (Auto) 4.5 TH/MM3 Lymphocytes # (Auto) 0.7 TH/MM3 Monocytes # (Auto) 0.2 TH/MM3 Eosinophils # (Auto) 0.0 TH/MM3 Basophils # (Auto) 0.0 TH/MM3 CBC Comment DIFF FINAL Differential Comment Urine Color YELLOW Urine Turbidity CLEAR Urine pH 5.5 Urine Specific Hume 1.013 Urine Protein NEG mg/dL Urine Glucose (UA) NEG mg/dL Urine Ketones NEG mg/dL Urine Occult Blood SMALL Urine Nitrite NEG Urine Bilirubin NEG Urine Urobilinogen LESS THAN 2.0 MG/DL Urine Leukocyte Esterase NEG Urine RBC 4 /hpf Urine WBC 1 /hpf Urine Bacteria RARE /hpf Urine Hyaline Casts 2 /lpf Urine Mucus FEW /lpf Microscopic Urinalysis Comment CULT NOT INDICATED MDM Medical Decision Making Medical Screen Exam Complete: Yes Emergency Medical Condition: Yes Medical Record Reviewed: Yes Differential Diagnosis ICH, PNA, PTX, skin tear, anemia, electrolyte imbalance Narrative Course CBC & BMP Diagram 05/26/17 23:30 05/27/17 00:15 Tn < 0.02 BNP 14 UA: no UTI INR 0.9 Last Impressions Chest X-Ray 05/26/17 1828 Signed Impressions: Service Date/Time: May 23:22 - CONCLUSION: 1. Cardiomegaly and findings of vascular congestion without overt failure. Sony Gavin MD Pain control. The patient is ready for discharge home. Of note there was a 10 cm x 2 cm fairly regular and skin tear along the ulnar aspect of the right forearm, which was irrigated and dressed. Diagnosis Primary Impression: Fall Qualified Code: W19.XXXS - Fall, sequela Referrals: Primary Care Physician 2 days Additional Instructions: You have a choice when it comes to health care, and we are glad that you chose [facility]. Hopefully, we have met your expectations on today's visit. You are welcome to return to [facility] at any time, as we are committed to meeting the health care needs of our community. Med/Other Pt SpecificInfo: No Change to Meds Disposition: 01 DISCHARGE HOME Condition: Stable Wilfredo Millard MD May 27, 2017 01:21
--- NOTE | 2017-05-27 02:14 | RADRPT ---
EXAM DATE/TIME: 05/27/2017 01:26 [facility] COMPARISON: CT BRAIN W/O CONTRAST, January 09, 2017, 21:11. INDICATIONS : Trauma, fall. RADIATION DOSE: 52.18 CTDIvol (mGy) MEDICAL HISTORY : Dementia. Parkinsons. Cerebrovascular disease.Hypertension. SURGICAL HISTORY : Stent. ENCOUNTER: Initial ACUITY: 1 day PAIN SCALE: 10/10 LOCATION: cranial TECHNIQUE: Multiple contiguous axial images were obtained of the head. Using automated exposure control and adj ustment of the mA and/or kV according to patient size, radiation dose was kept as low as reasonably a chievable to obtain optimal diagnostic quality images. DICOM format image data is available electro nically for review and comparison. FINDINGS: No acute intracranial hemorrhage is identified. No excessive fluid clips are present. There is hypode nsity in the left basal ganglia measuring 8 mm which may reflect lacunar infarct age uncertain. There is a coiled stent in the region of the supraclinoid carotid artery on the right. Posterior fossa str uctures are unremarkable. CONCLUSION: 1. Lacunar infarct left basal ganglia age uncertain. No hemorrhage is identified Sony Gavin MD on May 27, 2017 at 2:11 Board Certified Radiologist. This report was verified electronically.
[2017-05-27 02:45] VITALS: BP 121/82; PULSE 79; RESP 20; O2SAT 95
[2017-05-27 04:00] VITALS: PULSE 84; O2SAT 95
[2017-05-27 05:00] VITALS: PULSE 68; O2SAT 93
[2017-05-27 06:00] VITALS: PULSE 76; O2SAT 93
[2017-05-27 07:49] VITALS: BP 142/75
--- NOTE | 2017-05-27 11:15 | EKG ---
Date Performed: 05/26/2017 Time Performed: 23:47:54 PTAGE: 66 years EKG: Sinus rhythm NORMAL ECG Since PREVIOUS TRACING , no significant change noted PREVIOUS TRACIN04/09/2017 21.21 DOCTOR: Sony Cardoso Interpretating Date/Time 05/27/2017 11:14:44
== END 2017-05-27 07:51 | disposition home or self-care (01) ==
LOC: NEPC 22:37 → NEPD 05-27 07:51
DX: S51.811A Laceration without foreign body of right forearm, initial encounter (principal); I51.7 Cardiomegaly; R51 Headache; R07.89 Other chest pain; I10 Essential (primary) hypertension; G20 Parkinson's disease; J44.9 Chronic obstructive pulmonary disease, unspecified; W19.XXXA Unspecified fall, initial encounter; Y92.129 Unspecified place in nursing home as the place of occurrence of the external cause
CPT/HCPCS: 70450; 71010; 80053; 81001; 82550; 83880; 84484; 85025; 85610; 85730; 93005; 99285